=== PATIENT | male | born 1965 | race African-American/Black ===

== ENCOUNTER 2016-11-28 09:46 | Inpatient (IN) | payer OTHER ==
[2016-11-28 10:59] VITALS: BMI 25.8
--- NOTE | 2016-11-28 11:34 | HP ---
COWS - Scale Resting Pulse: 0= [place] 80 or Below Sweatin=Flushed/Facial Moisture Restless Observation: 1= Difficult to Sit Still Pupil Size: 0= Normal to Room Light Bone or Joint Aches: 2= Severe Diffuse Aches Runny Nose/ Eye Tearin= Nasal Congestion GI Upset > 30mins: 3= Vomiting/Diarrhea Tremor Observation: 2= Slight Tremor Visible Yawning Observation: 1= 1-2x During Session Anxiety or Irritability: 2=Irritable/Anxious Goose Flesh Skin: 3=Piloerection COWS Score: 17 CIWA Score - CIWA Score Nausea/Vomitin Muscle Tremors: 3 Anxiety: 4-Mod. Anxious/Guarded Agitation: 2 Paroxysmal Sweats: 3 Orientation: 0-Oriented Tacttile Disturbances: 0-None Auditory Disturbances: 2-Mild Harshness/Frighten Visual Disturbances: 2-Mild Sensitivity Headache: 0-None Present CIWA-Ar Total Score: 21 Admission ROS BHS - HPI Chief Complaint: "I need to stop myself from being an addict like I was in the past. I need to get help." Patient is here to Detox from Alcohol, Heroin, and Percocet (Prescription and from street). Allergies/Adverse Reactions: Allergies Allergy/AdvReac Type Severity Reaction Status Date / Time No Known Allergies Allergy Verified 11/28/16 10:50 History of Present Illness: Pt. is a 51 YO male here to Detox from Alcohol, Heroin, and Percocet ( Prescription and from Street). This is pt.'s first Detox Admission at [facility]. Exam Limitations: No Limitations - Ebola screening Have you traveled outside of the country in the last 21 days: No Have you had contact with anyone from an Ebola affected area: No Have you been sick,other than usual withdrawal symptoms: No Do you have a fever: No - Review of Systems Constitutional: Chills, Diaphoresis, Fever, Loss of Appetite, Malaise, Night Sweats, Changes in sleep, Unexplained wgt Loss (Lost approx. 10 lbs. over last 1 year.) EENT: reports: Blurred Vision, Dental Problems (Several missing teeth.) Respiratory: reports: No Symptoms reported Cardiac: reports: No Symptoms Reported GI: reports: Constipated, Nausea, Poor Appetite, Vomiting, Indigestion, Abdominal cramping : reports: No Symptoms Reported Musculoskeletal: reports: Back Pain, Joint Stiffness Integumentary: reports: No Symptoms Reported Neuro: reports: Tremors Endocrine: reports: No Symptoms Reported Hematology: reports: No Symptoms Reported Psychiatric: reports: Judgement Intact, Mood/Affect Appropiate, Orientated x3, Anxious, Depressed Other Systems: Reviewed and Negative Patient History - Patient Medical History Hx Anemia: No Hx Asthma: No Hx Chronic Obstructive Pulmonary Disease (COPD): No Hx Cancer: No Hx Cardiac Disorders: No Hx Congestive Heart Failure: No Hx Hypertension: Yes (Takes Lisinopril.) Hx Hypercholesterolemia: No Hx Pacemaker: No HX Cerebrovascular Accident: No Hx Seizures: No Hx Dementia: No Hx Diabetes: No Hx Gastrointestinal Disorders: No Hx Liver Disease: No Hx Genitourinary Disorders: No Hx Sexually Transmitted Disorders: No Hx Renal Disease (ESRD): No Hx Thyroid Disease: No Hx Human Immunodeficiency Virus (HIV): No (Last Tested: 1-2 years ago: NEGATIVE. ) Hx Hepatitis C: No (Last Tested Many Years Ago.) Hx Depression: Yes (Takes med.) Hx Suicide Attempt: No (Walked in front of car (stopped) many years ago. PT. DENIES CURRENT SI/HI.) Hx Bipolar Disorder: Yes (Takes med.) Hx Schizophrenia: No - Patient Surgical History Past Surgical History: No Hx Neurologic Surgery: No Hx Cataract Extraction: No Hx Cardiac Surgery: No Hx Lung Surgery: No Hx Breast Surgery: No Hx Breast Biopsy: No Hx Abdominal Surgery: No Hx Appendectomy: No Hx Cholecystectomy: No Hx Genitourinary Surgery: No Hx Section: No Hx Orthopedic Surgery: No Anesthesia Reaction: No - PPD History Previous Implant?: No Documented Results: Negative w/o proof Implanted On Prior [facility] Admission?: No PPD to be Administered?: Yes - Reproductive History Patient is a Female of Child Bearing Age (11 -55 yrs old): No (PATIENT IS MALE.) - Smoking Cessation Smoking history: Current every day smoker Have you smoked in the past 12 months: Yes Aproximately how many cigarettes per day: 20 Cigars Per Day: 0 Hx Chewing Tobacco Use: No Initiated information on smoking cessation: Yes 'Breaking Loose' booklet given: 11/28/16 (GIVEN ON UNIT.) - Substance & Tx. History Hx Alcohol Use: Yes Hx Substance Use: Yes Substance Use Type: Alcohol, Cocaine, Heroin, Marijuana, Opiates, Prescribed Hx Substance Use Treatment: Yes (1 Detox admission many years ago ([place]).) - Substances Abused Alcohol Route: Oral Frequency: Daily Amount used: 1 Pint Liquor, 2 Beers. Age of first use: 15 Date of Last Use: 11/27/16 Heroin Route: Inhalation Frequency: 3-6 times per week Amount used: 2-3 Bags. Age of first use: 50 Date of Last Use: 11/27/16 Percocet Route: Oral Frequency: Daily Amount used: 2-3 X 10-325 mg tablets. Age of first use: 50 Date of Last Use: 11/26/16 Cocaine Route: Inhalation Frequency: 1-3 times last 30 days Amount used: $ 200 Age of first use: 16 Date of Last Use: 11/27/16 Marijuana/Hashish Route: Smoking Frequency: 1-3 times last 30 days Amount used: 1 Gram Age of first use: 15 Date of Last Use: 11/26/16 Oxycontin Route: Oral Frequency: Daily Amount used: 3 X 10 mg tablets. Age of first use: 50 Date of Last Use: 11/26/16 Family Disease History - Family Disease History Family History: Denies Admission Physical Exam S - Vital Signs Vital Signs: Vital Signs - 24 hr 11/28/16 10:54 Temperature 97.3 F L Pulse Rate 60 Respiratory 20 Rate Blood Pressure 135/70 - Physical General Appearance: Yes: Nourished, Appropriately Dressed, Mild Distress, Sweating, Anxious HEENTM: Yes: Hearing grossly Normal, Normocephalic, Normal Voice, COMFORT, Pharynx Normal Respiratory: Yes: Chest Non-Tender, Lungs Clear, No Respiratory Distress Neck: Yes: No masses,lesions,Nodules, Supple, Trachea in good position Breast: Yes: Breast Exam Deferred Cardiology: Yes: Regular Rhythm, Regular Rate, S1, S2 Abdominal: Yes: Normal Bowel Sounds, Non Tender, Flat, Soft Genitourinary: Yes: Within Normal Limits Back: Yes: Decreased Range of Motion, Vertebral Tenderness Musculoskeletal: Yes: Gait Steady, Back pain, Muscle Pain Extremities: Yes: Tremors Neurological: Yes: Fully Oriented, Alert, Normal Mood/Affect, Normal Response Integumentary: Yes: Normal Color, Warm Lymphatic: Yes: Within Normal Limits - Diagnostic (1) Alcohol dependence with uncomplicated withdrawal Current Visit: Yes Status: Acute (2) Opioid dependence with withdrawal Current Visit: Yes Status: Acute (3) Cocaine dependence, uncomplicated Current Visit: Yes Status: Acute (4) Cannabis dependence, uncomplicated Current Visit: Yes Status: Acute (5) Hypertension Current Visit: Yes Status: Chronic Qualifiers: Hypertension type: essential hypertension Qualified Code(s): I10 - Essential (primary) hypertension (6) Nicotine dependence Current Visit: Yes Status: Chronic Qualifiers: Nicotine product type: cigarettes Substance use status: uncomplicated Qualified Code(s): F17.210 - Nicotine dependence, cigarettes, uncomplicated (7) History of depression Current Visit: Yes Status: Chronic (8) History of bipolar disorder Current Visit: Yes Status: Chronic Cleared for Admission S - Detox or Rehab [facility] Level of Care: Medically Managed Detox Regimen/Protocol: Methadone/Librium S Breath Alcohol Content Breath Alcohol Content: 0 Urine Drug Screen - Results Drug Screen Negative: No Urine Drug Screen Results: THC-Marijuana, MAURA-Cocaine, OPI-Opiates
[2016-11-28] MEDS ORDERED: MAGNESIUM CITRATE 300 ML BOTTLE PO PRN (12:13)
[2016-11-28] MEDS ORDERED: chlordiazePOXIDE HCL 25 MG CAPSULE PO PRN (12:13)
[2016-11-28] MEDS ORDERED: IBUPROFEN 400 MG TABLET (FP) PO PRN (12:13)
[2016-11-28] MEDS ORDERED: MAGNESIUM HYDROX 2400MG/30ML ORAL SUSPENSION 30 ML CUP PO PRN (12:13)
[2016-11-28] MEDS ORDERED: MAG HYDROX/AL HYDROX/SIMETH 30 ML UNIT-DOSE CUP PO PRN (12:13)
[2016-11-28] MEDS ORDERED: guaiFENesin/D-METHORPHAN HB 10 ML UNIT-DOSE CUPS PO PRN (12:13)
[2016-11-28] MEDS ORDERED: LOPERAMIDE HCL 2 MG CAPSULE PO PRN (12:13)
[2016-11-28] MEDS ORDERED: diphenhydrAMINE HCL 50 MG CAPSULE PO PRN (12:13)
[2016-11-28] MEDS ORDERED: chlordiazePOXIDE HCL 25 MG CAPSULE PO ONE (12:13)
[2016-11-28] MEDS ORDERED: P-EPHED 60MG/TRIPROLIDI 2.5MG TABLET PO PRN (12:13)
[2016-11-28] MEDS ORDERED: hydrOXYzine PAMOATE 50 MG CAPSULE (FP) PO PRN (12:13)
[2016-11-28] MEDS ORDERED: MENTHOL/PHENOL 1 EACH UD MM PRN (12:13)
[2016-11-28] MEDS ORDERED: METHADONE HCL 10 MG TABLET (FOR DETOX USE ONLY) PO ONE ×2 (13:30→23:00)
[2016-11-28] MEDS: LISINOPRIL 10 MG TABLET (FP) PO SCH (13:33)
[2016-11-28] MEDS: NICOTINE 21 MG/24 HOURS TOPICAL PATCH TD SCH (13:33)
[2016-11-28] MEDS: chlordiazePOXIDE HCL 25 MG CAPSULE PO SCH ×2 (17:34→22:33)
[2016-11-28 18:09] LABS: URINE APPEARANCE CLEAR; URINE BILIRUBIN NEGATIVE (NEGATIVE); URINE BLOOD NEGATIVE (NEGATIVE); URINE COLOR YELLOW; URINE GLUCOSE (UA) NEGATIVE (NEGATIVE); URINE KETONE TRACE (NEGATIVE); URINE LEUK ESTERASE NEGATIVE (NEGATIVE); URINE NITRITE NEGATIVE (NEGATIVE); URINE PROTEIN NEGATIVE (NEGATIVE); URINE UROBILINOGEN NEGATIVE E.U./dl (0.2-1.0)
[2016-11-28] MEDS: NICOTINE POLACRILEX 2 MG GUM BC PRN (20:28)
[2016-11-28] MEDS: THIAMINE HCL 100 MG TABLET (FP) PO SCH (22:33)
[2016-11-29] MEDS: chlordiazePOXIDE HCL 25 MG CAPSULE PO SCH ×4 (05:48→22:13)
[2016-11-29] MEDS: NICOTINE POLACRILEX 2 MG GUM BC PRN (06:40)
[2016-11-29] MEDS ORDERED: METHADONE HCL 10 MG TABLET (FOR DETOX USE ONLY) PO SCH (10:00)
[2016-11-29 10:04] LABS: MCH 32.1 pg (25.7-33.7); MCHC 33.9 g/dl (32.0-35.9); MEAN CELL VOLUME 94.6 fl (80-96); MEAN PLT VOLUME 9.2 fl (7.5-11.1); PLATELET COUNT 166 K/MM3 (134-434); RDW 12.5 % (11.9-15.9); WHITE BLOOD COUNT 7.2 K/mm3 (4.0-10.0)
[2016-11-29] MEDS ORDERED: ONDANSETRON *ODT* 4 MG TABLET SL PRN (10:07)
[2016-11-29 10:09] LABS: ALBUMIN 3.7 g/dl (3.4-5.0); ALK PHOS 77 U/L (45-117); ANION GAP 7 (8-16); BILIRUBIN,TOTAL 0.2 mg/dL (0.2-1.0); CALCIUM 8.9 mg/dL (8.5-10.1); CO2 31 mmol/L (21-32); COCKROFT - GAULT 99.79; GLUCOSE,RANDOM 77 mg/dL (74-106); SGOT/AST 17 U/L (15-37); SGPT/ALT 20 U/L (12-78); TOT PROT 6.8 g/dl (6.4-8.2)
[2016-11-29] MEDS: LISINOPRIL 10 MG TABLET (FP) PO SCH (10:26)
[2016-11-29] MEDS: PRENATAL VITAMINS W/ FOLIC ACID TABLET (FP) PO SCH (10:26)
[2016-11-29] MEDS: NICOTINE 21 MG/24 HOURS TOPICAL PATCH TD SCH (10:27)
[2016-11-29] MEDS ORDERED: ONDANSETRON *ODT* 4 MG TABLET SL ONE (10:30)
--- NOTE | 2016-11-29 10:30 | EKG ---
Test Reason : Blood Pressure : / mmHG Vent. Rate : 058 BPM Atrial Rate : 058 BPM P-R Int : 144 ms QRS Dur : 088 ms QT Int : 412 ms P-R-T Axes : 071 061 043 degrees QTc Int : 404 ms SINUS BRADYCARDIA OTHERWISE NORMAL ECG NO PREVIOUS ECGS AVAILABLE Confirmed by MD TAMMIE, RANDOLPH ([id number]) on 11/29/2016 10:29:42 AM Referred By: Confirmed By:RANDOLPH CHO MD
--- NOTE | 2016-11-29 10:56 | CONSULT ---
[facility] Psychiatric Consult - Data Date of interview: 11/29/16 Admission source: [facility] Identifying data: Mr Lomeli is a 51 years old single Black male, unemployed, domiciled living with girlfriend Substance Abuse History: - Smoking Cessation. Smoking history: Current every day smoker. Have you smoked in the past 12 months: Yes. Aproximately how many cigarettes per day: 20. Cigars Per Day: 0. Hx Chewing Tobacco Use: No. Initiated information on smoking cessation: Yes. 'Breaking Loose' booklet given : 11/28/16 (GIVEN ON UNIT.). - Substance & Tx. History. Hx Alcohol Use: Yes. Hx Substance Use: Yes. Substance Use Type: Alcohol, Cocaine, Heroin, Marijuana , Opiates, Prescribed. Hx Substance Use Treatment: Yes (1 Detox admission many years ago ([place]).). - Substances Abused. Alcohol. Route: Oral. Frequency: Daily. Amount used: 1 Pint Liquor, 2 Beers. Age of first use: 15. Date of Last Use: 11/27/16. Heroin. Route: Inhalation. Frequency: 3-6 times per week. Amount used: 2-3 Bags. Age of first use: 50. Date of Last Use : 11/27/16. Percocet. Route: Oral. Frequency: Daily. Amount used: 2-3 X 10-325 mg tablets. Age of first use: 50. Date of Last Use: 11/26/16. Cocaine. Route: Inhalation. Frequency: 1-3 times last 30 days. Amount used: $ 200. Age of first use: 16. Date of Last Use: 11/27/16. Marijuana/ Hashish. Route: Smoking. Frequency: 1-3 times last 30 days. Amount used: 1 Gram. Age of first use: 15. Date of Last Use: 11/26/16. Oxycontin. Route : Oral. Frequency: Daily. Amount used: 3 X 10 mg tablets. Age of first use: 50. Date of Last Use: 11/26/16 Medical History: Significant for HtN, GERD, LBP Psychiatric History: Reports being diagnosed with Bipolar Disorder in 1992 and has had several psychiatric admisiions to [facility]/[place] [id number], [facility] and most recently at [facility] 4 months ago. He was discharged on Effexor 25 mg po daily, Seroquel 400 mg po HS. Reports that [facility] up to 6-7 months ago.Reports history of suicidal attempt by crossing in front of cars. At present, reports feeling depressed and sleeping poorly Physical/Sexual Abuse/Trauma History: Denies Mental Status Exam - Mental Status Exam Alert and Oriented to: Time, Place, Person Cognitive Function: Fair Patient Appearance: Well Groomed Mood: Depressed Affect: Appropriate Patient Behavior: Cooperative Speech Pattern: Clear Voice Loudness: Normal Thought Process: Intact Thought Disorder: Not Present Hallucinations: Denies Suicidal Ideation: Denies, Past, Plan Homicidal Ideation: Denies Insight/Judgement: Poor Sleep: Poorly Appetite: Fair Muscle strength/Tone: Normal Gait/Station: Normal Psychiatric Findings - Problem List ([place] 1, 2,3) (1) Bipolar disorder Current Visit: Yes Status: Acute (2) Alcohol dependence with uncomplicated withdrawal Current Visit: Yes Status: Acute (3) History of bipolar disorder Current Visit: Yes Status: Chronic (4) Cocaine dependence, uncomplicated Current Visit: Yes Status: Acute (5) Cannabis dependence, uncomplicated Current Visit: Yes Status: Acute (6) Nicotine dependence Current Visit: Yes Status: Chronic Qualifiers: Nicotine product type: cigarettes Substance use status: uncomplicated Qualified Code(s): F17.210 - Nicotine dependence, cigarettes, uncomplicated (7) Hypertension Current Visit: Yes Status: Chronic Qualifiers: Hypertension type: essential hypertension Qualified Code(s): I10 - Essential (primary) hypertension - Initial Treatment Plan Initial Treatment Plan: Start Seroquel 100 mg po HS and Effexor 25 mg po daily
[2016-11-29 11:09] LABS: HIV 1 & 2 AB NEGATIVE; HIV 1 AGp24 NEGATIVE
[2016-11-29 11:41] LABS: SICKLE CELL SCREEN NEGATIVE (NEGATIVE)
[2016-11-29] MEDS: VENLAFAXINE HCL 25 MG TABLET PO SCH (12:09)
--- NOTE | 2016-11-29 12:19 | PN ---
S CIWA - CIWA Score Nausea/Vomitin Muscle Tremors: 4-Moderate,w/Arms Extend Anxiety: 4-Mod. Anxious/Guarded Agitation: 4-Moderately Restless Paroxysmal Sweats: 3 Orientation: 0-Oriented Tacttile Disturbances: 0-None Auditory Disturbances: 0-None Visual Disturbances: 0-None Headache: 0-None Present CIWA-Ar Total Score: 20 BHS COWS - Scale Resting Pulse: 0= [place] 80 or Below Sweatin=Flushed/Facial Moisture Restless Observation: 3= Extraneous Movement Pupil Size: 0= Normal to Room Light Bone or Joint Aches: 1= Mild Discomfort Runny Nose/ Eye Tearin= Runny Nose/Eyes GI Upset > 30mins: 3= Vomiting/Diarrhea Tremor Observation of Outstretched Hands: 2= Slight Tremor Visible Yawning Observation: 1= 1-2x During Session Anxiety or Irritability: 2=Irritable/Anxious Goose Flesh Skin: 0=Smooth Skin COWS Score: 16 S Progress Note (SOAP) Subjective: Anxiety,tremors,sweating,interrupted sleep,restless Objective: 11/29/16 12:18 Vital Signs - 8 hr 11/29/16 11/29/16 06:16 09:47 Temperature 96.4 F L 96.7 F L Pulse Rate 52 L 51 L Respiratory 16 18 Rate Blood Pressure 107/61 127/71 Laboratory Tests 11/28/16 11/29/16 11/29/16 17:00 07:15 07:15 WBC 7.2 RBC 4.33 Hgb 13.9 Hct 40.9 MCV 94.6 MCHC 33.9 RDW 12.5 Plt Count 166 MPV 9.2 Sickle Cell Screen Negative Sodium 140 Potassium 4.1 Chloride 102 Carbon Dioxide 31 Anion Gap 7 L BUN 20 H Creatinine 1.0 Creat Clearance w eGFR > 60 Random Glucose 77 Calcium 8.9 Total Bilirubin 0.2 AST 17 ALT 20 Alkaline Phosphatase 77 Total Protein 6.8 Albumin 3.7 Urine Color Yellow Urine Appearance Clear Urine pH 5.0 Ur Specific [place] 1.025 Urine Protein Negative Urine Glucose (UA) Negative Urine Ketones Trace H Urine Blood Negative Urine Nitrite Negative Urine Bilirubin Negative Urine Urobilinogen Negative Ur Leukocyte Esterase Negative RPR Titer HIV 1&2 Antibody Screen HIV P24 Antigen 11/29/16 11/29/16 07:15 07:30 WBC RBC Hgb Hct MCV MCHC RDW Plt Count MPV Sickle Cell Screen Sodium Potassium Chloride Carbon Dioxide Anion Gap BUN Creatinine Creat Clearance w eGFR Random Glucose Calcium Total Bilirubin AST ALT Alkaline Phosphatase Total Protein Albumin Urine Color Urine Appearance Urine pH Ur Specific [place] Urine Protein Urine Glucose (UA) Urine Ketones Urine Blood Urine Nitrite Urine Bilirubin Urine Urobilinogen Ur Leukocyte Esterase RPR Titer Nonreactive HIV 1&2 Antibody Screen Negative HIV P24 Antigen Negative labs noted Assessment: 11/29/16 12:19 Withdrawal sx. Plan: Continue detox
[2016-11-29] MEDS: PANTOPRAZOLE 40 MG TABLET (FP) PO SCH (13:31)
[2016-11-29] MEDS: THIAMINE HCL 100 MG TABLET (FP) PO SCH (22:13)
[2016-11-29] MEDS: QUEtiapine FUMARATE 100 MG TABLET (FP) PO SCH (22:13)
[2016-11-29] MEDS: TRIMETHOBENZAMIDE HCL 200MG/2ML INJ IM PRN (22:39)
[2016-11-30] MEDS: chlordiazePOXIDE HCL 25 MG CAPSULE PO SCH ×2 (05:49→10:36)
[2016-11-30] MEDS: TRIMETHOBENZAMIDE HCL 200MG/2ML INJ IM PRN (09:34)
[2016-11-30] MEDS: PRENATAL VITAMINS W/ FOLIC ACID TABLET (FP) PO SCH (10:36)
[2016-11-30] MEDS: METHADONE HCL 5 MG TABLET (FOR DETOX USE ONLY) PO SCH (10:36)
[2016-11-30] MEDS: LISINOPRIL 10 MG TABLET (FP) PO SCH (10:36)
[2016-11-30] MEDS: PANTOPRAZOLE 40 MG TABLET (FP) PO SCH (10:36)
[2016-11-30] MEDS: VENLAFAXINE HCL 25 MG TABLET PO SCH (10:37)
[2016-11-30] MEDS: NICOTINE 21 MG/24 HOURS TOPICAL PATCH TD SCH (10:37)
--- NOTE | 2016-11-30 10:52 | PN ---
[facility] CIWA - CIWA Score Nausea/Vomitin Muscle Tremors: 4-Moderate,w/Arms Extend Anxiety: 4-Mod. Anxious/Guarded Agitation: 4-Moderately Restless Paroxysmal Sweats: 1-Minimal Palms Moist Orientation: 0-Oriented Tacttile Disturbances: 3-Moderate Itch/Numb/Burn Auditory Disturbances: 0-None Visual Disturbances: 0-None Headache: 0-None Present CIWA-Ar Total Score: 21 S COWS - Scale Resting Pulse: 0= [place] 80 or Below Sweatin= Chills/Flushing Restless Observation: 3= Extraneous Movement Pupil Size: 2= Moderately Dilated Bone or Joint Aches: 4=Acute Joint/Muscle Pain Runny Nose/ Eye Tearin= Nasal Congestion GI Upset > 30mins: 1= Stomach Cramp Tremor Observation of Outstretched Hands: 1= Tremor [place], Not Seen Yawning Observation: 2= >3x During Session Anxiety or Irritability: 2=Irritable/Anxious Goose Flesh Skin: 0=Smooth Skin COWS Score: 17 [facility] Progress Note (SOAP) Subjective: ANXIETY,SWEATS,NAUSEA,VOMITING,INTERMITTENT SLEEP. Objective: 11/30/16 10:52 Vital Signs Temperature 97.3 F L 11/30/16 09:46 Pulse Rate 58 L 11/30/16 09:46 Respiratory Rate 18 11/30/16 09:46 Blood Pressure 132/82 11/30/16 09:46 O2 Sat by Pulse Oximetry (%) Laboratory Last Values WBC 7.2 K/mm3 (4.0-10.0) 11/29/16 07:15 RBC 4.33 M/mm3 (4.00-5.60) 11/29/16 07:15 Hgb 13.9 GM/dL (11.7-16.9) 11/29/16 07:15 Hct 40.9 % (35.4-49) 11/29/16 07:15 MCV 94.6 fl (80-96) 11/29/16 07:15 MCHC 33.9 g/dl (32.0-35.9) 11/29/16 07:15 RDW 12.5 % (11.9-15.9) 11/29/16 07:15 Plt Count 166 K/MM3 (134-434) 11/29/16 07:15 MPV 9.2 fl (7.5-11.1) 11/29/16 07:15 Sickle Cell Screen Negative (NEGATIVE) 11/29/16 07:15 Sodium 140 mmol/L (136-145) 11/29/16 07:15 Potassium 4.1 mmol/L (3.5-5.1) 11/29/16 07:15 Chloride 102 mmol/L (98-107) 11/29/16 07:15 Carbon Dioxide 31 mmol/L (21-32) 11/29/16 07:15 Anion Gap 7 (8-16) L 11/29/16 07:15 BUN 20 mg/dL (7-18) H 11/29/16 07:15 Creatinine 1.0 mg/dL (0.7-1.3) 11/29/16 07:15 Creat Clearance w eGFR > 60 (>60) 11/29/16 07:15 Random Glucose 77 mg/dL (74-106) 11/29/16 07:15 Calcium 8.9 mg/dL (8.5-10.1) 11/29/16 07:15 Total Bilirubin 0.2 mg/dL (0.2-1.0) 11/29/16 07:15 AST 17 U/L (15-37) 11/29/16 07:15 ALT 20 U/L (12-78) 11/29/16 07:15 Alkaline Phosphatase 77 U/L (45-117) 11/29/16 07:15 Total Protein 6.8 g/dl (6.4-8.2) 11/29/16 07:15 Albumin 3.7 g/dl (3.4-5.0) 11/29/16 07:15 Urine Color Yellow 11/28/16 17:00 Urine Appearance Clear 11/28/16 17:00 Urine pH 5.0 (5.0-8.0) 11/28/16 17:00 Ur Specific [place] 1.025 (1.005-1.025) 11/28/16 17:00 Urine Protein Negative (NEGATIVE) 11/28/16 17:00 Urine Glucose (UA) Negative (NEGATIVE) 11/28/16 17:00 Urine Ketones Trace (NEGATIVE) H 11/28/16 17:00 Urine Blood Negative (NEGATIVE) 11/28/16 17:00 Urine Nitrite Negative (NEGATIVE) 11/28/16 17:00 Urine Bilirubin Negative (NEGATIVE) 11/28/16 17:00 Urine Urobilinogen Negative E.U./dl (0.2-1.0) 11/28/16 17:00 Ur Leukocyte Esterase Negative (NEGATIVE) 11/28/16 17:00 RPR Titer Nonreactive (NONREACTIVE) 11/29/16 07:15 Hepatitis C Antibody 0.1 s/co ratio (0.0-0.9) 11/29/16 07:20 HIV 1&2 Antibody Screen Negative 11/29/16 07:30 HIV P24 Antigen Negative 11/29/16 07:30 Assessment: 11/30/16 10:52 WITHDRAWAL SX Plan: CONTINUE DETOX
[2016-11-30] MEDS: NICOTINE POLACRILEX 2 MG GUM BC PRN (14:39)
[2016-11-30] MEDS: chlordiazePOXIDE 5 MG CAPSULE PO SCH ×2 (17:26→22:59)
[2016-11-30] MEDS: THIAMINE HCL 100 MG TABLET (FP) PO SCH (21:44)
[2016-11-30] MEDS: QUEtiapine FUMARATE 100 MG TABLET (FP) PO SCH (21:45)
[2016-12-01] MEDS: chlordiazePOXIDE 5 MG CAPSULE PO SCH ×2 (06:04→10:38)
[2016-12-01] MEDS: METHADONE HCL 5 MG TABLET (FOR DETOX USE ONLY) PO SCH (10:38)
[2016-12-01] MEDS: PRENATAL VITAMINS W/ FOLIC ACID TABLET (FP) PO SCH (10:38)
[2016-12-01] MEDS: VENLAFAXINE HCL 25 MG TABLET PO SCH (10:38)
[2016-12-01] MEDS: LISINOPRIL 10 MG TABLET (FP) PO SCH (10:38)
[2016-12-01] MEDS: PANTOPRAZOLE 40 MG TABLET (FP) PO SCH (10:38)
[2016-12-01] MEDS: NICOTINE 21 MG/24 HOURS TOPICAL PATCH TD SCH (10:39)
--- NOTE | 2016-12-01 11:12 | PN ---
S Progress Note (SOAP) Subjective: ALERT,IRRITABLE,ANXIOUS,INTERRUPTED SLEEP Objective: 12/01/16 11:11 Vital Signs Temperature 97.1 F L 12/01/16 09:28 Pulse Rate 60 12/01/16 09:28 Respiratory Rate 18 12/01/16 09:28 Blood Pressure 139/79 12/01/16 09:28 O2 Sat by Pulse Oximetry (%) Assessment: 12/01/16 11:11 WITHDRAWAL SYMPTOM Plan: CONTINUE DETOX
[2016-12-01] MEDS: NICOTINE POLACRILEX 2 MG GUM BC PRN (15:05)
[2016-12-01] MEDS: chlordiazePOXIDE HCL 10 MG CAPSULE PO SCH ×2 (17:04→22:31)
[2016-12-01] MEDS: ACETAMINOPHEN 325 MG TABLET (FP) PO PRN (20:25)
[2016-12-01] MEDS: THIAMINE HCL 100 MG TABLET (FP) PO SCH (22:19)
[2016-12-01] MEDS: QUEtiapine FUMARATE 100 MG TABLET (FP) PO SCH (22:19)
[2016-12-02] MEDS: ACETAMINOPHEN 325 MG TABLET (FP) PO PRN ×2 (05:52→19:33)
[2016-12-02] MEDS: chlordiazePOXIDE HCL 10 MG CAPSULE PO SCH ×2 (05:52→10:45)
[2016-12-02] MEDS: NICOTINE POLACRILEX 2 MG GUM BC PRN ×3 (08:47→22:46)
[2016-12-02] MEDS ORDERED: METHADONE HCL 10 MG TABLET (FOR DETOX USE ONLY) PO SCH (10:00)
[2016-12-02] MEDS: PRENATAL VITAMINS W/ FOLIC ACID TABLET (FP) PO SCH (10:45)
[2016-12-02] MEDS: VENLAFAXINE HCL 25 MG TABLET PO SCH (10:45)
[2016-12-02] MEDS: LISINOPRIL 10 MG TABLET (FP) PO SCH (10:45)
[2016-12-02] MEDS: NICOTINE 21 MG/24 HOURS TOPICAL PATCH TD SCH (10:45)
[2016-12-02] MEDS: PANTOPRAZOLE 40 MG TABLET (FP) PO SCH (10:45)
--- NOTE | 2016-12-02 12:15 | PN ---
BHS Progress Note (SOAP) Subjective: Anxious, Interrupted Sleep, Body Aches, H/A, Sweating. Objective: PT. A & O X 3, OBSERVED AMBULATING ON UNIT. 12/02/16 12:13 Vital Signs Temperature 97.4 F L 12/02/16 09:14 Pulse Rate 61 12/02/16 09:14 Respiratory Rate 18 12/02/16 09:14 Blood Pressure 127/77 12/02/16 09:14 O2 Sat by Pulse Oximetry (%) Laboratory Tests 11/28/16 11/29/16 11/29/16 17:00 07:15 07:15 WBC 7.2 RBC 4.33 Hgb 13.9 Hct 40.9 MCV 94.6 MCHC 33.9 RDW 12.5 Plt Count 166 MPV 9.2 Sickle Cell Screen Negative Sodium 140 Potassium 4.1 Chloride 102 Carbon Dioxide 31 Anion Gap 7 L BUN 20 H Creatinine 1.0 Creat Clearance w eGFR > 60 Random Glucose 77 Calcium 8.9 Total Bilirubin 0.2 AST 17 ALT 20 Alkaline Phosphatase 77 Total Protein 6.8 Albumin 3.7 Urine Color Yellow Urine Appearance Clear Urine pH 5.0 Ur Specific [place] 1.025 Urine Protein Negative Urine Glucose (UA) Negative Urine Ketones Trace H Urine Blood Negative Urine Nitrite Negative Urine Bilirubin Negative Urine Urobilinogen Negative Ur Leukocyte Esterase Negative RPR Titer Hepatitis C Antibody HIV 1&2 Antibody Screen HIV P24 Antigen 11/29/16 11/29/16 11/29/16 07:15 07:20 07:30 WBC RBC Hgb Hct MCV MCHC RDW Plt Count MPV Sickle Cell Screen Sodium Potassium Chloride Carbon Dioxide Anion Gap BUN Creatinine Creat Clearance w eGFR Random Glucose Calcium Total Bilirubin AST ALT Alkaline Phosphatase Total Protein Albumin Urine Color Urine Appearance Urine pH Ur Specific [place] Urine Protein Urine Glucose (UA) Urine Ketones Urine Blood Urine Nitrite Urine Bilirubin Urine Urobilinogen Ur Leukocyte Esterase RPR Titer Nonreactive Hepatitis C Antibody 0.1 HIV 1&2 Antibody Screen Negative HIV P24 Antigen Negative LABS NOTED. Assessment: 12/02/16 12:13 WITHDRAWAL SYMPTOMS. Plan: CONTINUE DETOX.
[2016-12-02] MEDS: THIAMINE HCL 100 MG TABLET (FP) PO SCH (22:45)
[2016-12-02] MEDS: QUEtiapine FUMARATE 100 MG TABLET (FP) PO SCH (22:46)
[2016-12-03] MEDS: NICOTINE POLACRILEX 2 MG GUM BC PRN (05:40)
[2016-12-03] MEDS ORDERED: METHADONE HCL 5 MG TABLET (FOR DETOX USE ONLY) PO SCH (06:00)
[2016-12-03] MEDS: PRENATAL VITAMINS W/ FOLIC ACID TABLET (FP) PO SCH (10:48)
[2016-12-03] MEDS: LISINOPRIL 10 MG TABLET (FP) PO SCH (10:48)
[2016-12-03] MEDS: PANTOPRAZOLE 40 MG TABLET (FP) PO SCH (10:48)
[2016-12-03] MEDS: NICOTINE 21 MG/24 HOURS TOPICAL PATCH TD SCH (10:49)
[2016-12-03] MEDS: VENLAFAXINE HCL 25 MG TABLET PO SCH (10:50)
--- NOTE | 2016-12-03 10:53 | DS ---
[facility] Detox Discharge Summary Admission Date: 11/28/16 Discharge Date: 12/03/16 - History Present History: Alcohol Dependence, Cannabis Dependence, Cocaine Dependence, Opioid Dependence Pertinent Past History: HTN Bipolar disorder - Physical Exam Results Vital Signs: Vital Signs Temperature 98.1 F 12/03/16 09:25 Pulse Rate 64 12/03/16 09:25 Respiratory Rate 18 12/03/16 09:25 Blood Pressure 128/72 12/03/16 09:25 O2 Sat by Pulse Oximetry (%) Pertinent Admission Physical Exam Findings: Withdrawal sx. Laboratory Last Values WBC 7.2 K/mm3 (4.0-10.0) 11/29/16 07:15 RBC 4.33 M/mm3 (4.00-5.60) 11/29/16 07:15 Hgb 13.9 GM/dL (11.7-16.9) 11/29/16 07:15 Hct 40.9 % (35.4-49) 11/29/16 07:15 MCV 94.6 fl (80-96) 11/29/16 07:15 MCHC 33.9 g/dl (32.0-35.9) 11/29/16 07:15 RDW 12.5 % (11.9-15.9) 11/29/16 07:15 Plt Count 166 K/MM3 (134-434) 11/29/16 07:15 MPV 9.2 fl (7.5-11.1) 11/29/16 07:15 Sickle Cell Screen Negative (NEGATIVE) 11/29/16 07:15 Sodium 140 mmol/L (136-145) 11/29/16 07:15 Potassium 4.1 mmol/L (3.5-5.1) 11/29/16 07:15 Chloride 102 mmol/L (98-107) 11/29/16 07:15 Carbon Dioxide 31 mmol/L (21-32) 11/29/16 07:15 Anion Gap 7 (8-16) L 11/29/16 07:15 BUN 20 mg/dL (7-18) H 11/29/16 07:15 Creatinine 1.0 mg/dL (0.7-1.3) 11/29/16 07:15 Creat Clearance w eGFR > 60 (>60) 11/29/16 07:15 Random Glucose 77 mg/dL (74-106) 11/29/16 07:15 Calcium 8.9 mg/dL (8.5-10.1) 11/29/16 07:15 Total Bilirubin 0.2 mg/dL (0.2-1.0) 11/29/16 07:15 AST 17 U/L (15-37) 11/29/16 07:15 ALT 20 U/L (12-78) 11/29/16 07:15 Alkaline Phosphatase 77 U/L (45-117) 11/29/16 07:15 Total Protein 6.8 g/dl (6.4-8.2) 11/29/16 07:15 Albumin 3.7 g/dl (3.4-5.0) 11/29/16 07:15 Urine Color Yellow 11/28/16 17:00 Urine Appearance Clear 11/28/16 17:00 Urine pH 5.0 (5.0-8.0) 11/28/16 17:00 Ur Specific [place] 1.025 (1.005-1.025) 11/28/16 17:00 Urine Protein Negative (NEGATIVE) 11/28/16 17:00 Urine Glucose (UA) Negative (NEGATIVE) 11/28/16 17:00 Urine Ketones Trace (NEGATIVE) H 11/28/16 17:00 Urine Blood Negative (NEGATIVE) 11/28/16 17:00 Urine Nitrite Negative (NEGATIVE) 11/28/16 17:00 Urine Bilirubin Negative (NEGATIVE) 11/28/16 17:00 Urine Urobilinogen Negative E.U./dl (0.2-1.0) 11/28/16 17:00 Ur Leukocyte Esterase Negative (NEGATIVE) 11/28/16 17:00 RPR Titer Nonreactive (NONREACTIVE) 11/29/16 07:15 Hepatitis C Antibody 0.1 s/co ratio (0.0-0.9) 11/29/16 07:20 HIV 1&2 Antibody Screen Negative 11/29/16 07:30 HIV P24 Antigen Negative 11/29/16 07:30 labs noted - Treatment Patient has Accepted a Rehab Referral to: [facility] - Medication Discharge Medications: Ambulatory Orders Lisinopril [Prinivil] 10 mg PO DAILY 11/28/16 Naproxen [Naprosyn -] 250 mg PO BID 11/28/16 Quetiapine Fumarate [Seroquel -] 400 mg PO HS 11/28/16 Zolpidem Tartrate [Ambien] 10 mg PO HS 11/28/16 Quetiapine Fumarate [Seroquel] 100 mg PO HS #30 tablet 11/29/16 Venlafaxine HCl [Effexor -] 25 mg PO DAILY #30 tab 11/29/16 - Diagnosis (1) Alcohol dependence with uncomplicated withdrawal Current Visit: Yes Status: Acute (2) Bipolar disorder Current Visit: Yes Status: Acute (3) Cannabis dependence, uncomplicated Current Visit: Yes Status: Acute (4) Cocaine dependence, uncomplicated Current Visit: Yes Status: Acute (5) Opioid dependence with withdrawal Current Visit: Yes Status: Acute (6) Hypertension Current Visit: Yes Status: Chronic Qualifiers: Hypertension type: essential hypertension Qualified Code(s): I10 - Essential (primary) hypertension (7) Nicotine dependence Current Visit: Yes Status: Chronic Qualifiers: Nicotine product type: cigarettes Substance use status: uncomplicated Qualified Code(s): F17.210 - Nicotine dependence, cigarettes, uncomplicated - AMA Did Patient Leave Against Medical Advice: No
[2016-12-03 13:14] VITALS: BP 121/76; PULSE 59; TEMP 97.3
== END 2016-12-03 12:25 | disposition other institution (70) | DRG 773 ==
LOC: YASAS 09:46 → Y3N 12:11
PROVIDERS: ADMIT Internal Medicine; ATTEND Internal Medicine
PROC: HZ2ZZZZ Detoxification Services for Substance Abuse Treatment (ICD-10-PCS; principal; 2016-12-03)
DX: F11.23 Opioid dependence with withdrawal (principal); F10.230 Alcohol dependence with withdrawal, uncomplicated; F14.20 Cocaine dependence, uncomplicated; F12.20 Cannabis dependence, uncomplicated; F17.210 Nicotine dependence, cigarettes, uncomplicated; F31.9 Bipolar disorder, unspecified; I10 Essential (primary) hypertension
CPT/HCPCS: 36415; 80053; 81003; 85027; 85660; 86593; 86803; 87389; 93005; 93010

== ENCOUNTER 2016-12-03 12:35 | Inpatient (IN) | payer OTHER ==
[2016-12-03] MEDS ORDERED: MAGNESIUM HYDROX 2400MG/30ML ORAL SUSPENSION 30 ML CUP PO PRN (13:07)
[2016-12-03] MEDS ORDERED: P-EPHED 60MG/TRIPROLIDI 2.5MG TABLET PO PRN (13:07)
[2016-12-03] MEDS ORDERED: MAG HYDROX/AL HYDROX/SIMETH 30 ML UNIT-DOSE CUP PO PRN (13:07)
[2016-12-03] MEDS ORDERED: IBUPROFEN 600 MG TABLET (FP) PO PRN (13:07)
[2016-12-03] MEDS ORDERED: LOPERAMIDE HCL 2 MG CAPSULE PO PRN (13:07)
[2016-12-03] MEDS ORDERED: guaiFENesin/D-METHORPHAN HB 10 ML UNIT-DOSE CUPS PO PRN (13:07)
[2016-12-03] MEDS ORDERED: ACETAMINOPHEN 325 MG TABLET (FP) PO PRN (13:07)
[2016-12-03] MEDS ORDERED: MENTHOL/PHENOL 1 EACH UD MM PRN (13:07)
[2016-12-03] MEDS ORDERED: MAGNESIUM CITRATE 300 ML BOTTLE PO PRN (13:07)
[2016-12-03] MEDS ORDERED: diphenhydrAMINE HCL 50 MG CAPSULE PO PRN (13:07)
--- NOTE | 2016-12-03 13:11 | HP ---
[facility] Rehab Assess/Revision - Admission History Admitted to Rehab from: [facility] [place] - Vital signs Vital Signs: Vital Signs Period Temp Pulse Resp BP Sys/Montoya Pulse Ox Last 24 Hr 98.5 F 59 18 136/71 - Findings Detox History & Physical reviewed: Yes Concur with findings: Yes
--- NOTE | 2016-12-03 15:38 | HP ---
Psychiatrist Admission - Data Date of interview: 12/03/16 Admission source: [address] [place] [address] Identifying data: This is the first admission to [address] [place] [address] [facility] 51 years [facility] AA male single,unemployed,domiciled,residing with girlfriend. Medical History: Significant for HTN,GERD,LBP. Psychiatric History: Patient [place] with [place] disorder in 1992 [place]He started on Li,Seroquel,Haldol.Patient reports 3-4 psychiatric hospitalizations.Most recent was 2 months ago - ER visit due anxiety,depression, drug use.Patient used to see a psychiatrist at [facility] [place]He stopped attending clinic about 1 yo.Restarted sychotropic medications while in detox: Seroquel 100 mg po hs and Effexor 25 mg po daily. Physical/Sexual Abuse/Trauma History: denies Vital Signs: Vital Signs - 24 hr 12/03/16 12:46 Temperature 98.5 F Pulse Rate 59 L Respiratory 18 Rate Blood Pressure 136/71 Allergies/Adverse Reactions: Allergies Allergy/AdvReac Type Severity Reaction Status Date / Time No Known Allergies Allergy Verified 12/03/16 12:48 Date of last physical exam: 12/04/15 Concur with the findings of this exam: Yes - Substance Abuse/Tx History Hx Alcohol Use: Yes (reports drinking since 15 yo) Hx Substance Use: Yes (cocaine since 16 yo,heroin since 50 yo,pain killers since 50 yo) Substance Use Type: Alcohol, Cocaine, Heroin Hx Substance Use Treatment: Yes (completed jail 10 years ago) - Admission Criteria Previous failed treatment: Yes Poor recovery environment: Yes Comorbidities: Yes Lacks judgement: Yes Mental Status Exam - Mental Status Exam Alert and Oriented to: Time, Place, Person Cognitive Function: Grossly Intact Patient Appearance: Well Groomed Mood: Sad Affect: Mood Congruent Patient Behavior: Cooperative Speech Pattern: Clear Voice Loudness: Normal Thought Process: Goal Oriented Thought Disorder: Not Present Hallucinations: Denies Suicidal Ideation: Denies Homicidal Ideation: Denies Insight/Judgement: Fair Sleep: Difficulty falling asleep Appetite: Good Muscle strength/Tone: Normal Gait/Station: Normal Psychiatric Findings - Problem List ([place] 1, 2,3) (1) Alcohol dependence with uncomplicated withdrawal Status: Chronic (2) Bipolar disorder Status: Chronic (3) Cannabis dependence, uncomplicated Status: Chronic (4) Cocaine dependence, uncomplicated Status: Acute (5) Opioid dependence with withdrawal Status: Chronic (6) Hypertension Status: Chronic Qualifiers: - Initial Treatment Plan Initial Treatment Plan: Continue current medications as per plan.
[2016-12-03] MEDS: NICOTINE POLACRILEX 2 MG GUM BUC PRN ×2 (15:52→21:44)
[2016-12-03] MEDS: THIAMINE HCL 100 MG TABLET (FP) PO SCH (21:42)
[2016-12-03] MEDS: QUEtiapine FUMARATE 100 MG TABLET (FP) PO SCH (21:42)
[2016-12-04] MEDS: NICOTINE POLACRILEX 2 MG GUM BUC PRN ×4 (06:48→19:58)
[2016-12-04] MEDS: LISINOPRIL 10 MG TABLET (FP) PO SCH (10:06)
[2016-12-04] MEDS: VENLAFAXINE HCL 25 MG TABLET PO SCH (10:06)
[2016-12-04] MEDS: PANTOPRAZOLE 40 MG TABLET (FP) PO SCH (10:06)
[2016-12-04] MEDS: PRENATAL VITAMINS W/ FOLIC ACID TABLET (FP) PO SCH (10:06)
[2016-12-04] MEDS: NICOTINE 21 MG/24 HOURS TOPICAL PATCH TD SCH (10:09)
[2016-12-04] MEDS: THIAMINE HCL 100 MG TABLET (FP) PO SCH (21:18)
[2016-12-04] MEDS: QUEtiapine FUMARATE 100 MG TABLET (FP) PO SCH (21:18)
[2016-12-05] MEDS: LISINOPRIL 10 MG TABLET (FP) PO SCH (10:17)
[2016-12-05] MEDS: PRENATAL VITAMINS W/ FOLIC ACID TABLET (FP) PO SCH (10:17)
[2016-12-05] MEDS: PANTOPRAZOLE 40 MG TABLET (FP) PO SCH (10:17)
[2016-12-05] MEDS: VENLAFAXINE HCL 25 MG TABLET PO SCH (10:17)
[2016-12-05] MEDS: NICOTINE 21 MG/24 HOURS TOPICAL PATCH TD SCH (10:18)
[2016-12-05] MEDS: NICOTINE POLACRILEX 2 MG GUM BUC PRN ×2 (10:20→21:44)
[2016-12-05] MEDS: QUEtiapine FUMARATE 100 MG TABLET (FP) PO SCH (21:42)
[2016-12-05] MEDS: THIAMINE HCL 100 MG TABLET (FP) PO SCH (21:42)
[2016-12-06] MEDS: NICOTINE POLACRILEX 2 MG GUM BUC PRN ×3 (06:58→21:57)
[2016-12-06] MEDS: PRENATAL VITAMINS W/ FOLIC ACID TABLET (FP) PO SCH (10:08)
[2016-12-06] MEDS: LISINOPRIL 10 MG TABLET (FP) PO SCH (10:08)
[2016-12-06] MEDS: VENLAFAXINE HCL 25 MG TABLET PO SCH (10:08)
[2016-12-06] MEDS: PANTOPRAZOLE 40 MG TABLET (FP) PO SCH (10:08)
[2016-12-06] MEDS: NICOTINE 21 MG/24 HOURS TOPICAL PATCH TD SCH (10:08)
[2016-12-06] MEDS: THIAMINE HCL 100 MG TABLET (FP) PO SCH (21:57)
[2016-12-06] MEDS: QUEtiapine FUMARATE 100 MG TABLET (FP) PO SCH (21:57)
[2016-12-07 07:15] VITALS: TEMP 97.6
[2016-12-07] MEDS: PANTOPRAZOLE 40 MG TABLET (FP) PO SCH (10:30)
[2016-12-07] MEDS: VENLAFAXINE HCL 25 MG TABLET PO SCH (10:30)
[2016-12-07] MEDS: PRENATAL VITAMINS W/ FOLIC ACID TABLET (FP) PO SCH (10:30)
[2016-12-07] MEDS: LISINOPRIL 10 MG TABLET (FP) PO SCH (10:30)
[2016-12-07] MEDS: NICOTINE 21 MG/24 HOURS TOPICAL PATCH TD SCH (10:31)
[2016-12-07] MEDS: NICOTINE POLACRILEX 2 MG GUM BUC PRN ×2 (10:32→21:43)
[2016-12-07] MEDS: QUEtiapine FUMARATE 100 MG TABLET (FP) PO SCH (21:40)
[2016-12-07] MEDS: THIAMINE HCL 100 MG TABLET (FP) PO SCH (21:40)
[2016-12-08 06:52] VITALS: BP 113/58; PULSE 62
[2016-12-08] MEDS: VENLAFAXINE HCL 25 MG TABLET PO SCH (09:05)
[2016-12-08] MEDS: LISINOPRIL 10 MG TABLET (FP) PO SCH (09:05)
[2016-12-08] MEDS: PANTOPRAZOLE 40 MG TABLET (FP) PO SCH (09:05)
[2016-12-08] MEDS: PRENATAL VITAMINS W/ FOLIC ACID TABLET (FP) PO SCH (09:05)
[2016-12-08] MEDS: NICOTINE 21 MG/24 HOURS TOPICAL PATCH TD SCH (09:06)
--- NOTE | 2016-12-08 11:01 | PN ---
BHS Progress Note Note: patient signed out AMA this am, refused to see a psychiatrist, please see medical staff notes
== END 2016-12-08 09:25 | disposition left against medical advice (07) | DRG 770 ==
LOC: YASAS 12:35 → Y5N 12:38
PROVIDERS: ADMIT Psychiatry & Neurology Psychiatry; ATTEND Psychiatry & Neurology Psychiatry
PROC: HZ42ZZZ Group Counseling for Substance Abuse Treatment, Cognitive-Behavioral (ICD-10-PCS; principal; 2016-12-03)
DX: F11.20 Opioid dependence, uncomplicated (principal); F10.20 Alcohol dependence, uncomplicated; F14.20 Cocaine dependence, uncomplicated; F12.20 Cannabis dependence, uncomplicated; F31.9 Bipolar disorder, unspecified; I10 Essential (primary) hypertension

== ENCOUNTER 2017-02-28 12:29 | Inpatient (IN) | payer OTHER ==
[2017-02-28 13:22] VITALS: BMI 25.8
--- NOTE | 2017-02-28 15:09 | HP ---
COWS - Scale Resting Pulse: 0= [place] 80 or Below Sweatin= Chills/Flushing Restless Observation: 0= Sits Still Pupil Size: 2= Moderately Dilated Bone or Joint Aches: 4=Acute Joint/Muscle Pain Runny Nose/ Eye Tearin= Nasal Congestion GI Upset > 30mins: 1= Stomach Cramp (NO BM X 4 DAYS) Tremor Observation: 1= Tremor [place], Not Seen Yawning Observation: 1= 1-2x During Session Anxiety or Irritability: 2=Irritable/Anxious Goose Flesh Skin: 0=Smooth Skin COWS Score: 13 CIWA Score - CIWA Score Nausea/Vomitin-No Nausea/No Vomiting Muscle Tremors: 3 Anxiety: 4-Mod. Anxious/Guarded Agitation: 3 Paroxysmal Sweats: 1-Minimal Palms Moist Orientation: 0-Oriented Tacttile Disturbances: 3-Moderate Itch/Numb/Burn Auditory Disturbances: 0-None Visual Disturbances: 0-None Headache: 1-Very Mild CIWA-Ar Total Score: 15 Admission [facility] - HPI Chief Complaint: DETOX TX FOR HEROIN, ALCOHOL, AND DEPENDENCE. Allergies/Adverse Reactions: Allergies Allergy/AdvReac Type Severity Reaction Status Date / Time No Known Allergies Allergy Verified 02/28/17 13:42 History of Present Illness: 51 Y/O AA/MALE WITH A HX OF ALCOHOL,HEROIN,COCAINE,MARIJUANA,AND PCP DEPENDENCE SEEKING DETOX TX. 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 REPORTS WAS GIVEN SOME IV FLUIDS. Exam Limitations: No Limitations - Ebola screening Have you traveled outside of the country in the last 21 days: No Have you had contact with anyone from an Ebola affected area: No Have you been sick,other than usual withdrawal symptoms: No Do you have a fever: No - Review of Systems Constitutional: Chills, Loss of Appetite, Night Sweats, Changes in sleep ("I HAVE'NT SLEPT IN 4 DAYS"), Unintentional Wgt. Loss EENT: reports: Blurred Vision, Dental Problems (TOOTH ACHES/MISSING TEETH) Respiratory: reports: No Symptoms reported Cardiac: reports: Chest Pain (SOMETIMES), Lightheadedness GI: reports: Blood Streaked Bowels, Constipated, Diarrhea, Nausea, Poor Fluid Intake, Vomiting, Indigestion (PRILOSEC IN THE PAST), Abdominal cramping : reports: No Symptoms Reported Musculoskeletal: reports: Back Pain Integumentary: reports: No Symptoms Reported Neuro: reports: Headache, Numbness, Tingling, Tremors, Unsteady Gait (FELL DOWN WHILE HIGH/INTOXICATED ON 02/27/17. WENT TO [facility].), Dizziness Endocrine: reports: No Symptoms Reported Hematology: reports: No Symptoms Reported Psychiatric: reports: Orientated x3, Anxious, Depressed (HX BIPOLAR DISORDER-- ON MED) Other Systems: Reviewed and Negative Patient History - Patient Medical History Hx Anemia: No Hx Asthma: No Hx Chronic Obstructive Pulmonary Disease (COPD): No Hx Cancer: No Hx Cardiac Disorders: No Hx Congestive Heart Failure: No Hx Hypertension: Yes (Takes Lisinopril.) Hx Hypercholesterolemia: No Hx Pacemaker: No HX Cerebrovascular Accident: No Hx Seizures: No Hx Dementia: No Hx Diabetes: No Hx Gastrointestinal Disorders: No Hx Liver Disease: No Hx Genitourinary Disorders: No Hx Sexually Transmitted Disorders: No Hx Renal Disease (ESRD): No Hx Thyroid Disease: No Hx Human Immunodeficiency Virus (HIV): No (Last Tested: 1-2 years ago: NEGATIVE. ) Hx Hepatitis C: No (Last Tested Many Years Ago.) Hx Depression: Yes (ON MED) Hx Suicide Attempt: Yes (2013) Hx Bipolar Disorder: Yes (Takes med.) Hx Schizophrenia: No - Patient Surgical History Past Surgical History: No Hx Neurologic Surgery: No Hx Cataract Extraction: No Hx Cardiac Surgery: No Hx Lung Surgery: No Hx Breast Surgery: No Hx Breast Biopsy: No Hx Abdominal Surgery: No Hx Appendectomy: No Hx Cholecystectomy: No Hx Genitourinary Surgery: No Hx Orthopedic Surgery: No Anesthesia Reaction: No - PPD History Previous Implant?: Yes Documented Results: Negative w/o proof Implanted On Prior R Admission?: Yes Date: 11/30/16 Results: 0 mm. PPD to be Administered?: No - Reproductive History Patient is a Female of Child Bearing Age (11 -55 yrs old): No (MALE) Patient : (N/A) - Smoking Cessation Smoking history: Current every day smoker Have you smoked in the past 12 months: Yes Aproximately how many cigarettes per day: 12 Cigars Per Day: 0 Hx Chewing Tobacco Use: No Initiated information on smoking cessation: Yes 'Breaking Loose' booklet given: 02/28/17 - Substance & Tx. History Hx Alcohol Use: Yes (VODKA/BEER/RUM) Hx Substance Use: Yes (COCAINE/HEROIN/PCP) Substance Use Type: Alcohol, Cocaine, Heroin, Marijuana Hx Substance Use Treatment: Yes (LAST TX AT [facility] DETOX) - Substances Abused Heroin Route: Inhalation Frequency: 3-6 times per week Amount used: 5 bags Age of first use: 14 Date of Last Use: 02/27/17 PCP Route: Smoking Frequency: 3-6 times per week Amount used: 1 gram Age of first use: 18 Date of Last Use: 02/26/17 Alcohol Route: Oral Frequency: 3-6 times per week Amount used: 1 pint Age of first use: 14 Date of Last Use: 02/26/17 Cocaine Route: Smoking Frequency: 3-6 times per week Amount used: 5 bags Age of first use: 19 Date of Last Use: 02/27/17 Family Disease History - Family Disease History Family History: Denies Admission Physical Exam [facility] - Vital Signs Vital Signs: Vital Signs - 24 hr 02/28/17 13:20 Temperature 97.1 F L Pulse Rate 70 Respiratory 18 Rate Blood Pressure 140/80 - Physical General Appearance: Yes: Moderate Distress, Irritable, Anxious HEENTM: Yes: EOMI, Normocephalic, COMFORT, Pharynx Normal Respiratory: Yes: Chest Non-Tender, Lungs Clear, Normal Breath Sounds, No Respiratory Distress Neck: Yes: No masses,lesions,Nodules, Supple, Trachea in good position Breast: Yes: Breast Exam Deferred Cardiology: Yes: Regular Rhythm, Regular Rate, S1, S2 Abdominal: Yes: Normal Bowel Sounds, Non Tender, Soft Genitourinary: Yes: Other (N/C) Back: Yes: Within Normal Limits Musculoskeletal: Yes: full range of Motion, Gait Steady 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, Fully Oriented, Alert Integumentary: Yes: Dry, Warm Lymphatic: Yes: Within Normal Limits - Diagnostic (1) Cocaine dependence, uncomplicated Current Visit: Yes Status: Acute (2) Alcohol dependence with uncomplicated withdrawal Current Visit: Yes Status: Acute (3) Cannabis dependence, uncomplicated Current Visit: Yes Status: Acute (4) Hypertension Current Visit: Yes Status: Chronic Qualifiers: Hypertension type: essential hypertension (5) Nicotine dependence Current Visit: Yes Status: Acute Qualifiers: Nicotine product type: cigarettes Substance use status: in withdrawal Qualified Code(s): F17.213 - Nicotine dependence, cigarettes, with withdrawal (6) PCP dependence Current Visit: Yes Status: Acute Cleared for Admission [facility] - Detox or Rehab [facility] Level of Care: Medically Managed Detox Regimen/Protocol: Librium S Breath Alcohol Content Breath Alcohol Content: 0 Urine Drug Screen - Results Drug Screen Negative: No Urine Drug Screen Results: THC-Marijuana, MAURA-Cocaine, PCP-Phencyclidine
[2017-02-28] MEDS ORDERED: MENTHOL/PHENOL 1 EACH UD MM PRN (15:27)
[2017-02-28] MEDS ORDERED: chlordiazePOXIDE HCL 25 MG CAPSULE PO ONE (15:27)
[2017-02-28] MEDS ORDERED: P-EPHED 60MG/TRIPROLIDI 2.5MG TABLET PO PRN (15:27)
[2017-02-28] MEDS ORDERED: LOPERAMIDE HCL 2 MG CAPSULE PO PRN (15:27)
[2017-02-28] MEDS ORDERED: MAGNESIUM CITRATE 300 ML BOTTLE PO PRN (15:27)
[2017-02-28] MEDS ORDERED: chlordiazePOXIDE HCL 25 MG CAPSULE PO PRN (15:27)
[2017-02-28] MEDS ORDERED: diphenhydrAMINE HCL 50 MG CAPSULE PO PRN (15:27)
[2017-02-28] MEDS ORDERED: MAGNESIUM HYDROX 2400MG/30ML ORAL SUSPENSION 30 ML CUP PO PRN (15:27)
[2017-02-28] MEDS ORDERED: IBUPROFEN 400 MG TABLET (FP) PO PRN (15:27)
[2017-02-28] MEDS ORDERED: ACETAMINOPHEN 325 MG TABLET (FP) PO PRN (15:27)
[2017-02-28] MEDS ORDERED: guaiFENesin/D-METHORPHAN HB 10 ML UNIT-DOSE CUPS PO PRN (15:27)
[2017-02-28] MEDS ORDERED: MAG HYDROX/AL HYDROX/SIMETH 30 ML UNIT-DOSE CUP PO PRN (15:27)
[2017-02-28] MEDS ORDERED: hydrOXYzine PAMOATE 50 MG CAPSULE (FP) PO PRN (15:27)
[2017-02-28] MEDS: LISINOPRIL 10 MG TABLET (FP) PO SCH (16:50)
[2017-02-28] MEDS: NICOTINE 14 MG/24 HOURS TOPICAL PATCH TD SCH (16:50)
[2017-02-28] MEDS: chlordiazePOXIDE HCL 25 MG CAPSULE PO SCH ×2 (16:50→22:23)
[2017-02-28 21:09] LABS: URINE APPEARANCE CLEAR; URINE BILIRUBIN NEGATIVE (NEGATIVE); URINE BLOOD NEGATIVE (NEGATIVE); URINE COLOR YELLOW; URINE GLUCOSE (UA) NEGATIVE (NEGATIVE); URINE KETONE TRACE (NEGATIVE); URINE LEUK ESTERASE NEGATIVE (NEGATIVE); URINE NITRITE NEGATIVE (NEGATIVE); URINE PROTEIN NEGATIVE (NEGATIVE); URINE UROBILINOGEN NEGATIVE mg/dL (0.2-1.0)
[2017-02-28] MEDS: THIAMINE HCL 100 MG TABLET (FP) PO SCH (22:23)
[2017-02-28] MEDS: NAPROXEN 250 MG TABLET (FP) PO SCH (22:23)
[2017-03-01] MEDS: chlordiazePOXIDE HCL 25 MG CAPSULE PO SCH ×2 (05:55→10:22)
[2017-03-01] MEDS: NAPROXEN 250 MG TABLET (FP) PO SCH ×2 (09:25→22:25)
[2017-03-01 10:02] LABS: MCH 31.6 pg (25.7-33.7); MCHC 33.3 g/dl (32.0-35.9); MEAN CELL VOLUME 95.1 fl (80-96); MEAN PLT VOLUME 9.5 fl (7.5-11.1); PLATELET COUNT 174 K/MM3 (134-434); RDW 13.5 % (11.9-15.9)
[2017-03-01] MEDS: NICOTINE 14 MG/24 HOURS TOPICAL PATCH TD SCH (10:21)
[2017-03-01] MEDS: PRENATAL VITAMINS W/ FOLIC ACID TABLET (FP) PO SCH (10:22)
[2017-03-01] MEDS: NICOTINE POLACRILEX 2 MG GUM BC PRN (10:25)
[2017-03-01] MEDS: LISINOPRIL 10 MG TABLET (FP) PO SCH (10:25)
[2017-03-01 10:39] LABS: ALBUMIN 3.7 g/dl (3.4-5.0)
[2017-03-01 10:44] LABS: ALK PHOS 72 U/L (45-117); ANION GAP 6 (8-16); BILIRUBIN,TOTAL 0.6 mg/dL (0.2-1.0); CALCIUM 9.3 mg/dL (8.5-10.1); CO2 32 mmol/L (21-32); CREATININE 1.2 mg/dL (0.7-1.3); GLUCOSE,RANDOM 111 mg/dL (74-106); SGOT/AST 18 U/L (15-37); SGPT/ALT 24 U/L (12-78); TOT PROT 6.7 g/dl (6.4-8.2)
--- NOTE | 2017-03-01 10:44 | CONSULT ---
[facility] Psychiatric Consult - Data Date of interview: 03/01/17 Admission source: [facility] Identifying data: Readmission to [facility] for this 51 y/o AA male seeking detox treatment on 3 for heroin,cocaine,alcohol,phencyclidine and marihuana dependence.Patient is single without children,domiciled (lives with fiancee),unemployed and supported by relatives. Substance Abuse History: Discussed with patient in this session.Mr Lomeli confirms this report. Smoking Cessation. Smoking history: Current every day smoker. Have you smoked in the past 12 months: Yes. Aproximately how many cigarettes per day: 12. Cigars Per Day: 0. Hx Chewing Tobacco Use: No. Initiated information on smoking cessation: Yes. 'Breaking Loose' booklet given : 02/28/17. - Substance & Tx. History. Hx Alcohol Use: Yes (VODKA/BEER/RUM). Hx Substance Use: Yes (COCAINE/HEROIN/PCP). Substance Use Type: Alcohol, Cocaine, Heroin, Marijuana. Hx Substance Use Treatment: Yes (LAST TX AT [facility] DETOX). - Substances Abused. Heroin. Route: Inhalation. Frequency: 3-6 times per week. Amount used: 5 bags. Age of first use: 14. Date of Last Use: 02/27/17. PCP. Route: Smoking. Frequency: 3-6 times per week. Amount used : 1 gram. Age of first use: 18. Date of Last Use: 02/26/17. Alcohol. Route: Oral. Frequency: 3-6 times per week. Amount used: 1 pint. Age of first use: 14. Date of Last Use: 02/26/17. Cocaine. Route: Smoking. Frequency: 3-6 times per week. Amount used: 5 bags. Age of first use: 19. Date of Last Use: 02/27/17 Medical History: Consistent with GERD,lower back pain and hypertension. Psychiatric History: Diagnosed with Bipolar Disorder (1992).Patient admits to a history of multiple psychiatric hospitalizations.Known to [facility] and [facility].Maintenance medications : seroquel 400 mg/ hs + effexor (dose not recalled).Mr Lomeli endorses chronic non-adherence to OPD care.Has not seen his psychiatrist ([facility]) for more than a year according to self-report.Off psychotropic medications for over 6-7 months.Noted history of suicide attempt by deliberate self exposure to oncoming traffic ( seven years ago). Physical/Sexual Abuse/Trauma History: Patient denies. Additional Comment: Urine Drug Screen Results: THC-Marijuana, MAURA-Cocaine, PCP- Phencyclidine.Noted. Mental Status Exam - Mental Status Exam Alert and Oriented to: Time, Place, Person Cognitive Function: Good Patient Appearance: Well Groomed Mood: Hopeful, Euthymic Affect: Appropriate, Normal Range Patient Behavior: Fatigued, Appropriate, Cooperative Speech Pattern: Clear Voice Loudness: Normal Thought Process: Goal Oriented Thought Disorder: Not Present Hallucinations: Denies Suicidal Ideation: Denies Homicidal Ideation: Denies Insight/Judgement: Poor Sleep: Poorly, Difficulty falling asleep Appetite: Good Muscle strength/Tone: Normal Gait/Station: Normal Psychiatric Findings - Problem List ([place] 1, 2,3) (1) Alcohol dependence with uncomplicated withdrawal Current Visit: Yes Status: Acute (2) Cannabis dependence, uncomplicated Current Visit: Yes Status: Acute (3) Opioid dependence with withdrawal Current Visit: Yes Status: Acute (4) Cocaine dependence, uncomplicated Current Visit: Yes Status: Acute (5) PCP dependence Current Visit: Yes Status: Acute (6) Nicotine dependence Current Visit: Yes Status: Acute Qualifiers: Nicotine product type: cigarettes Substance use status: in withdrawal Qualified Code(s): F17.213 - Nicotine dependence, cigarettes, with withdrawal (7) Substance induced mood disorder Current Visit: Yes Status: Acute (8) Bipolar disorder Current Visit: Yes Status: Chronic Comment: History.Non compliant with medications. (9) Hypertension Current Visit: Yes Status: Chronic Qualifiers: Hypertension type: essential hypertension Qualified Code(s): I10 - Essential (primary) hypertension (10) Insomnia Current Visit: Yes Status: Acute - Initial Treatment Plan Initial Treatment Plan: Psychoeducation.Previous records reviewed.Detoxification is under way.Medications : seroquel 100 mg po hs + effexor 37.5 mg po daily.Side effects/benefits of each drug are discussed with the patient.Mr Lomeli agrees with this careplan.Observation.
[2017-03-01] MEDS ORDERED: PNEUMOCOCCAL 23 VACCINE 0.5 ML VIAL IM ONE (12:00)
[2017-03-01] MEDS ORDERED: PNEUMOC 13-VAL CONJ-DIP CRM/PF 0.5 ML DISP.SYRIN IM ONE (12:00)
--- NOTE | 2017-03-01 12:03 | PN ---
[facility] CIWA - CIWA Score Nausea/Vomitin-Mild Nausea/No Vomiting Muscle Tremors: 2 Anxiety: 4-Mod. Anxious/Guarded Agitation: 3 Paroxysmal Sweats: 3 Orientation: 0-Oriented Tacttile Disturbances: 2-Mild Itch/Numbness/Burn Auditory Disturbances: 0-None Visual Disturbances: 3-Moderate Sensitivity Headache: 0-None Present CIWA-Ar Total Score: 18 BHS Progress Note (SOAP) Subjective: Sweating, Fatigue, Body Aches, Anxious, Constipation. Objective: PT. A & O X 3, OBSERVED AMBULATING ON UNIT. NO ACUTE DISTRESS. PT. DENIES CHEST PAIN. 03/01/17 12:00 Vital Signs Temperature 96.7 F L 03/01/17 09:28 Pulse Rate 77 03/01/17 09:28 Respiratory Rate 18 03/01/17 09:28 Blood Pressure 113/74 03/01/17 09:28 O2 Sat by Pulse Oximetry (%) Laboratory Tests 02/28/17 03/01/17 03/01/17 20:00 06:00 06:00 WBC 6.0 RBC 4.50 Hgb 14.2 Hct 42.8 MCV 95.1 MCH 31.6 MCHC 33.3 RDW 13.5 Plt Count 174 MPV 9.5 Sodium 140 Potassium 4.1 Chloride 102 Carbon Dioxide 32 Anion Gap 6 L BUN 13 D Creatinine 1.2 Creat Clearance w eGFR > 60 Random Glucose 111 H D Calcium 9.3 Total Bilirubin 0.6 D AST 18 ALT 24 Alkaline Phosphatase 72 Total Protein 6.7 Albumin 3.7 Urine Color Yellow Urine Appearance Clear Urine pH 5.0 Ur Specific [place] >= 1.030 H Urine Protein Negative Urine Glucose (UA) Negative Urine Ketones Trace H Urine Blood Negative Urine Nitrite Negative Urine Bilirubin Negative Urine Urobilinogen Negative Ur Leukocyte Esterase Negative LABS NOTED. RPR, HIV ANTIBODY RESULTS PENDING. 03/01/17 12:02 Assessment: 03/01/17 12:01 WITHDRAWAL SYMPTOMS. Plan: CONTINUE DETOX.
[2017-03-01 12:39] LABS: HIV 1 & 2 AB NEGATIVE; HIV 1 AGp24 NEGATIVE
[2017-03-01] MEDS: VENLAFAXINE HCL 25 MG TABLET PO SCH (15:32)
[2017-03-01] MEDS: PANTOPRAZOLE 40 MG TABLET (FP) PO SCH (15:32)
[2017-03-01] MEDS ORDERED: chlordiazePOXIDE HCL 25 MG CAPSULE PO SCH (17:00)
[2017-03-01] MEDS: diazePAM 5 MG TABLET PO PRN (17:53)
[2017-03-01] MEDS: THIAMINE HCL 100 MG TABLET (FP) PO SCH (22:24)
[2017-03-01] MEDS: QUEtiapine FUMARATE 100 MG TABLET (FP) PO SCH (22:24)
[2017-03-01] MEDS: diazePAM 5 MG TABLET PO SCH (22:24)
[2017-03-02] MEDS: diazePAM 5 MG TABLET PO SCH ×3 (07:47→21:52)
[2017-03-02] MEDS: NAPROXEN 250 MG TABLET (FP) PO SCH ×2 (09:40→21:53)
[2017-03-02] MEDS ORDERED: ONDANSETRON *ODT* 4 MG TABLET SL PRN (10:29)
[2017-03-02] MEDS: PRENATAL VITAMINS W/ FOLIC ACID TABLET (FP) PO SCH (10:38)
[2017-03-02] MEDS: PANTOPRAZOLE 40 MG TABLET (FP) PO SCH (10:39)
[2017-03-02] MEDS: LISINOPRIL 10 MG TABLET (FP) PO SCH (10:39)
[2017-03-02] MEDS: NICOTINE 14 MG/24 HOURS TOPICAL PATCH TD SCH (10:41)
[2017-03-02] MEDS: VENLAFAXINE HCL 25 MG TABLET PO SCH (10:41)
[2017-03-02] MEDS: diazePAM 5 MG TABLET PO PRN (10:44)
--- NOTE | 2017-03-02 13:12 | PN ---
S CIWA - CIWA Score Nausea/Vomitin Muscle Tremors: 4-Moderate,w/Arms Extend Anxiety: 3 Agitation: 2 Paroxysmal Sweats: 3 Orientation: 0-Oriented Tacttile Disturbances: 0-None Auditory Disturbances: 3-Moderate Harsh/Frighten Visual Disturbances: 1-Very Mild Sensitivity Headache: 0-None Present CIWA-Ar Total Score: 19 BHS COWS - Scale Resting Pulse: 0= [place] 80 or Below Sweatin= Chills/Flushing Restless Observation: 1= Difficult to Sit Still Pupil Size: 0= Normal to Room Light Bone or Joint Aches: 2= Severe Diffuse Aches Runny Nose/ Eye Tearin= Nasal Congestion GI Upset > 30mins: 2= Nausea/Diarrhea Tremor Observation of Outstretched Hands: 2= Slight Tremor Visible Yawning Observation: 1= 1-2x During Session Anxiety or Irritability: 2=Irritable/Anxious Goose Flesh Skin: 3=Pil[place] COWS Score: 15 S Progress Note (SOAP) Subjective: Interrupted sleep, Diarrhea, Stomach Cramping, Nausea, Body Aches, Sweating, Tremors. Objective: PT. A & O X 3, OBSERVED AMBULATING ON UNIT. NO ACUTE DISTRESS. PT. DENIES CHEST PAIN. 03/02/17 13:10 Vital Signs Temperature 97.2 F L 03/02/17 09:30 Pulse Rate 61 03/02/17 09:30 Respiratory Rate 18 03/02/17 09:30 Blood Pressure 137/85 03/02/17 09:30 O2 Sat by Pulse Oximetry (%) Laboratory Tests 02/28/17 02/28/17 03/01/17 13:00 20:00 06:00 WBC 6.0 RBC 4.50 Hgb 14.2 Hct 42.8 MCV 95.1 MCH 31.6 MCHC 33.3 RDW 13.5 Plt Count 174 MPV 9.5 Sodium Potassium Chloride Carbon Dioxide Anion Gap BUN Creatinine Creat Clearance w eGFR Random Glucose Calcium Total Bilirubin AST ALT Alkaline Phosphatase Total Protein Albumin Urine Color Yellow Urine Appearance Clear Urine pH 5.0 Ur Specific [place] >= 1.030 H Urine Protein Negative Urine Glucose (UA) Negative Urine Ketones Trace H Urine Blood Negative Urine Nitrite Negative Urine Bilirubin Negative Urine Urobilinogen Negative Ur Leukocyte Esterase Negative RPR Titer HIV 1&2 Antibody Screen Negative HIV P24 Antigen Negative 03/01/17 03/01/17 06:00 06:00 WBC RBC Hgb Hct MCV MCH MCHC RDW Plt Count MPV Sodium 140 Potassium 4.1 Chloride 102 Carbon Dioxide 32 Anion Gap 6 L BUN 13 D Creatinine 1.2 Creat Clearance w eGFR > 60 Random Glucose 111 H D Calcium 9.3 Total Bilirubin 0.6 D AST 18 ALT 24 Alkaline Phosphatase 72 Total Protein 6.7 Albumin 3.7 Urine Color Urine Appearance Urine pH Ur Specific [place] Urine Protein Urine Glucose (UA) Urine Ketones Urine Blood Urine Nitrite Urine Bilirubin Urine Urobilinogen Ur Leukocyte Esterase RPR Titer Nonreactive HIV 1&2 Antibody Screen HIV P24 Antigen LABS NOTED. Assessment: 03/02/17 13:11 WITHDRAWAL SYMPTOMS. Plan: CONTINUE DETOX.
[2017-03-02] MEDS: RANITIDINE HCL 150 MG TABLET (FP) PO SCH ×2 (14:15→21:52)
[2017-03-02] MEDS ORDERED: chlordiazePOXIDE 5 MG CAPSULE PO SCH (17:00)
[2017-03-02] MEDS: NICOTINE POLACRILEX 2 MG GUM BC PRN (17:46)
--- NOTE | 2017-03-02 19:18 | EKG ---
Test Reason : Blood Pressure : / mmHG Vent. Rate : 062 BPM Atrial Rate : 062 BPM P-R Int : 130 ms QRS Dur : 082 ms QT Int : 394 ms P-R-T Axes : 074 072 055 degrees QTc Int : 399 ms NORMAL SINUS RHYTHM NORMAL ECG WHEN COMPARED WITH ECG OF 28-NOV-2016 11:49, NO SIGNIFICANT CHANGE WAS FOUND REPEAT EKG IF CLINICALLY INDICATED Confirmed by SEYMOUR MASTERSON MD ([id number]) on 03/02/2017 7:18:09 PM Referred By: Confirmed By:SEYMOUR MASTERSON MD
[2017-03-02] MEDS: QUEtiapine FUMARATE 100 MG TABLET (FP) PO SCH (21:52)
[2017-03-02] MEDS: THIAMINE HCL 100 MG TABLET (FP) PO SCH (21:52)
[2017-03-03] MEDS ORDERED: ARTIFICIAL TEARS (POLYVINYL ALCOHOL 1.4%) OPTH DROPS OU PRN (10:35)
[2017-03-03] MEDS: NAPROXEN 250 MG TABLET (FP) PO SCH ×2 (10:40→22:35)
[2017-03-03] MEDS: PRENATAL VITAMINS W/ FOLIC ACID TABLET (FP) PO SCH (10:40)
[2017-03-03] MEDS: PANTOPRAZOLE 40 MG TABLET (FP) PO SCH (10:40)
[2017-03-03] MEDS: diazePAM 5 MG TABLET PO SCH ×2 (10:41→22:35)
[2017-03-03] MEDS: NICOTINE 14 MG/24 HOURS TOPICAL PATCH TD SCH (10:41)
[2017-03-03] MEDS: VENLAFAXINE HCL 25 MG TABLET PO SCH (10:41)
[2017-03-03] MEDS: RANITIDINE HCL 150 MG TABLET (FP) PO SCH ×2 (10:42→22:35)
[2017-03-03] MEDS: LISINOPRIL 10 MG TABLET (FP) PO SCH ×2 (10:42→22:38)
[2017-03-03] MEDS: NICOTINE POLACRILEX 2 MG GUM BC PRN (10:44)
--- NOTE | 2017-03-03 13:27 | PN ---
[facility] Progress Note (SOAP) Subjective: Interrupted sleep, Stomach Cramping, Body Aches, Sweating. Objective: PT. A & O X 2 (DISORIENTED ABOUT DAY / DATE). PT. OBSERVED AMBULATING ON UNIT. NO ACUTE DISTRESS. PT. DENIES CHEST PAIN. 03/03/17 13:22 Vital Signs Temperature 97.0 F L 03/03/17 09:51 Pulse Rate 64 03/03/17 09:51 Respiratory Rate 18 03/03/17 09:51 Blood Pressure 145/92 03/03/17 09:51 O2 Sat by Pulse Oximetry (%) Laboratory Tests 02/28/17 02/28/17 03/01/17 13:00 20:00 06:00 WBC 6.0 RBC 4.50 Hgb 14.2 Hct 42.8 MCV 95.1 MCH 31.6 MCHC 33.3 RDW 13.5 Plt Count 174 MPV 9.5 Sodium Potassium Chloride Carbon Dioxide Anion Gap BUN Creatinine Creat Clearance w eGFR Random Glucose Calcium Total Bilirubin AST ALT Alkaline Phosphatase Total Protein Albumin Urine Color Yellow Urine Appearance Clear Urine pH 5.0 Ur Specific [place] >= 1.030 H Urine Protein Negative Urine Glucose (UA) Negative Urine Ketones Trace H Urine Blood Negative Urine Nitrite Negative Urine Bilirubin Negative Urine Urobilinogen Negative Ur Leukocyte Esterase Negative RPR Titer HIV 1&2 Antibody Screen Negative HIV P24 Antigen Negative 03/01/17 03/01/17 06:00 06:00 WBC RBC Hgb Hct MCV MCH MCHC RDW Plt Count MPV Sodium 140 Potassium 4.1 Chloride 102 Carbon Dioxide 32 Anion Gap 6 L BUN 13 D Creatinine 1.2 Creat Clearance w eGFR > 60 Random Glucose 111 H D Calcium 9.3 Total Bilirubin 0.6 D AST 18 ALT 24 Alkaline Phosphatase 72 Total Protein 6.7 Albumin 3.7 Urine Color Urine Appearance Urine pH Ur Specific [place] Urine Protein Urine Glucose (UA) Urine Ketones Urine Blood Urine Nitrite Urine Bilirubin Urine Urobilinogen Ur Leukocyte Esterase RPR Titer Nonreactive HIV 1&2 Antibody Screen HIV P24 Antigen LABS NOTED. Assessment: 03/03/17 13:23 WITHDRAWAL SYMPTOMS. Plan: CONTINUE DETOX. CHANGE LISINOPRIL TO 10 MG PO BID.
[2017-03-03] MEDS ORDERED: chlordiazePOXIDE HCL 10 MG CAPSULE PO SCH (17:00)
[2017-03-03] MEDS: THIAMINE HCL 100 MG TABLET (FP) PO SCH (22:33)
[2017-03-03] MEDS: QUEtiapine FUMARATE 100 MG TABLET (FP) PO SCH (22:33)
--- NOTE | 2017-03-04 09:15 | DS ---
[facility] Detox Discharge Summary Admission Date: 02/28/17 Discharge Date: 03/04/17 - History Present History: Alcohol Dependence, Cannabis Dependence, Cocaine Dependence - Physical Exam Results Vital Signs: Vital Signs Temperature 99.1 F 03/03/17 22:15 Pulse Rate 82 03/03/17 22:15 Respiratory Rate 18 03/03/17 22:15 Blood Pressure 124/68 03/03/17 22:15 O2 Sat by Pulse Oximetry (%) - Treatment Hospital Course: Detox Protocol Followed, Detoxed Safely, Responded well, Discharged Condition Good Patient has Accepted a Rehab Referral to: [facility] - Medication Discharge Medications: Ambulatory Orders Lisinopril [Prinivil] 10 mg PO DAILY 11/28/16 Naproxen [Naprosyn -] 250 mg PO BID 11/28/16 Quetiapine Fumarate [Seroquel -] 400 mg PO HS 11/28/16 Zolpidem Tartrate [Ambien] 10 mg PO HS 11/28/16 Quetiapine Fumarate [Seroquel] 100 mg PO HS #30 tablet 11/29/16 Venlafaxine HCl [Effexor -] 25 mg PO DAILY #30 tab 11/29/16 Quetiapine Fumarate [Seroquel] 100 mg PO HS #30 tablet 03/01/17 Venlafaxine HCl [Effexor -] 25 mg PO DAILY #30 tablet 03/01/17 - Diagnosis (1) Alcohol dependence with uncomplicated withdrawal Current Visit: Yes Status: Chronic (2) Cannabis dependence, uncomplicated Current Visit: Yes Status: Chronic (3) Cocaine dependence, uncomplicated Current Visit: Yes Status: Chronic (4) Nicotine dependence Current Visit: Yes Status: Chronic Qualifiers: Nicotine product type: cigarettes Substance use status: in withdrawal Qualified Code(s): F17.213 - Nicotine dependence, cigarettes, with withdrawal (5) Bipolar disorder Current Visit: Yes Status: Chronic Qualifiers: Current episode severity: unspecified (6) Hypertension Current Visit: Yes Status: Chronic Qualifiers: Hypertension type: essential hypertension Qualified Code(s): I10 - Essential (primary) hypertension - AMA Did Patient Leave Against Medical Advice: No (pt improved doing better wants to go to rehab.)
[2017-03-04 10:28] VITALS: BP 142/83; PULSE 65; TEMP 96.5
[2017-03-04] MEDS: NAPROXEN 250 MG TABLET (FP) PO SCH (10:49)
[2017-03-04] MEDS: VENLAFAXINE HCL 25 MG TABLET PO SCH (10:49)
[2017-03-04] MEDS: PANTOPRAZOLE 40 MG TABLET (FP) PO SCH (10:49)
[2017-03-04] MEDS: LISINOPRIL 10 MG TABLET (FP) PO SCH (10:49)
[2017-03-04] MEDS: diazePAM 5 MG TABLET PO SCH (10:50)
[2017-03-04] MEDS: NICOTINE 14 MG/24 HOURS TOPICAL PATCH TD SCH (10:50)
[2017-03-04] MEDS: PRENATAL VITAMINS W/ FOLIC ACID TABLET (FP) PO SCH (10:50)
[2017-03-04] MEDS: RANITIDINE HCL 150 MG TABLET (FP) PO SCH (10:50)
[2017-03-05] MEDS ORDERED: diazePAM 5 MG TABLET PO SCH (10:00)
== END 2017-03-04 12:44 | disposition other institution (70) | DRG 773 ==
LOC: YASAS 12:29 → Y3N 15:54
PROVIDERS: ADMIT Internal Medicine; ATTEND Internal Medicine
PROC: HZ2ZZZZ Detoxification Services for Substance Abuse Treatment (ICD-10-PCS; principal; 2017-03-04)
DX: F11.23 Opioid dependence with withdrawal (principal); F10.230 Alcohol dependence with withdrawal, uncomplicated; F14.20 Cocaine dependence, uncomplicated; F12.20 Cannabis dependence, uncomplicated; F16.20 Hallucinogen dependence, uncomplicated; F17.210 Nicotine dependence, cigarettes, uncomplicated; F31.9 Bipolar disorder, unspecified; F19.24 Other psychoactive substance dependence with psychoactive substance-induced mood disorder; G47.00 Insomnia, unspecified; I10 Essential (primary) hypertension
CPT/HCPCS: 36415; 80053; 81003; 85027; 86593; 87389; 90732; 93005; 93010; G0009

== ENCOUNTER 2017-03-04 13:12 | Inpatient (IN) | payer OTHER ==
[2017-03-04] MEDS ORDERED: ACETAMINOPHEN 325 MG TABLET (FP) PO PRN (14:45)
[2017-03-04] MEDS ORDERED: MAGNESIUM CITRATE 300 ML BOTTLE PO PRN (14:45)
[2017-03-04] MEDS ORDERED: LOPERAMIDE HCL 2 MG CAPSULE PO PRN (14:45)
[2017-03-04] MEDS ORDERED: diphenhydrAMINE HCL 50 MG CAPSULE PO PRN (14:45)
[2017-03-04] MEDS ORDERED: MAGNESIUM HYDROX 2400MG/30ML ORAL SUSPENSION 30 ML CUP PO PRN (14:45)
[2017-03-04] MEDS ORDERED: MENTHOL/PHENOL 1 EACH UD MM PRN (14:45)
[2017-03-04] MEDS ORDERED: IBUPROFEN 400 MG TABLET (FP) PO PRN (14:45)
[2017-03-04] MEDS ORDERED: hydrOXYzine PAMOATE 50 MG CAPSULE (FP) PO PRN (14:45)
[2017-03-04] MEDS ORDERED: P-EPHED 60MG/TRIPROLIDI 2.5MG TABLET PO PRN (14:45)
[2017-03-04] MEDS ORDERED: MAG HYDROX/AL HYDROX/SIMETH 30 ML UNIT-DOSE CUP PO PRN (14:45)
[2017-03-04] MEDS ORDERED: guaiFENesin/D-METHORPHAN HB 10 ML UNIT-DOSE CUPS PO PRN (14:45)
--- NOTE | 2017-03-04 14:45 | HP ---
[facility] Rehab Assess/Revision - Admission History Admitted to Rehab from: [facility] Date of Admission to Rehab: 03/04/17 - Findings Detox History & Physical reviewed: Yes Concur with findings: Yes Comments/Additional Findings: for rehab as protocol
--- NOTE | 2017-03-04 15:43 | HP ---
Psychiatrist Admission - Data Date of interview: 03/04/17 Admission source: 3n [facility]ifying [facility]: [facility] i51 year old AA male who is single without children,domiciled (lives with fiance),unemployed and supported by relatives. Medical History: GERD, HTN and lower back pain. Smokes cigarettes 12 a day. Psychiatric History: Patient reports was diagnosed with Bipolar disorder while was in [facility], , reports was on Birdseye(but does not want med), Seroquel and Effexor. Reports 3 or 4 psychaitric ho, , most recen visit to [facility] in . Non-compliant with aftercare and medications, states his PCP from [facility] gives him scripts. Seen by while at 3 N and was prescirbed Seroquel 100 mg po hs and Physical/Sexual Abuse/Trauma History: Denies Allergies/Adverse Reactions: Allergies Allergy/AdvReac Type Severity Reaction Status Date / Time No Known Allergies Allergy Verified 03/04/17 13:21 Date of last physical exam: 02/28/17 Concur with the findings of this exam: Yes - Substance Abuse/Tx History Hx Alcohol Use: Yes (1 pint of vodka 3-6 x week) Hx Substance Use: Yes (PCP 3-6 times a week) Substance Use Type: Cocaine (5 bags, 3-6 times a week), Heroin (3-6 x week) Hx Substance Use Treatment: Yes - Admission Criteria Previous failed treatment: Yes Poor recovery environment: Yes Comorbidities: Yes Lacks judgement: Yes Mental Status Exam - Mental Status Exam Alert and Oriented to: Time, Place, Person Cognitive Function: Good Patient Appearance: Well Groomed Mood: Hopeful Affect: Appropriate, Mood Congruent, Normal Range Patient Behavior: Appropriate, Cooperative Speech Pattern: Clear, Appropriate Voice Loudness: Normal Thought Process: Intact, Goal Oriented Thought Disorder: Not Present Hallucinations: Denies Suicidal Ideation: Denies Homicidal Ideation: Denies Insight/Judgement: Fair Sleep: Fair Appetite: Fair Muscle strength/Tone: Normal Gait/Station: Normal Psychiatric Findings - Problem List ([place] 1, 2,3) (1) PCP dependence Current Visit: No Status: Acute (2) Bipolar disorder Current Visit: No Status: Chronic Qualifiers: Current episode severity: unspecified Comment: History.Non compliant with medications. (3) Cocaine dependence Current Visit: Yes Status: Acute (4) Opioid dependence Current Visit: Yes Status: Acute - Initial Treatment Plan Initial Treatment Plan: Will continue Seroquel 100 mg po hs and Effxor 75 mg po daily, moonitor rpogress as needed.
[2017-03-04] MEDS ORDERED: QUEtiapine FUMARATE 100 MG TABLET (FP) PO SCH (22:00)
[2017-03-04] MEDS ORDERED: THIAMINE HCL 100 MG TABLET (FP) PO SCH (22:00)
[2017-03-04] MEDS ORDERED: LISINOPRIL 10 MG TABLET (FP) PO SCH (22:00)
[2017-03-05] MEDS ORDERED: PRENATAL VITAMINS W/ FOLIC ACID TABLET (FP) PO SCH (10:00)
[2017-03-05] MEDS ORDERED: PANTOPRAZOLE 40 MG TABLET (FP) PO SCH (10:00)
[2017-03-05] MEDS ORDERED: VENLAFAXINE HCL 75 MG TABLET PO SCH (10:00)
== END 2017-03-04 20:51 | disposition left against medical advice (07) | DRG 770 ==
LOC: YASAS 13:12 → Y5N 13:13
PROVIDERS: ADMIT Psychiatry & Neurology Psychiatry; ATTEND Psychiatry & Neurology Psychiatry
PROC: HZ42ZZZ Group Counseling for Substance Abuse Treatment, Cognitive-Behavioral (ICD-10-PCS; principal; 2017-03-04)
DX: F11.20 Opioid dependence, uncomplicated (principal); F14.10 Cocaine abuse, uncomplicated; F16.20 Hallucinogen dependence, uncomplicated; F31.9 Bipolar disorder, unspecified; Z91.14 Patient's other noncompliance with medication regimen

== ENCOUNTER 2017-05-14 11:26 | Inpatient (IN) | payer OTHER ==
[2017-05-14 12:07] VITALS: BMI 25.0
--- NOTE | 2017-05-14 12:51 | HP ---
COWS - Scale Resting Pulse: 0= [place] 80 or Below Sweatin= Chills/Flushing Restless Observation: 0= Sits Still Pupil Size: 0= Normal to Room Light Bone or Joint Aches: 1= Mild Discomfort Runny Nose/ Eye Tearin= Nasal Congestion GI Upset > 30mins: 1= Stomach Cramp Tremor Observation: 1= Tremor [place], Not Seen Yawning Observation: 1= 1-2x During Session Anxiety or Irritability: 1=Feels Anxious/Irritable Goose Flesh Skin: 0=Smooth Skin COWS Score: 7 CIWA Score - CIWA Score Nausea/Vomitin-Mild Nausea/No Vomiting Muscle Tremors: 4-Moderate,w/Arms Extend Anxiety: 4-Mod. Anxious/Guarded Agitation: 1-Slight > Activity Paroxysmal Sweats: 1-Minimal Palms Moist Orientation: 1-Uncertain about Date Tacttile Disturbances: 0-None Auditory Disturbances: 0-None Visual Disturbances: 1-Very Mild Sensitivity Headache: 1-Very Mild CIWA-Ar Total Score: 14 Admission ROS S - HPI Chief Complaint: i'm starting to hand picker, I need help, I have a family now, my lady is clean and she gave me an ultimatum Allergies/Adverse Reactions: Allergies Allergy/AdvReac Type Severity Reaction Status Date / Time No Known Allergies Allergy Verified 03/04/17 13:21 History of Present Illness: 52 yo woman here for detox from heroin, alcohol and also using cocaine and marijuana. Was here for detox in february 2017 but picked up again a few weeks ago. No seizures, but does have black outs. Exam Limitations: Clinical Condition - Ebola screening Have you traveled outside of the country in the last 21 days: No Have you had contact with anyone from an Ebola affected area: No Have you been sick,other than usual withdrawal symptoms: No Do you have a fever: No Patient History - Patient Medical History Hx Anemia: No Hx Asthma: No Hx Chronic Obstructive Pulmonary Disease (COPD): No Hx Cancer: No Hx Cardiac Disorders: Yes ('heart murmur') Hx Congestive Heart Failure: No Hx Hypertension: Yes Hx Hypercholesterolemia: No Hx Pacemaker: No HX Cerebrovascular Accident: No Hx Seizures: No Hx Dementia: No Hx Diabetes: No Hx Gastrointestinal Disorders: No Hx Liver Disease: No Hx Genitourinary Disorders: No Hx Sexually Transmitted Disorders: No Hx Renal Disease (ESRD): No Hx Thyroid Disease: No Hx Human Immunodeficiency Virus (HIV): No Hx Hepatitis C: No Hx Depression: Yes Hx Suicide Attempt: Yes (years ago - walk in front of car ) Hx Bipolar Disorder: Yes (Takes med.) Hx Schizophrenia: No Other Medical History: back pain - degenerative disc disease - Patient Surgical History Past Surgical History: No Hx Neurologic Surgery: No Hx Cataract Extraction: No Hx Cardiac Surgery: No Hx Lung Surgery: No Hx Breast Surgery: No Hx Breast Biopsy: No Hx Abdominal Surgery: No Hx Appendectomy: No Hx Cholecystectomy: No Hx Genitourinary Surgery: No Hx Section: No Hx Orthopedic Surgery: No Anesthesia Reaction: No - PPD History Previous Implant?: Yes Documented Results: Negative w/proof Date: 11/30/16 Results: 0mm PPD to be Administered?: No - Reproductive History Patient is a Female of Child Bearing Age (11 -55 yrs old): No (male) - Smoking Cessation Smoking history: Current every day smoker Have you smoked in the past 12 months: Yes Aproximately how many cigarettes per day: 20 Cigars Per Day: 0 Hx Chewing Tobacco Use: No Initiated information on smoking cessation: Yes 'Breaking Loose' booklet given: 05/14/17 (give on floor) - Substance & Tx. History Hx Alcohol Use: Yes Hx Substance Use: Yes Substance Use Type: Alcohol, Cocaine, Heroin Hx Substance Use Treatment: Yes (detox, rehab) - Substances Abused Alcohol Route: Oral Frequency: 3-6 times per week Amount used: one sixteen oz beer; 9 'nips' liquor Age of first use: 15 Date of Last Use: 05/13/17 Heroin Route: Inhalation Frequency: 3-6 times per week Amount used: 1/2 bag Age of first use: 23 Date of Last Use: 05/13/17 Cocaine Route: Inhalation Frequency: 3-6 times per week Amount used: 1 gm Age of first use: 15 Date of Last Use: 05/13/17 Marijuana/Hashish Route: Smoking Frequency: Daily Amount used: 1/2 bag Age of first use: 15 Date of Last Use: 05/13/17 Family Disease History - Family Disease History Family Disease History: Diabetes: Father (, hx etoh/drugs), Heart Disease: Mother (living, ), Other: Father, Mother, Brother (six - healthy) Admission Physical Exam BHS - Vital Signs Vital Signs: Vital Signs - 24 hr 05/14/17 11:50 Temperature 96.3 F L Pulse Rate 66 Respiratory 20 Rate Blood Pressure 142/75 - Physical General Appearance: Yes: Nourished, Appropriately Dressed, Mild Distress, Anxious HEENTM: Yes: Hearing grossly Normal, Normocephalic, Normal Voice, Pharynx Normal Respiratory: Yes: Normal Breath Sounds, No Respiratory Distress Neck: Yes: No masses,lesions,Nodules, Supple Breast: Yes: Breast Exam Deferred Cardiology: Yes: Regular Rhythm, Regular Rate Abdominal: Yes: Soft Genitourinary: Yes: Within Normal Limits Back: Yes: Normal Inspection Musculoskeletal: Yes: full range of Motion, Gait Steady, Back pain Extremities: Yes: Normal Inspection, Non-Tender Neurological: Yes: Alert, Normal Mood/Affect, Normal Response Integumentary: Yes: Normal Color, Warm Lymphatic: Yes: Within Normal Limits - Diagnostic (1) Opioid dependence with withdrawal Current Visit: Yes Status: Chronic (2) Alcohol dependence with uncomplicated withdrawal Current Visit: Yes Status: Chronic (3) Cannabis dependence, uncomplicated Current Visit: Yes Status: Chronic (4) Cocaine dependence, uncomplicated Current Visit: Yes Status: Chronic (5) Back pain, chronic Current Visit: Yes Status: Chronic Qualifiers: Back pain location: low back pain Back pain laterality: unspecified Sciatica presence: without sciatica Qualified Code(s): M54.5 - Low back pain; M54.5 - Low back pain; G89.29 - Other chronic pain; G89.29 - Other chronic pain (6) Hypertension Current Visit: Yes Status: Chronic Qualifiers: Hypertension type: essential hypertension Qualified Code(s): I10 - Essential (primary) hypertension; I10 - Essential (primary) hypertension; I10 - Essential (primary) hypertension (7) Nicotine dependence Current Visit: Yes Status: Chronic Qualifiers: Nicotine product type: cigarettes Substance use status: in withdrawal Qualified Code(s): F17.213 - Nicotine dependence, cigarettes, with withdrawal; F17.213 - Nicotine dependence, cigarettes, with withdrawal Cleared for Admission BHS - Detox or Rehab [facility] Level of Care: Medically Managed Detox Regimen/Protocol: Methadone/Librium S Breath Alcohol Content Breath Alcohol Content: 0 Urine Drug Screen - Results Drug Screen Negative: No Urine Drug Screen Results: THC-Marijuana, MAURA-Cocaine, OPI-Opiates
[2017-05-14] MEDS ORDERED: chlordiazePOXIDE HCL 25 MG CAPSULE PO PRN (13:03)
[2017-05-14] MEDS ORDERED: hydrOXYzine PAMOATE 25 MG CAPSULE (FP) PO PRN (13:03)
[2017-05-14] MEDS ORDERED: MAGNESIUM CITRATE 300 ML BOTTLE PO PRN (13:03)
[2017-05-14] MEDS ORDERED: LOPERAMIDE HCL 2 MG CAPSULE PO PRN (13:03)
[2017-05-14] MEDS ORDERED: guaiFENesin/D-METHORPHAN HB 10 ML UNIT-DOSE CUPS PO PRN (13:03)
[2017-05-14] MEDS ORDERED: MAGNESIUM HYDROX 2400MG/30ML ORAL SUSPENSION 30 ML CUP PO PRN (13:03)
[2017-05-14] MEDS ORDERED: METHADONE HCL 10 MG TABLET (FOR DETOX USE ONLY) PO ONE ×2 (13:03→23:00)
[2017-05-14] MEDS ORDERED: P-EPHED 60MG/TRIPROLIDI 2.5MG TABLET PO PRN (13:03)
[2017-05-14] MEDS ORDERED: MENTHOL/PHENOL 1 EACH UD MM PRN (13:03)
[2017-05-14] MEDS ORDERED: ACETAMINOPHEN 325 MG TABLET (FP) PO PRN (13:03)
[2017-05-14] MEDS ORDERED: IBUPROFEN 400 MG TABLET (FP) PO PRN (13:03)
[2017-05-14] MEDS ORDERED: chlordiazePOXIDE HCL 25 MG CAPSULE PO ONE (14:15)
[2017-05-14] MEDS ORDERED: METHADONE HCL 10 MG TABLET (FOR DETOX USE ONLY) ONE (18:06)
[2017-05-14] MEDS: NICOTINE 21 MG/24 HOURS TOPICAL PATCH TD SCH (18:22)
[2017-05-14] MEDS: chlordiazePOXIDE HCL 25 MG CAPSULE PO SCH ×2 (18:23→22:12)
[2017-05-14] MEDS: THIAMINE HCL 100 MG TABLET (FP) PO SCH (22:12)
[2017-05-14] MEDS: LISINOPRIL 10 MG TABLET (FP) PO SCH (22:12)
[2017-05-14] MEDS: NICOTINE POLACRILEX 4 MG GUM BUC PRN (22:16)
[2017-05-14] MEDS: MAG HYDROX/AL HYDROX/SIMETH 30 ML UNIT-DOSE CUP PO PRN (22:56)
[2017-05-14 23:07] LABS: URINE APPEARANCE CLEAR; URINE BILIRUBIN NEGATIVE (NEGATIVE); URINE BLOOD NEGATIVE (NEGATIVE); URINE COLOR YELLOW; URINE GLUCOSE (UA) NEGATIVE (NEGATIVE); URINE KETONE TRACE (NEGATIVE); URINE NITRITE NEGATIVE (NEGATIVE); URINE PROTEIN NEGATIVE (NEGATIVE); URINE UROBILINOGEN 4.0 E.U/dl mg/dL (0.2-1.0)
[2017-05-15] MEDS: chlordiazePOXIDE HCL 25 MG CAPSULE PO SCH ×4 (05:07→22:31)
[2017-05-15] MEDS ORDERED: METHADONE HCL 10 MG TABLET (FOR DETOX USE ONLY) PO SCH (10:00)
[2017-05-15] MEDS: LISINOPRIL 10 MG TABLET (FP) PO SCH ×2 (10:18→22:32)
[2017-05-15] MEDS: PRENATAL VITAMINS W/ FOLIC ACID TABLET (FP) PO SCH (10:18)
[2017-05-15] MEDS: NICOTINE 21 MG/24 HOURS TOPICAL PATCH TD SCH (10:19)
[2017-05-15] MEDS: NICOTINE POLACRILEX 4 MG GUM BUC PRN (10:20)
[2017-05-15 10:44] LABS: URINE LEUK ESTERASE Negative (NEGATIVE)
[2017-05-15 11:15] LABS: MCH 31.5 pg (25.7-33.7); MCHC 33.4 g/dl (32.0-35.9); MEAN CELL VOLUME 94.5 fl (80-96); MEAN PLT VOLUME 8.5 fl (7.5-11.1); PLATELET COUNT 180 K/MM3 (134-434); RDW 13.5 % (11.9-15.9)
[2017-05-15 11:31] LABS: ALBUMIN 3.1 g/dl (3.4-5.0); ANION GAP 9 (8-16); CALCIUM 8.1 mg/dL (8.5-10.1); CO2 31 mmol/L (21-32); GLUCOSE,RANDOM 101 mg/dL (74-106); SGOT/AST 15 U/L (15-37); SGPT/ALT 22 U/L (12-78)
[2017-05-15 11:33] LABS: ALK PHOS 62 U/L (45-117); BILIRUBIN,TOTAL 0.3 mg/dL (0.2-1.0); TOT PROT 5.8 g/dl (6.4-8.2)
--- NOTE | 2017-05-15 12:32 | CONSULT ---
[facility] Psychiatric Consult - Data Date of interview: 05/15/17 Admission source: Self-referred Identifying data: Mr Lomeli is a 52 years old Black male in a c/l relationship, unemployed supported by c/l and family, domiciled living with common-law seeking detox treatment for alcohol, heroin, cocaine and marijuana Substance Abuse History: Reports history of alcohol, heroin, cocaine and marijuana use. Refer to addiction counselor's note for further information Medical History: Significant for heart murmur, HTN, degenerative disc disease. Smokes cigarettes 1ppd Psychiatric History: Reports being diagnosed with Bipolar Disorder in 1992. Reports history of multiple previous psychiatric admissions. He is known to [place] and [facility]. Most recent admission was 2 months ago to [facility] for SI. Claims that he was discharged on Seroquel 400 mg po HS, Effexor 75 mg po daily and Ambien 10 mg po HS. Reports non-compliance with [facility] care and medications. Requests to resume medications during this admission. Reports history of one SA by walking in front of traffic years ago. At present, reports feeling depressed and sleeping poorly Physical/Sexual Abuse/Trauma History: Denies history of verbal, physical or sexual abuse as well as DV relationship Additional Comment: Reports history of multiple arrests including 5 felony convictions. No parole/probation at present Mental Status Exam - Mental Status Exam Alert and Oriented to: Time, Place, Person Cognitive Function: Fair Patient Appearance: Well Groomed Mood: Depressed Affect: Appropriate Patient Behavior: Cooperative Speech Pattern: Clear Voice Loudness: Normal Thought Process: Intact, Goal Oriented Thought Disorder: Not Present Hallucinations: Denies Suicidal Ideation: Denies Homicidal Ideation: Denies Insight/Judgement: Poor Sleep: Poorly Appetite: Fair Muscle strength/Tone: Normal Gait/Station: Normal Psychiatric Findings - Problem List ([place] 1, 2,3) (1) Bipolar disorder Current Visit: No Status: Chronic Qualifiers: Current episode severity: unspecified Comment: History.Non compliant with medications. (2) Substance induced mood disorder Current Visit: No Status: Acute (3) Substance-induced sleep disorder Current Visit: Yes Status: Acute (4) Alcohol dependence with uncomplicated withdrawal Current Visit: Yes Status: Chronic (5) Opioid dependence with withdrawal Current Visit: Yes Status: Chronic (6) Cocaine dependence, uncomplicated Current Visit: Yes Status: Chronic (7) Cannabis dependence, uncomplicated Current Visit: Yes Status: Chronic (8) Nicotine dependence Current Visit: Yes Status: Chronic Qualifiers: Nicotine product type: cigarettes Substance use status: in withdrawal Qualified Code(s): F17.213 - Nicotine dependence, cigarettes, with withdrawal; F17.213 - Nicotine dependence, cigarettes, with withdrawal (9) Back pain, chronic Current Visit: Yes Status: Chronic Qualifiers: Back pain location: low back pain Back pain laterality: unspecified Sciatica presence: without sciatica Qualified Code(s): M54.5 - Low back pain; M54.5 - Low back pain; G89.29 - Other chronic pain; G89.29 - Other chronic pain (10) Hypertension Current Visit: Yes Status: Chronic Qualifiers: Hypertension type: essential hypertension Qualified Code(s): I10 - Essential (primary) hypertension; I10 - Essential (primary) hypertension; I10 - Essential (primary) hypertension - Initial Treatment Plan Initial Treatment Plan: 1) Start Seroquel 100 mg po HS, Effexor 75 mg po daily and Ambien 10 mg po HS prn for insomnia. 2) Continue inpatient detoxfication
[2017-05-15] MEDS ORDERED: VENLAFAXINE HCL 75 MG TABLET PO SCH (13:00)
--- NOTE | 2017-05-15 14:38 | PN ---
[facility] CIWA - CIWA Score Nausea/Vomitin-No Nausea/No Vomiting Muscle Tremors: 3 Anxiety: 4-Mod. Anxious/Guarded Agitation: 3 Paroxysmal Sweats: 3 Orientation: 0-Oriented Tacttile Disturbances: 0-None Auditory Disturbances: 0-None Visual Disturbances: 0-None Headache: 0-None Present CIWA-Ar Total Score: 13 BHS COWS - Scale Resting Pulse: 0= [place] 80 or Below Sweatin=Flushed/Facial Moisture Restless Observation: 1= Difficult to Sit Still Pupil Size: 0= Normal to Room Light Bone or Joint Aches: 1= Mild Discomfort Runny Nose/ Eye Tearin= Runny Nose/Eyes GI Upset > 30mins: 2= Nausea/Diarrhea Tremor Observation of Outstretched Hands: 2= Slight Tremor Visible Yawning Observation: 1= 1-2x During Session Anxiety or Irritability: 4=Extreme Anxiety Goose Flesh Skin: 0=Smooth Skin COWS Score: 15 S Progress Note (SOAP) Subjective: Anxiety,tremors,sweating,interrupted sleep,restless. Objective: 05/15/17 14:38 Vital Signs - 8 hr 05/15/17 10:00 Temperature 96.8 F L Pulse Rate 54 L Respiratory 18 Rate Blood Pressure 107/61 Laboratory Tests 05/14/17 05/15/17 05/15/17 21:54 07:20 07:20 WBC 6.0 RBC 3.99 L Hgb 12.6 D Hct 37.7 MCV 94.5 MCH 31.5 MCHC 33.4 RDW 13.5 Plt Count 180 MPV 8.5 D Sodium 145 Potassium 3.7 Chloride 105 Carbon Dioxide 31 Anion Gap 9 BUN 15 Creatinine 1.0 Creat Clearance w eGFR > 60 Random Glucose 101 Calcium 8.1 L Total Bilirubin 0.3 D AST 15 ALT 22 Alkaline Phosphatase 62 Total Protein 5.8 L Albumin 3.1 L Urine Color Yellow Urine Appearance Clear Urine pH 5.0 Ur Specific [place] 1.015 Urine Protein Negative Urine Glucose (UA) Negative Urine Ketones Trace H Urine Blood Negative Urine Nitrite Negative Urine Bilirubin Negative Urine Urobilinogen 4.0 e.u/dl Ur Leukocyte Esterase Negative RPR Titer 05/15/17 07:20 WBC RBC Hgb Hct MCV MCH MCHC RDW Plt Count MPV Sodium Potassium Chloride Carbon Dioxide Anion Gap BUN Creatinine Creat Clearance w eGFR Random Glucose Calcium Total Bilirubin AST ALT Alkaline Phosphatase Total Protein Albumin Urine Color Urine Appearance Urine pH Ur Specific [place] Urine Protein Urine Glucose (UA) Urine Ketones Urine Blood Urine Nitrite Urine Bilirubin Urine Urobilinogen Ur Leukocyte Esterase RPR Titer Nonreactive labs noted Assessment: 05/15/17 14:39 Withdrawal sx. Plan: Continue detox
[2017-05-15] MEDS ORDERED: VENLAFAXINE HCL 37.5 MG TABLET PO SCH (14:58)
[2017-05-15] MEDS: VENLAFAXINE HCL 37.5 MG TABLET PO SCH (15:30)
[2017-05-15] MEDS: QUEtiapine FUMARATE 100 MG TABLET (FP) PO SCH (22:32)
[2017-05-15] MEDS: ZOLPIDEM TARTRATE 10 MG TABLET (PARK CARE ONLY) PO PRN (22:32)
[2017-05-15] MEDS: THIAMINE HCL 100 MG TABLET (FP) PO SCH (22:32)
[2017-05-16] MEDS: chlordiazePOXIDE HCL 25 MG CAPSULE PO SCH ×2 (06:09→11:58)
[2017-05-16] MEDS: METHADONE HCL 5 MG TABLET (FOR DETOX USE ONLY) PO SCH (10:23)
[2017-05-16] MEDS: LISINOPRIL 10 MG TABLET (FP) PO SCH ×2 (10:24→22:38)
[2017-05-16] MEDS: PRENATAL VITAMINS W/ FOLIC ACID TABLET (FP) PO SCH (10:24)
[2017-05-16] MEDS: NICOTINE 21 MG/24 HOURS TOPICAL PATCH TD SCH (10:24)
[2017-05-16] MEDS: VENLAFAXINE HCL 37.5 MG TABLET PO SCH (10:24)
[2017-05-16] MEDS: NICOTINE POLACRILEX 4 MG GUM BUC PRN (10:27)
--- NOTE | 2017-05-16 11:30 | PN ---
[facility] CIWA - CIWA Score Nausea/Vomitin-No Nausea/No Vomiting Muscle Tremors: 4-Moderate,w/Arms Extend Anxiety: 3 Agitation: 3 Paroxysmal Sweats: 2 Orientation: 0-Oriented Tacttile Disturbances: 0-None Auditory Disturbances: 0-None Visual Disturbances: 0-None Headache: 0-None Present CIWA-Ar Total Score: 12 BHS COWS - Scale Resting Pulse: 0= [place] 80 or Below Sweatin=Flushed/Facial Moisture Restless Observation: 1= Difficult to Sit Still Pupil Size: 0= Normal to Room Light Bone or Joint Aches: 1= Mild Discomfort Runny Nose/ Eye Tearin= Runny Nose/Eyes GI Upset > 30mins: 0= None Tremor Observation of Outstretched Hands: 2= Slight Tremor Visible Yawning Observation: 1= 1-2x During Session Anxiety or Irritability: 2=Irritable/Anxious Goose Flesh Skin: 0=Smooth Skin COWS Score: 11 [facility] Progress Note (SOAP) Subjective: irritable agitation anxiety sweats interrupted sleep Objective: 05/16/17 11:29 Vital Signs Temperature 98.1 F 05/16/17 10:33 Pulse Rate 58 L 05/16/17 10:33 Respiratory Rate 18 05/16/17 10:33 Blood Pressure 146/78 05/16/17 10:33 O2 Sat by Pulse Oximetry (%) Laboratory Tests 05/14/17 05/15/17 05/15/17 21:54 07:20 07:20 WBC 6.0 RBC 3.99 L Hgb 12.6 D Hct 37.7 MCV 94.5 MCH 31.5 MCHC 33.4 RDW 13.5 Plt Count 180 MPV 8.5 D Sodium 145 Potassium 3.7 Chloride 105 Carbon Dioxide 31 Anion Gap 9 BUN 15 Creatinine 1.0 Creat Clearance w eGFR > 60 Random Glucose 101 Calcium 8.1 L Total Bilirubin 0.3 D AST 15 ALT 22 Alkaline Phosphatase 62 Total Protein 5.8 L Albumin 3.1 L Urine Color Yellow Urine Appearance Clear Urine pH 5.0 Ur Specific [place] 1.015 Urine Protein Negative Urine Glucose (UA) Negative Urine Ketones Trace H Urine Blood Negative Urine Nitrite Negative Urine Bilirubin Negative Urine Urobilinogen 4.0 e.u/dl Ur Leukocyte Esterase Negative RPR Titer 05/15/17 07:20 WBC RBC Hgb Hct MCV MCH MCHC RDW Plt Count MPV Sodium Potassium Chloride Carbon Dioxide Anion Gap BUN Creatinine Creat Clearance w eGFR Random Glucose Calcium Total Bilirubin AST ALT Alkaline Phosphatase Total Protein Albumin Urine Color Urine Appearance Urine pH Ur Specific [place] Urine Protein Urine Glucose (UA) Urine Ketones Urine Blood Urine Nitrite Urine Bilirubin Urine Urobilinogen Ur Leukocyte Esterase RPR Titer Nonreactive aaox3 ambulating no acute distress Assessment: 05/16/17 11:30 withdrawal sx Plan: continue detox increase fluids
[2017-05-16] MEDS: chlordiazePOXIDE 5 MG CAPSULE PO SCH ×2 (21:42→22:38)
[2017-05-16] MEDS: QUEtiapine FUMARATE 100 MG TABLET (FP) PO SCH (22:38)
[2017-05-16] MEDS: THIAMINE HCL 100 MG TABLET (FP) PO SCH (22:38)
[2017-05-16] MEDS: ZOLPIDEM TARTRATE 10 MG TABLET (PARK CARE ONLY) PO PRN (22:38)
[2017-05-17] MEDS: chlordiazePOXIDE 5 MG CAPSULE PO SCH ×2 (06:37→10:10)
--- NOTE | 2017-05-17 07:44 | EKG ---
Test Reason : Blood Pressure : / mmHG Vent. Rate : 065 BPM Atrial Rate : 065 BPM P-R Int : 136 ms QRS Dur : 088 ms QT Int : 408 ms P-R-T Axes : 075 073 043 degrees QTc Int : 424 ms NORMAL SINUS RHYTHM POSSIBLE LEFT ATRIAL ENLARGEMENT BORDERLINE ECG WHEN COMPARED WITH ECG OF 28-FEB-2017 15:52, NO SIGNIFICANT CHANGE WAS FOUND Confirmed by CHIARA MERCEDES MD ([id number]) on 05/17/2017 7:43:52 AM Referred By: Confirmed By:CHIARA MERCEDES MD
[2017-05-17] MEDS: PRENATAL VITAMINS W/ FOLIC ACID TABLET (FP) PO SCH (10:09)
[2017-05-17] MEDS: NICOTINE 21 MG/24 HOURS TOPICAL PATCH TD SCH (10:10)
[2017-05-17] MEDS: VENLAFAXINE HCL 37.5 MG TABLET PO SCH (10:10)
[2017-05-17] MEDS: METHADONE HCL 5 MG TABLET (FOR DETOX USE ONLY) PO SCH (10:10)
[2017-05-17] MEDS: LISINOPRIL 10 MG TABLET (FP) PO SCH ×2 (10:10→22:17)
[2017-05-17] MEDS: NICOTINE POLACRILEX 4 MG GUM BUC PRN (10:15)
[2017-05-17] MEDS ORDERED: ONDANSETRON *ODT* 4 MG TABLET SL PRN (10:30)
--- NOTE | 2017-05-17 10:32 | PN ---
[facility] Progress Note (SOAP) Subjective: irritable sweats nausea interrupted sleep Objective: 05/17/17 10:31 Vital Signs Temperature 97.9 F 05/17/17 09:23 Pulse Rate 62 05/17/17 09:23 Respiratory Rate 18 05/17/17 09:23 Blood Pressure 129/79 05/17/17 09:23 O2 Sat by Pulse Oximetry (%) aaox3 ambulating no acute distress Assessment: 05/17/17 10:31 withdrawal sx Plan: continue detox increase fluids felicia marshall prn
[2017-05-17] MEDS: MAG HYDROX/AL HYDROX/SIMETH 30 ML UNIT-DOSE CUP PO PRN (16:04)
[2017-05-17] MEDS: chlordiazePOXIDE HCL 10 MG CAPSULE PO SCH ×2 (17:33→22:16)
[2017-05-17] MEDS: ZOLPIDEM TARTRATE 10 MG TABLET (PARK CARE ONLY) PO PRN (22:16)
[2017-05-17] MEDS: THIAMINE HCL 100 MG TABLET (FP) PO SCH (22:16)
[2017-05-17] MEDS: QUEtiapine FUMARATE 100 MG TABLET (FP) PO SCH (22:17)
[2017-05-17] MEDS: RANITIDINE HCL 150 MG TABLET (FP) PO SCH (22:17)
[2017-05-18] MEDS: chlordiazePOXIDE HCL 10 MG CAPSULE PO SCH ×2 (07:43→10:11)
--- NOTE | 2017-05-18 09:17 | PN ---
BHS Progress Note (SOAP) Subjective: feeling better sweats Objective: 05/18/17 09:16 Vital Signs Temperature 98.1 F 05/18/17 07:51 Pulse Rate 58 L 05/18/17 07:51 Respiratory Rate 18 05/18/17 07:51 Blood Pressure 133/77 05/18/17 07:51 O2 Sat by Pulse Oximetry (%) aaox3 ambulating no acute distress Assessment: 05/18/17 09:17 withdrawal sx Plan: continue detox increase fluids d/c in am
[2017-05-18] MEDS ORDERED: METHADONE HCL 10 MG TABLET (FOR DETOX USE ONLY) PO SCH (10:00)
[2017-05-18] MEDS: NICOTINE 21 MG/24 HOURS TOPICAL PATCH TD SCH (10:11)
[2017-05-18] MEDS: PRENATAL VITAMINS W/ FOLIC ACID TABLET (FP) PO SCH (10:11)
[2017-05-18] MEDS: LISINOPRIL 10 MG TABLET (FP) PO SCH ×2 (10:13→22:21)
[2017-05-18] MEDS: RANITIDINE HCL 150 MG TABLET (FP) PO SCH ×2 (10:13→22:21)
[2017-05-18] MEDS: VENLAFAXINE HCL 37.5 MG TABLET PO SCH (10:14)
[2017-05-18] MEDS: ZOLPIDEM TARTRATE 10 MG TABLET (PARK CARE ONLY) PO PRN (22:21)
[2017-05-18] MEDS: THIAMINE HCL 100 MG TABLET (FP) PO SCH (22:21)
[2017-05-18] MEDS: QUEtiapine FUMARATE 100 MG TABLET (FP) PO SCH (22:21)
[2017-05-19] MEDS ORDERED: METHADONE HCL 5 MG TABLET (FOR DETOX USE ONLY) PO SCH (06:00)
--- NOTE | 2017-05-19 08:31 | DS ---
[facility] Detox Discharge Summary Admission Date: 05/14/17 Discharge Date: 05/19/17 - History Present History: Alcohol Dependence, Cannabis Dependence, Cocaine Dependence - Physical Exam Results Vital Signs: Vital Signs Temperature 97.2 F L 05/19/17 06:00 Pulse Rate 58 L 05/19/17 06:00 Respiratory Rate 18 05/19/17 06:00 Blood Pressure 133/63 05/19/17 06:00 O2 Sat by Pulse Oximetry (%) - Treatment Hospital Course: Detox Protocol Followed, Detoxed Safely, Responded well, Discharged Condition Good, Rehab Referral Accepted - Medication Discharge Medications: Ambulatory Orders Quetiapine Fumarate [Seroquel -] 400 mg PO HS 11/28/16 Zolpidem Tartrate [Ambien] 10 mg PO HS 11/28/16 Venlafaxine HCl [Effexor -] 25 mg PO DAILY #30 tab 11/29/16 Lisinopril [Prinivil] 10 mg PO BID #60 tablet 03/04/17 Pantoprazole Sodium [Protonix -] 40 mg PO DAILY #30 mg 03/04/17 Quetiapine Fumarate [Seroquel] 100 mg PO HS #30 tablet 05/15/17 Venlafaxine HCl ER [Effexor Xr -] 75 mg PO DAILY #30 cap.er.24h 05/15/17 - Diagnosis (1) Nicotine dependence Current Visit: Yes Status: Chronic Qualifiers: Nicotine product type: cigarettes Substance use status: uncomplicated Qualified Code(s): F17.210 - Nicotine dependence, cigarettes, uncomplicated (2) Alcohol dependence with uncomplicated withdrawal Current Visit: Yes Status: Chronic (3) Opioid dependence with withdrawal Current Visit: Yes Status: Chronic (4) Cannabis dependence, uncomplicated Current Visit: Yes Status: Chronic (5) Cocaine dependence, uncomplicated Current Visit: Yes Status: Chronic (6) History of depression Current Visit: No Status: Chronic (7) Hypertension Current Visit: Yes Status: Chronic Qualifiers: Hypertension type: essential hypertension Qualified Code(s): I10 - Essential (primary) hypertension (8) History of bipolar disorder Current Visit: No Status: Chronic (9) Bipolar disorder Current Visit: No Status: Chronic Qualifiers: Current episode severity: unspecified (10) Substance induced mood disorder Current Visit: No Status: Acute (11) Insomnia Current Visit: No Status: Acute (12) Back pain, chronic Current Visit: Yes Status: Chronic Qualifiers: Back pain location: low back pain Back pain laterality: unspecified Sciatica presence: without sciatica Qualified Code(s): M54.5 - Low back pain (13) Substance-induced sleep disorder Current Visit: Yes Status: Chronic - AMA Did Patient Leave Against Medical Advice: No
[2017-05-19] MEDS: NICOTINE 21 MG/24 HOURS TOPICAL PATCH TD SCH (09:58)
[2017-05-19] MEDS: PRENATAL VITAMINS W/ FOLIC ACID TABLET (FP) PO SCH (09:58)
[2017-05-19] MEDS: VENLAFAXINE HCL 37.5 MG TABLET PO SCH (09:58)
[2017-05-19] MEDS: LISINOPRIL 10 MG TABLET (FP) PO SCH (09:58)
[2017-05-19] MEDS: RANITIDINE HCL 150 MG TABLET (FP) PO SCH (09:58)
[2017-05-19 10:39] VITALS: BP 139/84; PULSE 69; TEMP 98.1
[2017-05-19] MEDS ORDERED: FLU VACCINE QUAD 60 MCG/0.5 ML (MDV 17-18) IM ONE ×2 (11:00→12:00)
== END 2017-05-19 11:16 | disposition home or self-care (01) | DRG 773 ==
LOC: YASAS 11:26 → Y6N 16:04
PROVIDERS: ADMIT Internal Medicine; ATTEND Internal Medicine
PROC: HZ2ZZZZ Detoxification Services for Substance Abuse Treatment (ICD-10-PCS; principal; 2017-05-14)
DX: F11.20 Opioid dependence, uncomplicated (principal); F10.20 Alcohol dependence, uncomplicated; F14.20 Cocaine dependence, uncomplicated; F12.20 Cannabis dependence, uncomplicated; F17.210 Nicotine dependence, cigarettes, uncomplicated; F31.9 Bipolar disorder, unspecified; F19.24 Other psychoactive substance dependence with psychoactive substance-induced mood disorder; F19.282 Other psychoactive substance dependence with psychoactive substance-induced sleep disorder; F32.9 Major depressive disorder, single episode, unspecified; R01.1 Cardiac murmur, unspecified; I10 Essential (primary) hypertension; G47.00 Insomnia, unspecified; M54.5 Low back pain; G89.29 Other chronic pain; Z91.5 Personal history of self-harm
CPT/HCPCS: 36415; 80053; 81003; 85027; 86593; 90688; 93005; 93010; G0008

== ENCOUNTER 2017-07-01 14:54 | Inpatient (IN) | payer OTHER ==
[2017-07-01 16:53] VITALS: BMI 24.3
--- NOTE | 2017-07-01 18:45 | HP ---
COWS - Scale Resting Pulse: 0= IN 80 or Below Sweatin= Chills/Flushing Restless Observation: 1= Difficult to Sit Still Pupil Size: 1= Pupils >than Normal Bone or Joint Aches: 2= Severe Diffuse Aches Runny Nose/ Eye Tearin= Runny Nose/Eyes GI Upset > 30mins: 1= Stomach Cramp Tremor Observation: 1= Tremor Flomot, Not Seen Yawning Observation: 1= 1-2x During Session Anxiety or Irritability: 1=Feels Anxious/Irritable Goose Flesh Skin: 3=Piloerection COWS Score: 14 CIWA Score - CIWA Score Nausea/Vomitin-Mild Nausea/No Vomiting Muscle Tremors: 2 Anxiety: 2 Agitation: 2 Paroxysmal Sweats: 2 Orientation: 1-Uncertain about Date Tacttile Disturbances: 2-Mild Itch/Numbness/Burn Auditory Disturbances: 1-Very Mild Visual Disturbances: 1-Very Mild Sensitivity Headache: 1-Very Mild CIWA-Ar Total Score: 15 Admission ROS S - HPI Chief Complaint: WITHDRAWAL SYMPTOMS Allergies/Adverse Reactions: Allergies Allergy/AdvReac Type Severity Reaction Status Date / Time No Known Allergies Allergy Verified 07/01/17 17:42 History of Present Illness: 52 Y.O. MAN WITH AN EXTENSIVE HISTORY OF OPIATES, COCAINE AND ALCOHOL DEPENDENCE IS HERE SEEKING DETOX. SINCE NOV, 2016 HE HAS HAD MULTIPLE ADMISSIONS HERE. HE REPORTS HAVING A 16 YEAR HISTORY OF BEING CLEAN AND SOBER BUT REPORTS RELAPSING 1 YEAR AGO. - Ebola screening Have you traveled outside of the country in the last 21 days: No (N) Have you had contact with anyone from an Ebola affected area: No Have you been sick,other than usual withdrawal symptoms: No Do you have a fever: No - Review of Systems Constitutional: Chills, Loss of Appetite, Changes in sleep, Unintentional Wgt. Loss EENT: reports: Tearing, Nose Congestion Respiratory: reports: Cough, Shortness of Breath Cardiac: reports: No Symptoms Reported GI: reports: Poor Appetite : reports: No Symptoms Reported Musculoskeletal: reports: Back Pain, Joint Pain Integumentary: reports: No Symptoms Reported Neuro: reports: Headache Endocrine: reports: No Symptoms Reported Hematology: reports: No Symptoms Reported Psychiatric: reports: Judgement Intact, Mood/Affect Appropiate, Orientated x3, other (BIPOLAR) Other Systems: Reviewed and Negative Patient History - Patient Medical History Hx Anemia: No Hx Asthma: No Hx Chronic Obstructive Pulmonary Disease (COPD): No Hx Cancer: No Hx Cardiac Disorders: No Hx Congestive Heart Failure: No Hx Hypertension: Yes Hx Hypercholesterolemia: No Hx Pacemaker: No HX Cerebrovascular Accident: No Hx Seizures: No Hx Dementia: No Hx Diabetes: No Hx Gastrointestinal Disorders: Yes (acid reflux) Hx Liver Disease: No Hx Genitourinary Disorders: No Hx Sexually Transmitted Disorders: No Hx Renal Disease (ESRD): No Hx Thyroid Disease: No Hx Human Immunodeficiency Virus (HIV): No Hx Hepatitis C: No Hx Depression: Yes Hx Suicide Attempt: No Hx Bipolar Disorder: Yes (Takes med.) Hx Schizophrenia: No - Patient Surgical History Past Surgical History: No Hx Neurologic Surgery: No Hx Cataract Extraction: No Hx Cardiac Surgery: No Hx Lung Surgery: No Hx Breast Surgery: No Hx Breast Biopsy: No Hx Abdominal Surgery: No Hx Appendectomy: No Hx Cholecystectomy: No Hx Genitourinary Surgery: No Hx Section: No Hx Orthopedic Surgery: No Anesthesia Reaction: No - PPD History Previous Implant?: Yes Documented Results: Negative w/proof Implanted On Prior R Admission?: Yes Date: 11/30/16 Results: 0 mm PPD to be Administered?: No - Reproductive History Patient is a Female of Child Bearing Age (11 -55 yrs old): No - Smoking Cessation Smoking history: Current every day smoker Have you smoked in the past 12 months: Yes Aproximately how many cigarettes per day: 20 Cigars Per Day: 0 Hx Chewing Tobacco Use: No Initiated information on smoking cessation: Yes 'Breaking Loose' booklet given: 07/01/17 - Substance & Tx. History Hx Alcohol Use: Yes Hx Substance Use: Yes Substance Use Type: Alcohol, Cocaine, Heroin Hx Substance Use Treatment: Yes (DETOX: 05/2017) - Substances Abused Heroin Route: Inhalation Frequency: Daily Amount used: 2-3 bags Age of first use: 40 Date of Last Use: 07/01/17 Cocaine Route: Inhalation Frequency: 3-6 times per week Amount used: $100 Age of first use: 14 Date of Last Use: 07/01/17 Alcohol-beer/rum/vodla Route: Oral Frequency: 3-6 times per week Amount used: 1-6 pk./2-3 pts. Age of first use: 18 Date of Last Use: 07/01/17 Percocet Route: Oral Frequency: 3-6 times per week Amount used: 4 tabs. (10-325 mg.) Age of first use: 49 Date of Last Use: 06/27/17 Family Disease History - Family Disease History Family Disease History: Diabetes: Father (, hx etoh/drugs), Heart Disease: Mother (living, ), Other: Father, Mother, Brother (six - healthy) Admission Physical Exam [facility] - Vital Signs Vital Signs: Vital Signs - 24 hr 07/01/17 16:47 Temperature 97.1 F L Pulse Rate 78 Respiratory 18 Rate Blood Pressure 140/70 - Physical General Appearance: Yes: Disheveled, Irritable, Sweating, Anxious HEENTM: Yes: Hearing grossly Normal, Normal ENT Inspection, Normocephalic, Normal Voice Respiratory: Yes: Chest Non-Tender, Lungs Clear, Normal Breath Sounds, No Respiratory Distress, No Accessory Muscle Use Neck: Yes: No masses,lesions,Nodules Breast: Yes: Breast Exam Deferred Cardiology: Yes: Regular Rhythm, Regular Rate Abdominal: Yes: Normal Bowel Sounds, Non Tender Genitourinary: Yes: Other (NO COMPLAINTS REPORTED) Back: Yes: Normal Inspection Musculoskeletal: Yes: full range of Motion, Gait Steady Extremities: Yes: Within Normal Limits, Normal Capillary Refill, Normal Inspection Neurological: Yes: Alert, Normal Mood/Affect, Normal Response Integumentary: Yes: Normal Color, Dry, Warm Lymphatic: Yes: Within Normal Limits - Diagnostic (1) Opioid dependence with withdrawal Current Visit: Yes Status: Chronic (2) Alcohol dependence with uncomplicated withdrawal Current Visit: Yes Status: Chronic (3) Cocaine dependence, uncomplicated Current Visit: Yes Status: Chronic (4) Hypertension Current Visit: Yes Status: Chronic Qualifiers: Hypertension type: essential hypertension Qualified Code(s): I10 - Essential (primary) hypertension (5) Nicotine dependence Current Visit: Yes Status: Chronic Qualifiers: Nicotine product type: cigarettes Substance use status: uncomplicated Qualified Code(s): F17.210 - Nicotine dependence, cigarettes, uncomplicated Cleared for Admission S - Detox or Rehab [facility] Level of Care: Medically Managed Detox Regimen/Protocol: Methadone/Librium S Breath Alcohol Content Breath Alcohol Content: 0 Urine Drug Screen - Results Drug Screen Negative: No Urine Drug Screen Results: MAURA-Cocaine, OPI-Opiates
[2017-07-01] MEDS ORDERED: MAGNESIUM CITRATE 300 ML BOTTLE PO PRN (19:00)
[2017-07-01] MEDS ORDERED: chlordiazePOXIDE HCL 25 MG CAPSULE PO PRN (19:00)
[2017-07-01] MEDS ORDERED: LOPERAMIDE HCL 2 MG CAPSULE PO PRN (19:00)
[2017-07-01] MEDS ORDERED: chlordiazePOXIDE HCL 25 MG CAPSULE PO ONE (19:00)
[2017-07-01] MEDS ORDERED: IBUPROFEN 400 MG TABLET (FP) PO PRN (19:00)
[2017-07-01] MEDS ORDERED: METHADONE HCL 10 MG TABLET (FOR DETOX USE ONLY) PO ONE ×2 (19:00→23:00)
[2017-07-01] MEDS ORDERED: MAGNESIUM HYDROX 2400MG/30ML ORAL SUSPENSION 30 ML CUP PO PRN (19:00)
[2017-07-01] MEDS ORDERED: hydrOXYzine PAMOATE 50 MG CAPSULE (FP) PO PRN (19:00)
[2017-07-01] MEDS ORDERED: guaiFENesin/D-METHORPHAN HB 10 ML UNIT-DOSE CUPS PO PRN (19:00)
[2017-07-01] MEDS ORDERED: ACETAMINOPHEN 325 MG TABLET (FP) PO PRN (19:00)
[2017-07-01] MEDS ORDERED: P-EPHED 60MG/TRIPROLIDI 2.5MG TABLET PO PRN (19:00)
[2017-07-01] MEDS ORDERED: MENTHOL/PHENOL 1 EACH UD MM PRN (19:00)
[2017-07-01] MEDS ORDERED: diphenhydrAMINE HCL 25 MG CAPSULE (FP) PO PRN (19:01)
[2017-07-01] MEDS: THIAMINE HCL 100 MG TABLET (FP) PO SCH (22:18)
[2017-07-01] MEDS: chlordiazePOXIDE HCL 25 MG CAPSULE PO SCH (22:19)
[2017-07-01] MEDS: NICOTINE POLACRILEX 2 MG GUM BC PRN (23:37)
[2017-07-02 02:33] LABS: URINE APPEARANCE CLEAR; URINE BILIRUBIN NEGATIVE (NEGATIVE); URINE BLOOD NEGATIVE (NEGATIVE); URINE COLOR YELLOW; URINE GLUCOSE (UA) NEGATIVE (NEGATIVE); URINE KETONE TRACE (NEGATIVE); URINE LEUK ESTERASE NEGATIVE (NEGATIVE); URINE NITRITE NEGATIVE (NEGATIVE); URINE PROTEIN NEGATIVE (NEGATIVE)
[2017-07-02] MEDS: chlordiazePOXIDE HCL 25 MG CAPSULE PO SCH ×5 (05:43→22:09)
[2017-07-02] MEDS ORDERED: METHADONE HCL 10 MG TABLET (FOR DETOX USE ONLY) PO SCH (10:00)
[2017-07-02 10:19] LABS: MCH 31.5 pg (25.7-33.7); MCHC 32.8 g/dl (32.0-35.9); MEAN CELL VOLUME 95.9 fl (80-96); PLATELET COUNT 196 K/MM3 (134-434); RDW 13.4 % (11.9-15.9)
--- NOTE | 2017-07-02 10:24 | CONSULT ---
[facility] Psychiatric Consult - Data Date of interview: 07/02/17 Admission source: [facility] Identifying data: This is one of multiple admissions to [facility] for this 52 y/ o AA male seeking detox treatment on for heroin,cocaine and alcohol dependence.Patient is single without children,domiciled (lives with common-law ),unemployed and supported by friends/relatives. Substance Abuse History: Discussed in this session.Patient confirms active use of alcohol,cocaine and opiates as detailed in current [facility] report.Details as follows : Smoking history: Current every day smoker. Have you smoked in the past 12 months: Yes. Aproximately how many cigarettes per day: 20. Cigars Per Day: 0. Hx Chewing Tobacco Use: No. Initiated information on smoking cessation : Yes. 'Breaking Loose' booklet given: 07/01/17. - Substance & Tx. History. Hx Alcohol Use: Yes. Hx Substance Use: Yes. Substance Use Type: Alcohol, Cocaine, Heroin. Hx Substance Use Treatment: Yes (DETOX: 05/2017). - Substances Abused. Heroin. Route: Inhalation. Frequency: Daily. Amount used: 2-3 bags. Age of first use: 40. Date of Last Use: 07/01/17. Cocaine. Route: Inhalation. Frequency: 3-6 times per week. Amount used: $ 100. Age of first use: 14. Date of Last Use: 07/01/17. Alcohol-beer/rum/ vodla. Route: Oral. Frequency: 3-6 times per week. Amount used: 1-6 pk./2-3 pts. Age of first use: 18. Date of Last Use: 07/01/17. Percocet. Route: Oral. Frequency: 3-6 times per week. Amount used: 4 tabs. (10-325 mg.). Age of first use: 49. Date of Last Use: 06/27/17 Medical History: GERD,lower back pain and hypertension. Psychiatric History: Diagnosed with Bipolar Disorder (1992).Patient admits to a history of multiple psychiatric hospitalizations ([facility] and [facility]).Mr Lomeli reports that he has been prescribed seroquel 400 mg/hs + effexor (dose not recalled) but he has not seen his psychiatrist ([facility]) for several months.No recall of date of last medication intake." It has been a while ",according to the patient.Confirmed history of suicide attempt by jumping onto the path of oncoming traffic (years ago). Physical/Sexual Abuse/Trauma History: Patient denies. Additional Comment: Urine Drug Screen Results: MAURA-Cocaine, OPI-Opiates.Noted. Mental Status Exam - Mental Status Exam Alert and Oriented to: Time, Place, Person Cognitive Function: Good Patient Appearance: Unkempt, Disheveled Mood: Nervous, Anxious Affect: Mood Congruent, Constricted Patient Behavior: Fatigued, Cooperative Speech Pattern: Clear, Appropriate Voice Loudness: Normal Thought Process: Goal Oriented Thought Disorder: Not Present Hallucinations: Denies Suicidal Ideation: Denies Homicidal Ideation: Denies Insight/Judgement: Poor Sleep: Poorly, Difficulty falling asleep Appetite: Good Muscle strength/Tone: Normal Gait/Station: Normal Psychiatric Findings - Problem List ([place] 1, 2,3) (1) Alcohol dependence with uncomplicated withdrawal Current Visit: Yes Status: Acute (2) Cocaine dependence, uncomplicated Current Visit: Yes Status: Acute (3) Opioid dependence with withdrawal Current Visit: Yes Status: Acute (4) Nicotine dependence Current Visit: Yes Status: Acute Qualifiers: Nicotine product type: cigarettes Substance use status: uncomplicated Qualified Code(s): F17.210 - Nicotine dependence, cigarettes, uncomplicated (5) Substance induced mood disorder Current Visit: Yes Status: Acute (6) History of bipolar disorder Current Visit: Yes Status: Acute Comment: Self-report.Total non-adherence to medications and OPD care.Patient has been lost to follow up for months. (7) Insomnia Current Visit: Yes Status: Acute - Initial Treatment Plan Initial Treatment Plan: Previous records are reviewed (noted recent admission to [facility] - 05/15/17 to 05/19/17 ; patient did not follow with aftercare recommendations).Psychoeducation.Sleep hygiene.Detoxification.Patient agrees to resume ONLY seroquel but " at a low dose " to address insomnia (fearful of oversedation).Seroquel 100 mg po hs.Side effects/benefits are discussed with the patient.Mr Lomeli expresses his agreement with this careplan.Observation.
[2017-07-02] MEDS: PRENATAL VITAMINS W/ FOLIC ACID TABLET (FP) PO SCH (10:31)
[2017-07-02] MEDS: LISINOPRIL 10 MG TABLET (FP) PO SCH (10:31)
[2017-07-02] MEDS: PANTOPRAZOLE 40 MG TABLET (FP) PO SCH (10:31)
[2017-07-02] MEDS: NICOTINE POLACRILEX 2 MG GUM BC PRN ×3 (10:31→15:05)
[2017-07-02] MEDS: NICOTINE 21 MG/24 HOURS TOPICAL PATCH TD SCH (10:31)
[2017-07-02 10:43] LABS: ALBUMIN 3.5 g/dl (3.4-5.0); ANION GAP 6 (8-16); CALCIUM 8.5 mg/dL (8.5-10.1); CO2 30 mmol/L (21-32); GLUCOSE,RANDOM 100 mg/dL (74-106); SGOT/AST 17 U/L (15-37); SGPT/ALT 28 U/L (12-78)
[2017-07-02 10:44] LABS: ALK PHOS 91 U/L (45-117); BILIRUBIN,TOTAL 0.6 mg/dL (0.2-1.0); TOT PROT 6.5 g/dl (6.4-8.2)
[2017-07-02 12:09] LABS: HIV 1 & 2 AB NEGATIVE; HIV 1 AGp24 NEGATIVE
[2017-07-02 12:11] LABS: URINE LEUK ESTERASE Negative (NEGATIVE)
[2017-07-02] MEDS: ONDANSETRON *ODT* 4 MG TABLET SL PRN (15:06)
[2017-07-02] MEDS: MAG HYDROX/AL HYDROX/SIMETH 30 ML UNIT-DOSE CUP PO PRN (15:42)
--- NOTE | 2017-07-02 16:24 | PN ---
[facility] CIWA - CIWA Score Nausea/Vomitin Muscle Tremors: 4-Moderate,w/Arms Extend Anxiety: 2 Agitation: 2 Paroxysmal Sweats: 3 Orientation: 0-Oriented Tacttile Disturbances: 2-Mild Itch/Numbness/Burn Auditory Disturbances: 0-None Visual Disturbances: 2-Mild Sensitivity Headache: 0-None Present CIWA-Ar Total Score: 18 S COWS - Scale Resting Pulse: 0= [place] 80 or Below Sweatin= Chills/Flushing Restless Observation: 1= Difficult to Sit Still Pupil Size: 0= Normal to Room Light Bone or Joint Aches: 2= Severe Diffuse Aches Runny Nose/ Eye Tearin= None GI Upset > 30mins: 1= Stomach Cramp Tremor Observation of Outstretched Hands: 2= Slight Tremor Visible Yawning Observation: 2= >3x During Session Anxiety or Irritability: 2=Irritable/Anxious Goose Flesh Skin: 3=Piloerection COWS Score: 14 [facility] Progress Note (SOAP) Subjective: Tremors, Sweating, Body Aches, Nausea, Diarrhea, Stomach Cramping. Objective: PT. A & O X 3, OBSERVED AMBULATING ON UNIT. NO ACUTE DISTRESS. 07/02/17 16:22 Vital Signs Temperature 96.1 F L 07/02/17 06:00 Pulse Rate 71 07/02/17 06:00 Respiratory Rate 18 07/02/17 06:00 Blood Pressure 113/61 07/02/17 06:00 O2 Sat by Pulse Oximetry (%) Laboratory Tests 07/01/17 07/02/17 07/02/17 20:35 06:00 07:50 WBC 8.0 D RBC 4.25 Hgb 13.4 Hct 40.7 MCV 95.9 MCH 31.5 MCHC 32.8 RDW 13.4 Plt Count 196 MPV 9.0 Sodium Potassium Chloride Carbon Dioxide Anion Gap BUN Creatinine Creat Clearance w eGFR Random Glucose Calcium Total Bilirubin AST ALT Alkaline Phosphatase Total Protein Albumin Urine Color Yellow Urine Appearance Clear Urine pH 5.0 Ur Specific [place] 1.016 Urine Protein Negative Urine Glucose (UA) Negative Urine Ketones Trace H Urine Blood Negative Urine Nitrite Negative Urine Bilirubin Negative Urine Urobilinogen 2.0 Ur Leukocyte Esterase Negative RPR Titer HIV 1&2 Antibody Screen Negative HIV P24 Antigen Negative 07/02/17 07/02/17 07:50 07:50 WBC RBC Hgb Hct MCV MCH MCHC RDW Plt Count MPV Sodium 138 Potassium 4.3 Chloride 102 Carbon Dioxide 30 Anion Gap 6 L BUN 16 Creatinine 1.0 Creat Clearance w eGFR > 60 Random Glucose 100 Calcium 8.5 Total Bilirubin 0.6 D AST 17 ALT 28 D Alkaline Phosphatase 91 D Total Protein 6.5 Albumin 3.5 Urine Color Urine Appearance Urine pH Ur Specific [place] Urine Protein Urine Glucose (UA) Urine Ketones Urine Blood Urine Nitrite Urine Bilirubin Urine Urobilinogen Ur Leukocyte Esterase RPR Titer Nonreactive HIV 1&2 Antibody Screen HIV P24 Antigen LABS NOTED. Assessment: 07/02/17 16:22 WITHDRAWAL SYMPTOMS. Plan: CONTINUE DETOX. PRN ZOFRAN SL FOR NAUSEA. PRN IMMODIUM FOR DIARRHEA. INCREASE DAILY PO FLUID INTAKE.
[2017-07-02] MEDS: THIAMINE HCL 100 MG TABLET (FP) PO SCH (22:09)
[2017-07-02] MEDS: QUEtiapine FUMARATE 100 MG TABLET (FP) PO SCH (22:09)
[2017-07-03] MEDS: chlordiazePOXIDE HCL 25 MG CAPSULE PO SCH ×3 (06:00→16:58)
[2017-07-03] MEDS: PRENATAL VITAMINS W/ FOLIC ACID TABLET (FP) PO SCH (10:25)
[2017-07-03] MEDS: LISINOPRIL 10 MG TABLET (FP) PO SCH (10:25)
[2017-07-03] MEDS: PANTOPRAZOLE 40 MG TABLET (FP) PO SCH (10:25)
[2017-07-03] MEDS: METHADONE HCL 5 MG TABLET (FOR DETOX USE ONLY) PO SCH (10:26)
[2017-07-03] MEDS: NICOTINE 21 MG/24 HOURS TOPICAL PATCH TD SCH (10:40)
[2017-07-03] MEDS: NICOTINE POLACRILEX 2 MG GUM BC PRN (13:39)
--- NOTE | 2017-07-03 15:16 | PN ---
[facility] CIWA - CIWA Score Nausea/Vomitin-Mild Nausea/No Vomiting Muscle Tremors: 3 Anxiety: 4-Mod. Anxious/Guarded Agitation: 4-Moderately Restless Paroxysmal Sweats: 3 Orientation: 0-Oriented Tacttile Disturbances: 0-None Auditory Disturbances: 0-None Visual Disturbances: 0-None Headache: 0-None Present CIWA-Ar Total Score: 15 S COWS - Scale Resting Pulse: 0= [place] 80 or Below Sweatin= Chills/Flushing Restless Observation: 3= Extraneous Movement Pupil Size: 0= Normal to Room Light Bone or Joint Aches: 2= Severe Diffuse Aches Runny Nose/ Eye Tearin= Runny Nose/Eyes GI Upset > 30mins: 2= Nausea/Diarrhea Tremor Observation of Outstretched Hands: 2= Slight Tremor Visible Yawning Observation: 0= None Anxiety or Irritability: 2=Irritable/Anxious Goose Flesh Skin: 0=Smooth Skin COWS Score: 14 S Progress Note (SOAP) Subjective: Sweating, nausea, anxious, interrupted sleep Objective: 07/03/17 15:16 Last Vital Signs Temp Pulse Resp BP Pulse Ox 96.1 F L 73 18 109/71 07/03/17 14:26 07/03/17 14:26 07/03/17 14:26 07/03/17 14:26 Laboratory Tests 07/01/17 07/02/17 07/02/17 20:35 06:00 07:50 WBC 8.0 D RBC 4.25 Hgb 13.4 Hct 40.7 MCV 95.9 MCH 31.5 MCHC 32.8 RDW 13.4 Plt Count 196 MPV 9.0 Sodium Potassium Chloride Carbon Dioxide Anion Gap BUN Creatinine Creat Clearance w eGFR Random Glucose Calcium Total Bilirubin AST ALT Alkaline Phosphatase Total Protein Albumin Urine Color Yellow Urine Appearance Clear Urine pH 5.0 Ur Specific [place] 1.016 Urine Protein Negative Urine Glucose (UA) Negative Urine Ketones Trace H Urine Blood Negative Urine Nitrite Negative Urine Bilirubin Negative Urine Urobilinogen 2.0 Ur Leukocyte Esterase Negative RPR Titer HIV 1&2 Antibody Screen Negative HIV P24 Antigen Negative 07/02/17 07/02/17 07:50 07:50 WBC RBC Hgb Hct MCV MCH MCHC RDW Plt Count MPV Sodium 138 Potassium 4.3 Chloride 102 Carbon Dioxide 30 Anion Gap 6 L BUN 16 Creatinine 1.0 Creat Clearance w eGFR > 60 Random Glucose 100 Calcium 8.5 Total Bilirubin 0.6 D AST 17 ALT 28 D Alkaline Phosphatase 91 D Total Protein 6.5 Albumin 3.5 Urine Color Urine Appearance Urine pH Ur Specific [place] Urine Protein Urine Glucose (UA) Urine Ketones Urine Blood Urine Nitrite Urine Bilirubin Urine Urobilinogen Ur Leukocyte Esterase RPR Titer Nonreactive HIV 1&2 Antibody Screen HIV P24 Antigen Labs noted Assessment: 07/03/17 15:16 Withdrawal symptoms Plan: Continue detox
--- NOTE | 2017-07-03 17:15 | EKG ---
Test Reason : Blood Pressure : / mmHG Vent. Rate : 080 BPM Atrial Rate : 080 BPM P-R Int : 130 ms QRS Dur : 084 ms QT Int : 374 ms P-R-T Axes : 070 069 037 degrees QTc Int : 431 ms NORMAL SINUS RHYTHM NORMAL ECG WHEN COMPARED WITH ECG OF 14-MAY-2017 16:47, NO SIGNIFICANT CHANGE WAS FOUND Confirmed by MACIE PARIS MD ([id number]) on 07/03/2017 5:15:07 PM Referred By: Confirmed By:MACIE PARIS MD
[2017-07-03] MEDS: THIAMINE HCL 100 MG TABLET (FP) PO SCH (22:12)
[2017-07-03] MEDS: chlordiazePOXIDE 5 MG CAPSULE PO SCH (22:12)
[2017-07-03] MEDS: QUEtiapine FUMARATE 100 MG TABLET (FP) PO SCH (22:12)
[2017-07-04] MEDS: chlordiazePOXIDE 5 MG CAPSULE PO SCH ×3 (06:02→18:02)
[2017-07-04] MEDS: PANTOPRAZOLE 40 MG TABLET (FP) PO SCH (10:00)
[2017-07-04] MEDS: METHADONE HCL 5 MG TABLET (FOR DETOX USE ONLY) PO SCH (10:00)
[2017-07-04] MEDS: PRENATAL VITAMINS W/ FOLIC ACID TABLET (FP) PO SCH (10:00)
[2017-07-04] MEDS: LISINOPRIL 10 MG TABLET (FP) PO SCH (10:00)
[2017-07-04] MEDS: NICOTINE 21 MG/24 HOURS TOPICAL PATCH TD SCH (10:01)
--- NOTE | 2017-07-04 16:06 | PN ---
[facility] Progress Note (SOAP) Subjective: Poor appetite, vomit x once this morning, interrupted sleep, sweating Objective: 07/04/17 16:05 Last Vital Signs Temp Pulse Resp BP Pulse Ox 98.4 F 62 18 148/88 07/04/17 09:20 07/04/17 09:20 07/04/17 09:20 07/04/17 09:20 Laboratory Tests 07/01/17 07/02/17 07/02/17 20:35 06:00 07:50 WBC 8.0 D RBC 4.25 Hgb 13.4 Hct 40.7 MCV 95.9 MCH 31.5 MCHC 32.8 RDW 13.4 Plt Count 196 MPV 9.0 Sodium Potassium Chloride Carbon Dioxide Anion Gap BUN Creatinine Creat Clearance w eGFR Random Glucose Calcium Total Bilirubin AST ALT Alkaline Phosphatase Total Protein Albumin Urine Color Yellow Urine Appearance Clear Urine pH 5.0 Ur Specific [place] 1.016 Urine Protein Negative Urine Glucose (UA) Negative Urine Ketones Trace H Urine Blood Negative Urine Nitrite Negative Urine Bilirubin Negative Urine Urobilinogen 2.0 Ur Leukocyte Esterase Negative RPR Titer HIV 1&2 Antibody Screen Negative HIV P24 Antigen Negative 07/02/17 07/02/17 07:50 07:50 WBC RBC Hgb Hct MCV MCH MCHC RDW Plt Count MPV Sodium 138 Potassium 4.3 Chloride 102 Carbon Dioxide 30 Anion Gap 6 L BUN 16 Creatinine 1.0 Creat Clearance w eGFR > 60 Random Glucose 100 Calcium 8.5 Total Bilirubin 0.6 D AST 17 ALT 28 D Alkaline Phosphatase 91 D Total Protein 6.5 Albumin 3.5 Urine Color Urine Appearance Urine pH Ur Specific [place] Urine Protein Urine Glucose (UA) Urine Ketones Urine Blood Urine Nitrite Urine Bilirubin Urine Urobilinogen Ur Leukocyte Esterase RPR Titer Nonreactive HIV 1&2 Antibody Screen HIV P24 Antigen Labs noted Assessment: 07/04/17 16:05 Withdrawal symptoms Plan: Continue detox Encouraged to drink lots of water for hydration
[2017-07-04] MEDS: ONDANSETRON *ODT* 4 MG TABLET SL PRN (18:04)
[2017-07-04] MEDS: NICOTINE POLACRILEX 2 MG GUM BC PRN (18:14)
[2017-07-04] MEDS: THIAMINE HCL 100 MG TABLET (FP) PO SCH (22:09)
[2017-07-04] MEDS: QUEtiapine FUMARATE 100 MG TABLET (FP) PO SCH (22:09)
[2017-07-04] MEDS: chlordiazePOXIDE HCL 10 MG CAPSULE PO SCH (22:09)
[2017-07-04] MEDS: MAG HYDROX/AL HYDROX/SIMETH 30 ML UNIT-DOSE CUP PO PRN (22:45)
[2017-07-05] MEDS: chlordiazePOXIDE HCL 10 MG CAPSULE PO SCH ×3 (05:37→17:18)
[2017-07-05] MEDS ORDERED: METHADONE HCL 10 MG TABLET (FOR DETOX USE ONLY) PO SCH (10:00)
[2017-07-05] MEDS: PANTOPRAZOLE 40 MG TABLET (FP) PO SCH (10:01)
[2017-07-05] MEDS: NICOTINE 21 MG/24 HOURS TOPICAL PATCH TD SCH (10:01)
[2017-07-05] MEDS: PRENATAL VITAMINS W/ FOLIC ACID TABLET (FP) PO SCH (10:01)
[2017-07-05] MEDS: LISINOPRIL 10 MG TABLET (FP) PO SCH (10:01)
[2017-07-05] MEDS: MAG HYDROX/AL HYDROX/SIMETH 30 ML UNIT-DOSE CUP PO PRN (10:29)
--- NOTE | 2017-07-05 11:39 | PN ---
[facility] Progress Note (SOAP) Subjective: Tremors, Constipation, Body Aches, Nausea, Sweating. Objective: PT. A & O X 3, OBSERVED AMBULATING ON UNIT. NO ACUTE DISTRESS. 07/05/17 11:37 Vital Signs Temperature 97.9 F 07/05/17 09:11 Pulse Rate 64 07/05/17 09:11 Respiratory Rate 18 07/05/17 09:11 Blood Pressure 128/75 07/05/17 09:11 O2 Sat by Pulse Oximetry (%) Laboratory Tests 07/01/17 07/02/17 07/02/17 20:35 06:00 07:50 WBC 8.0 D RBC 4.25 Hgb 13.4 Hct 40.7 MCV 95.9 MCH 31.5 MCHC 32.8 RDW 13.4 Plt Count 196 MPV 9.0 Sodium Potassium Chloride Carbon Dioxide Anion Gap BUN Creatinine Creat Clearance w eGFR Random Glucose Calcium Total Bilirubin AST ALT Alkaline Phosphatase Total Protein Albumin Urine Color Yellow Urine Appearance Clear Urine pH 5.0 Ur Specific [place] 1.016 Urine Protein Negative Urine Glucose (UA) Negative Urine Ketones Trace H Urine Blood Negative Urine Nitrite Negative Urine Bilirubin Negative Urine Urobilinogen 2.0 Ur Leukocyte Esterase Negative RPR Titer HIV 1&2 Antibody Screen Negative HIV P24 Antigen Negative 07/02/17 07/02/17 07:50 07:50 WBC RBC Hgb Hct MCV MCH MCHC RDW Plt Count MPV Sodium 138 Potassium 4.3 Chloride 102 Carbon Dioxide 30 Anion Gap 6 L BUN 16 Creatinine 1.0 Creat Clearance w eGFR > 60 Random Glucose 100 Calcium 8.5 Total Bilirubin 0.6 D AST 17 ALT 28 D Alkaline Phosphatase 91 D Total Protein 6.5 Albumin 3.5 Urine Color Urine Appearance Urine pH Ur Specific [place] Urine Protein Urine Glucose (UA) Urine Ketones Urine Blood Urine Nitrite Urine Bilirubin Urine Urobilinogen Ur Leukocyte Esterase RPR Titer Nonreactive HIV 1&2 Antibody Screen HIV P24 Antigen LABS NOTED. Assessment: 07/05/17 11:38 WITHDRAWAL SYMPTOMS. Plan: CONTINUE DETOX.
[2017-07-05] MEDS: DOCUSATE SODIUM 100 MG CAPSULE (FP) PO SCH ×2 (13:29→22:07)
[2017-07-05] MEDS: NICOTINE POLACRILEX 2 MG GUM BC PRN ×2 (13:33→22:08)
[2017-07-05] MEDS ORDERED: BENZOCAINE 28 GM HEMORRHOIDAL OINTMENT PR ONE (19:35)
[2017-07-05] MEDS: QUEtiapine FUMARATE 100 MG TABLET (FP) PO SCH (22:07)
[2017-07-05] MEDS: THIAMINE HCL 100 MG TABLET (FP) PO SCH (22:07)
[2017-07-06] MEDS ORDERED: METHADONE HCL 5 MG TABLET (FOR DETOX USE ONLY) PO SCH (06:00)
[2017-07-06 09:21] VITALS: BP 147/91; PULSE 73; TEMP 97
[2017-07-06] MEDS: DOCUSATE SODIUM 100 MG CAPSULE (FP) PO SCH (10:35)
[2017-07-06] MEDS: LISINOPRIL 10 MG TABLET (FP) PO SCH (10:35)
[2017-07-06] MEDS: PRENATAL VITAMINS W/ FOLIC ACID TABLET (FP) PO SCH (10:35)
[2017-07-06] MEDS: NICOTINE 21 MG/24 HOURS TOPICAL PATCH TD SCH (10:35)
[2017-07-06] MEDS: PANTOPRAZOLE 40 MG TABLET (FP) PO SCH (10:35)
--- NOTE | 2017-07-06 11:44 | DS ---
[facility] Detox Discharge Summary Admission Date: 07/01/17 Discharge Date: 07/06/17 - History Present History: Alcohol Dependence, Cocaine Dependence, Opioid Dependence Additional Comments: PATIENT GOING TO [facility] ([facility]) FOR AFTERCARE. PATIENT WAS DISCHARGED FROM DETOX UNIT IN STABLE MEDICAL CONDITION. Pertinent Past History: HTN, Bipolar Disorder, GERD, Depression, Nicotine Dependence. - Physical Exam Results Vital Signs: Vital Signs Temperature 97.0 F L 07/06/17 09:21 Pulse Rate 73 07/06/17 09:21 Respiratory Rate 20 07/06/17 09:21 Blood Pressure 147/91 07/06/17 09:21 O2 Sat by Pulse Oximetry (%) Pertinent Admission Physical Exam Findings: WITHDRAWAL SYMPTOMS. Laboratory Tests 07/01/17 07/02/17 07/02/17 20:35 06:00 07:50 WBC 8.0 D RBC 4.25 Hgb 13.4 Hct 40.7 MCV 95.9 MCH 31.5 MCHC 32.8 RDW 13.4 Plt Count 196 MPV 9.0 Sodium Potassium Chloride Carbon Dioxide Anion Gap BUN Creatinine Creat Clearance w eGFR Random Glucose Calcium Total Bilirubin AST ALT Alkaline Phosphatase Total Protein Albumin Urine Color Yellow Urine Appearance Clear Urine pH 5.0 Ur Specific [place] 1.016 Urine Protein Negative Urine Glucose (UA) Negative Urine Ketones Trace H Urine Blood Negative Urine Nitrite Negative Urine Bilirubin Negative Urine Urobilinogen 2.0 Ur Leukocyte Esterase Negative RPR Titer HIV 1&2 Antibody Screen Negative HIV P24 Antigen Negative 07/02/17 07/02/17 07:50 07:50 WBC RBC Hgb Hct MCV MCH MCHC RDW Plt Count MPV Sodium 138 Potassium 4.3 Chloride 102 Carbon Dioxide 30 Anion Gap 6 L BUN 16 Creatinine 1.0 Creat Clearance w eGFR > 60 Random Glucose 100 Calcium 8.5 Total Bilirubin 0.6 D AST 17 ALT 28 D Alkaline Phosphatase 91 D Total Protein 6.5 Albumin 3.5 Urine Color Urine Appearance Urine pH Ur Specific [place] Urine Protein Urine Glucose (UA) Urine Ketones Urine Blood Urine Nitrite Urine Bilirubin Urine Urobilinogen Ur Leukocyte Esterase RPR Titer Nonreactive HIV 1&2 Antibody Screen HIV P24 Antigen LABS NOTED. - Treatment Hospital Course: Detox Protocol Followed, Detoxed Safely, Responded well, Discharged Condition Good, Rehab Referral Accepted Patient has Accepted a Rehab Referral to: [facility] ([facility] - Medication Discharge Medications: Ambulatory Orders Quetiapine Fumarate [Seroquel -] 400 mg PO HS 11/28/16 Pantoprazole Sodium [Protonix -] 40 mg PO DAILY #30 mg 03/04/17 Venlafaxine HCl ER [Effexor Xr -] 75 mg PO DAILY #30 cap.er.24h 05/15/17 Lisinopril [Prinivil] 10 mg PO DAILY 07/01/17 Quetiapine Fumarate [Seroquel] 100 mg PO HS #30 tablet 07/02/17 - Diagnosis (1) Alcohol dependence with uncomplicated withdrawal Current Visit: Yes Status: Acute (2) Cocaine dependence, uncomplicated Current Visit: Yes Status: Chronic (3) Nicotine dependence Current Visit: Yes Status: Chronic Qualifiers: Nicotine product type: cigarettes Substance use status: uncomplicated Qualified Code(s): F17.210 - Nicotine dependence, cigarettes, uncomplicated (4) Opioid dependence with withdrawal Current Visit: Yes Status: Acute (5) GERD (gastroesophageal reflux disease) Current Visit: Yes Status: Chronic Qualifiers: Esophagitis presence: esophagitis presence not specified Qualified Code(s) : K21.9 - Gastro-esophageal reflux disease without esophagitis (6) Hypertension Current Visit: Yes Status: Chronic Qualifiers: Hypertension type: essential hypertension Qualified Code(s): I10 - Essential (primary) hypertension (7) History of bipolar disorder Current Visit: Yes Status: Acute (8) Insomnia Current Visit: Yes Status: Acute Qualifiers: Insomnia type: unspecified Qualified Code(s): G47.00 - Insomnia, unspecified (9) Substance induced mood disorder Current Visit: Yes Status: Acute - AMA Did Patient Leave Against Medical Advice: No
== END 2017-07-06 13:00 | disposition other institution (70) | DRG 773 ==
LOC: YASAS 14:54 → Y3N 18:11
PROVIDERS: ADMIT Internal Medicine; ATTEND Internal Medicine
PROC: HZ2ZZZZ Detoxification Services for Substance Abuse Treatment (ICD-10-PCS; principal; 2017-07-01)
DX: F11.23 Opioid dependence with withdrawal (principal); F10.230 Alcohol dependence with withdrawal, uncomplicated; F14.20 Cocaine dependence, uncomplicated; F17.210 Nicotine dependence, cigarettes, uncomplicated; F31.9 Bipolar disorder, unspecified; F19.24 Other psychoactive substance dependence with psychoactive substance-induced mood disorder; I10 Essential (primary) hypertension; K21.9 Gastro-esophageal reflux disease without esophagitis; G47.00 Insomnia, unspecified
CPT/HCPCS: 36415; 80053; 81003; 85027; 86593; 87389; 93005; 93010

== ENCOUNTER 2017-07-06 13:46 | Inpatient (IN) | payer OTHER ==
[2017-07-06] MEDS ORDERED: P-EPHED 60MG/TRIPROLIDI 2.5MG TABLET PO PRN (15:35)
[2017-07-06] MEDS ORDERED: MENTHOL/PHENOL 1 EACH UD MM PRN (15:35)
[2017-07-06] MEDS ORDERED: IBUPROFEN 400 MG TABLET (FP) PO PRN (15:35)
[2017-07-06] MEDS ORDERED: guaiFENesin/D-METHORPHAN HB 10 ML UNIT-DOSE CUPS PO PRN (15:35)
[2017-07-06] MEDS ORDERED: MAG HYDROX/AL HYDROX/SIMETH 30 ML UNIT-DOSE CUP PO PRN (15:35)
[2017-07-06] MEDS ORDERED: MAGNESIUM HYDROX 2400MG/30ML ORAL SUSPENSION 30 ML CUP PO PRN (15:35)
[2017-07-06] MEDS ORDERED: MAGNESIUM CITRATE 300 ML BOTTLE PO PRN (15:35)
[2017-07-06] MEDS ORDERED: LOPERAMIDE HCL 2 MG CAPSULE PO PRN (15:35)
--- NOTE | 2017-07-06 16:40 | HP ---
[facility] Rehab Assess/Revision - Admission History Admitted to Rehab from: [facility] Date of Admission to Rehab: 07/06/17 - Findings Detox History & Physical reviewed: Yes Concur with findings: Yes Comments/Additional Findings: transferred from detox to rehab admission as per protocol Inpatient Rehab Admission - Initial Determination Are CD services needed?: Yes Free of communicable disease: Yes Not in need of hospitalization: Yes - Rehab Admission Criteria Previous failed treatment: Yes Poor recovery environment: Yes Comorbidities: Yes Lacks judgement: No Patient is meeting Inpatient Rehab admission criteria:: Yes
[2017-07-06] MEDS: VENLAFAXINE HCL 75 MG E.R. CAPSULES (FP) PO SCH (18:26)
[2017-07-06] MEDS: RANITIDINE HCL 150 MG TABLET (FP) PO SCH (21:19)
[2017-07-06] MEDS: THIAMINE HCL 100 MG TABLET (FP) PO SCH (21:19)
[2017-07-06] MEDS ORDERED: BENZOCAINE 28 GM HEMORRHOIDAL OINTMENT PR ONE (22:00)
[2017-07-06] MEDS ORDERED: QUEtiapine FUMARATE 50 MG TABLET PO SCH (22:00)
[2017-07-07] MEDS ORDERED: HYDROCORTISONE 2.5% TOPICAL CREAM 30 GM TUBE PR ONE (08:51)
[2017-07-07] MEDS: NICOTINE 14 MG/24 HOURS TOPICAL PATCH TD SCH (10:35)
[2017-07-07] MEDS: VENLAFAXINE HCL 75 MG E.R. CAPSULES (FP) PO SCH (10:35)
[2017-07-07] MEDS: LISINOPRIL 10 MG TABLET (FP) PO SCH (10:36)
[2017-07-07] MEDS: PRENATAL VITAMINS W/ FOLIC ACID TABLET (FP) PO SCH (10:36)
[2017-07-07] MEDS: RANITIDINE HCL 150 MG TABLET (FP) PO SCH ×2 (10:37→21:23)
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
[2017-07-07] MEDS: THIAMINE HCL 100 MG TABLET (FP) PO SCH (21:23)
[2017-07-07] MEDS: QUEtiapine FUMARATE 100 MG TABLET (FP) PO SCH (21:23)
[2017-07-07] MEDS: NICOTINE POLACRILEX 2 MG GUM BUC PRN (21:26)
[2017-07-08] MEDS: PRENATAL VITAMINS W/ FOLIC ACID TABLET (FP) PO SCH (09:52)
[2017-07-08] MEDS: NICOTINE 14 MG/24 HOURS TOPICAL PATCH TD SCH (09:52)
[2017-07-08] MEDS: VENLAFAXINE HCL 75 MG E.R. CAPSULES (FP) PO SCH (09:52)
[2017-07-08] MEDS: RANITIDINE HCL 150 MG TABLET (FP) PO SCH ×2 (09:52→21:19)
[2017-07-08] MEDS: LISINOPRIL 10 MG TABLET (FP) PO SCH (09:53)
[2017-07-08] MEDS ORDERED: COLLOIDAL OATMEAL 1 BAR EACH TP PRN (14:32)
[2017-07-08] MEDS: QUEtiapine FUMARATE 100 MG TABLET (FP) PO SCH (21:19)
[2017-07-08] MEDS: THIAMINE HCL 100 MG TABLET (FP) PO SCH (21:19)
[2017-07-08] MEDS: NICOTINE POLACRILEX 2 MG GUM BUC PRN (21:20)
[2017-07-09] MEDS: LISINOPRIL 10 MG TABLET (FP) PO SCH (09:47)
[2017-07-09] MEDS: NICOTINE 14 MG/24 HOURS TOPICAL PATCH TD SCH (09:48)
[2017-07-09] MEDS: PRENATAL VITAMINS W/ FOLIC ACID TABLET (FP) PO SCH (09:48)
[2017-07-09] MEDS: VENLAFAXINE HCL 75 MG E.R. CAPSULES (FP) PO SCH (09:48)
[2017-07-09] MEDS: RANITIDINE HCL 150 MG TABLET (FP) PO SCH ×2 (09:48→21:18)
[2017-07-09] MEDS: NICOTINE POLACRILEX 2 MG GUM BUC PRN ×3 (09:49→21:18)
[2017-07-09] MEDS: THIAMINE HCL 100 MG TABLET (FP) PO SCH (21:17)
[2017-07-09] MEDS: QUEtiapine FUMARATE 100 MG TABLET (FP) PO SCH (21:18)
[2017-07-10] MEDS: PRENATAL VITAMINS W/ FOLIC ACID TABLET (FP) PO SCH (09:33)
[2017-07-10] MEDS: RANITIDINE HCL 150 MG TABLET (FP) PO SCH ×2 (09:34→21:20)
[2017-07-10] MEDS: NICOTINE 14 MG/24 HOURS TOPICAL PATCH TD SCH (09:34)
[2017-07-10] MEDS: LISINOPRIL 10 MG TABLET (FP) PO SCH (09:34)
[2017-07-10] MEDS: VENLAFAXINE HCL 75 MG E.R. CAPSULES (FP) PO SCH (09:34)
[2017-07-10] MEDS: QUEtiapine FUMARATE 100 MG TABLET (FP) PO SCH (21:20)
[2017-07-10] MEDS: THIAMINE HCL 100 MG TABLET (FP) PO SCH (21:20)
[2017-07-11] MEDS: NICOTINE 14 MG/24 HOURS TOPICAL PATCH TD SCH (09:36)
[2017-07-11] MEDS: PRENATAL VITAMINS W/ FOLIC ACID TABLET (FP) PO SCH (09:37)
[2017-07-11] MEDS: VENLAFAXINE HCL 75 MG E.R. CAPSULES (FP) PO SCH (09:37)
[2017-07-11] MEDS: LISINOPRIL 10 MG TABLET (FP) PO SCH (09:37)
[2017-07-11] MEDS: RANITIDINE HCL 150 MG TABLET (FP) PO SCH ×2 (09:37→21:19)
[2017-07-11] MEDS: THIAMINE HCL 100 MG TABLET (FP) PO SCH (21:19)
[2017-07-11] MEDS: QUEtiapine FUMARATE 100 MG TABLET (FP) PO SCH (21:19)
[2017-07-12] MEDS: RANITIDINE HCL 150 MG TABLET (FP) PO SCH ×2 (09:58→21:38)
[2017-07-12] MEDS: LISINOPRIL 10 MG TABLET (FP) PO SCH (09:58)
[2017-07-12] MEDS: VENLAFAXINE HCL 75 MG E.R. CAPSULES (FP) PO SCH (09:58)
[2017-07-12] MEDS: PRENATAL VITAMINS W/ FOLIC ACID TABLET (FP) PO SCH (09:58)
[2017-07-12] MEDS: NICOTINE 14 MG/24 HOURS TOPICAL PATCH TD SCH (09:58)
[2017-07-12] MEDS: NICOTINE POLACRILEX 2 MG GUM BUC PRN (10:00)
--- NOTE | 2017-07-12 14:30 | PN ---
Psychiatric Progress Note Vital Signs: Vital Signs Period Temp Pulse Resp BP Sys/Montoya Pulse Ox Last 24 Hr 97.5 F 57-62 18-20 129-133/75-86 Date of Session: 07/12/17 Chief Complaint:: progress update. HPI: patient is addressing alcohol, opioid, cocaine , nicotine dependence comorbid bipolar I disorder, most recent episode depressed. ROS: HTN, GERD, lower back pain medically managed. Current Medications: Active Medications Generic Name Dose Route Start Last Admin Trade Name Freq PRN Reason Stop Dose Admin Acetaminophen 650 mg 07/06/17 15:35 Tylenol - PO Q4H PRN FEVER OR PAIN Al Hydroxide/Mg Hydroxide 30 ml 07/06/17 15:35 Mylanta Oral Suspension - PO Q6H PRN DYSPEPSIA Colloidal Oatmeal 1 applic 07/08/17 14:32 Aveeno Soap - TP DAILY PRN HYGEINE Eucalyptus/Menthol/Phenol/Sorbitol 1 each 07/06/17 15:35 Cepastat Lozenge - MM Q4H PRN SORE THROAT Guaifenesin 10 ml 07/06/17 15:35 Robitussin Dm - PO Q6H PRN COUGH Ibuprofen 400 mg 07/06/17 15:35 Motrin - PO Q6H PRN PAIN Lisinopril 10 mg 07/07/17 10:00 07/12/17 09:58 Prinivil PO 10 mg DAILY LETICIA Administration Loperamide HCl 4 mg 07/06/17 15:35 Imodium - PO Q6H PRN DIARRHEA Magnesium Citrate 300 ml 07/06/17 15:35 Citroma - PO Q48H PRN CONSTIPATION Magnesium Hydroxide 30 ml 07/06/17 15:35 Milk Of Magnesia - PO DAILY PRN CONSTIPATION Nicotine 14 mg 07/07/17 10:00 07/12/17 09:58 Nicoderm Patch - TD 14 mg DAILY LETICIA Administration Nicotine Polacrilex 2 mg 07/07/17 08:50 07/12/17 10:00 Nicorette Gum - BUC 2 mg Q2H PRN Administration NICOTINE REPLACEMENT RX Multivit/Folic Acid/Iron 1 tab 07/07/17 10:00 07/12/17 09:58 Vitamins ([facility]) - PO 1 tab DAILY LETICIA Administration Pseudoephedrine/Triprolidine 1 combo 12/27/17 15:35 Actifed - PO TID PRN NASAL CONGESTION Quetiapine Fumarate 150 mg 07/12/17 14:23 Seroquel - PO HS LETICIA Ranitidine HCl 150 mg 07/06/17 22:00 07/12/17 09:58 Zantac - PO 150 mg BID LETICIA Administration Thiamine HCl 100 mg 07/06/17 22:00 07/11/17 21:19 Vitamin B1 - PO 100 mg HS LETICIA Administration Venlafaxine HCl 75 mg 07/06/17 18:15 07/12/17 09:58 Effexor Xr - PO 75 mg DAILY LETICIA Administration Current Side Effect: No Lab tests ordered: No Lab tests reviewed: Yes Provider note:: Patient generally adjusted well to the unit well, he c/o interrupted sleep , having racing thoughts at nights which keep him up, reviewed medications with the patient will increase seroquel 150 mg po hs, continue to monitor progress. Total face to face time:: 15 Mental Status Exam - Mental Status Exam Alert and Oriented to: Time, Place, Person Cognitive Function: Good Patient Appearance: Well Groomed Mood: Sad Affect: Appropriate, Mood Congruent, Normal Range Patient Behavior: Appropriate, Cooperative Speech Pattern: Clear, Appropriate Voice Loudness: Normal Thought Process: Goal Oriented Thought Disorder: Not Present Hallucinations: Denies Suicidal Ideation: Denies Homicidal Ideation: Denies Insight/Judgement: Fair Sleep: Poorly, Difficulty falling asleep Appetite: Fair Muscle strength/Tone: Normal Gait/Station: Normal Psychiatric Treatment Plan - Problem List (1) Opioid dependence Current Visit: Yes (2) Cocaine dependence Current Visit: Yes (3) Alcohol dependence Current Visit: Yes (4) Bipolar disorder, most recent episode depressed Current Visit: Yes (5) Nicotine dependence Current Visit: No Qualifiers: Nicotine product type: cigarettes Substance use status: uncomplicated Qualified Code(s): F17.210 - Nicotine dependence, cigarettes, uncomplicated
[2017-07-12] MEDS: QUEtiapine FUMARATE 50 MG TABLET PO SCH (21:38)
[2017-07-12] MEDS: THIAMINE HCL 100 MG TABLET (FP) PO SCH (21:38)
[2017-07-13] MEDS: LISINOPRIL 10 MG TABLET (FP) PO SCH (09:51)
[2017-07-13] MEDS: VENLAFAXINE HCL 75 MG E.R. CAPSULES (FP) PO SCH (09:51)
[2017-07-13] MEDS: PRENATAL VITAMINS W/ FOLIC ACID TABLET (FP) PO SCH (09:51)
[2017-07-13] MEDS: RANITIDINE HCL 150 MG TABLET (FP) PO SCH ×2 (09:51→21:15)
[2017-07-13] MEDS: NICOTINE 14 MG/24 HOURS TOPICAL PATCH TD SCH (09:51)
[2017-07-13] MEDS: THIAMINE HCL 100 MG TABLET (FP) PO SCH (21:15)
[2017-07-13] MEDS: QUEtiapine FUMARATE 50 MG TABLET PO SCH (21:15)
[2017-07-13] MEDS: NICOTINE POLACRILEX 2 MG GUM BUC PRN (21:16)
[2017-07-14] MEDS: RANITIDINE HCL 150 MG TABLET (FP) PO SCH ×2 (10:00→21:15)
[2017-07-14] MEDS: LISINOPRIL 10 MG TABLET (FP) PO SCH (10:00)
[2017-07-14] MEDS: PRENATAL VITAMINS W/ FOLIC ACID TABLET (FP) PO SCH (10:00)
[2017-07-14] MEDS: VENLAFAXINE HCL 75 MG E.R. CAPSULES (FP) PO SCH (10:00)
[2017-07-14] MEDS: NICOTINE 14 MG/24 HOURS TOPICAL PATCH TD SCH (10:00)
[2017-07-14] MEDS: NICOTINE POLACRILEX 2 MG GUM BUC PRN (10:01)
[2017-07-14] MEDS: ACETAMINOPHEN 325 MG TABLET (FP) PO PRN (10:03)
[2017-07-14] MEDS: QUEtiapine FUMARATE 50 MG TABLET PO SCH (21:15)
[2017-07-14] MEDS: THIAMINE HCL 100 MG TABLET (FP) PO SCH (21:15)
[2017-07-15] MEDS: RANITIDINE HCL 150 MG TABLET (FP) PO SCH ×2 (09:53→21:18)
[2017-07-15] MEDS: LISINOPRIL 10 MG TABLET (FP) PO SCH (09:54)
[2017-07-15] MEDS: NICOTINE 14 MG/24 HOURS TOPICAL PATCH TD SCH (09:54)
[2017-07-15] MEDS: VENLAFAXINE HCL 75 MG E.R. CAPSULES (FP) PO SCH (09:54)
[2017-07-15] MEDS: PRENATAL VITAMINS W/ FOLIC ACID TABLET (FP) PO SCH (09:54)
[2017-07-15] MEDS: QUEtiapine FUMARATE 50 MG TABLET PO SCH (21:19)
[2017-07-15] MEDS: THIAMINE HCL 100 MG TABLET (FP) PO SCH (21:19)
[2017-07-16 06:49] VITALS: BP 138/80; PULSE 56; TEMP 97.7
[2017-07-16] MEDS: RANITIDINE HCL 150 MG TABLET (FP) PO SCH (10:05)
[2017-07-16] MEDS: PRENATAL VITAMINS W/ FOLIC ACID TABLET (FP) PO SCH (10:05)
[2017-07-16] MEDS: VENLAFAXINE HCL 75 MG E.R. CAPSULES (FP) PO SCH (10:05)
[2017-07-16] MEDS: NICOTINE 14 MG/24 HOURS TOPICAL PATCH TD SCH (10:05)
[2017-07-16] MEDS: LISINOPRIL 10 MG TABLET (FP) PO SCH (10:06)
[2017-07-16] MEDS: ACETAMINOPHEN 325 MG TABLET (FP) PO PRN (10:07)
--- NOTE | 2017-07-16 11:21 | PN ---
[facility] Progress Note Note: patient requested to be discharged today, discharge order placed, scripts for 30 days provided, patient is stable for discharge.
== END 2017-07-16 11:45 | disposition home or self-care (01) | DRG 772 ==
LOC: YASAS 13:46 → Y5N 13:48
PROVIDERS: ADMIT Psychiatry & Neurology Psychiatry; ATTEND Psychiatry & Neurology Psychiatry
PROC: HZ42ZZZ Group Counseling for Substance Abuse Treatment, Cognitive-Behavioral (ICD-10-PCS; principal; 2017-07-06)
DX: F11.20 Opioid dependence, uncomplicated (principal); F10.20 Alcohol dependence, uncomplicated; F14.20 Cocaine dependence, uncomplicated; F17.210 Nicotine dependence, cigarettes, uncomplicated; F31.9 Bipolar disorder, unspecified

== ENCOUNTER 2018-01-28 13:23 | Inpatient (IN) | payer OTHER ==
[2018-01-28 13:45] VITALS: BMI 25.5
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
[2018-01-28] MEDS ORDERED: chlordiazePOXIDE HCL 25 MG CAPSULE PO ONE (14:40)
[2018-01-28] MEDS ORDERED: MAGNESIUM CITRATE 300 ML BOTTLE PO PRN (14:40)
[2018-01-28] MEDS ORDERED: MAGNESIUM HYDROX 2400MG/30ML ORAL SUSPENSION 30 ML CUP PO PRN (14:40)
[2018-01-28] MEDS ORDERED: IBUPROFEN 400 MG TABLET (FP) PO PRN (14:40)
[2018-01-28] MEDS ORDERED: METHADONE HCL 10 MG TABLET (FOR DETOX USE ONLY) PO ONE ×2 (14:40→23:00)
[2018-01-28] MEDS ORDERED: guaiFENesin/D-METHORPHAN HB 10 ML UNIT-DOSE CUPS PO PRN (14:40)
[2018-01-28] MEDS ORDERED: MENTHOL/PHENOL 1 EACH UD MM PRN (14:40)
[2018-01-28] MEDS ORDERED: P-EPHED 60MG/TRIPROLIDI 2.5MG TABLET PO PRN (14:40)
[2018-01-28] MEDS ORDERED: MAG HYDROX/AL HYDROX/SIMETH 30 ML UNIT-DOSE CUP PO PRN (14:40)
[2018-01-28] MEDS ORDERED: ACETAMINOPHEN 325 MG TABLET (FP) PO PRN (14:40)
[2018-01-28] MEDS ORDERED: hydrOXYzine PAMOATE 25 MG CAPSULE (FP) PO PRN (14:40)
[2018-01-28] MEDS ORDERED: LOPERAMIDE HCL 2 MG CAPSULE PO PRN (14:40)
[2018-01-28] MEDS ORDERED: chlordiazePOXIDE HCL 25 MG CAPSULE PO PRN (14:40)
[2018-01-28] MEDS: chlordiazePOXIDE HCL 25 MG CAPSULE PO SCH ×2 (18:03→22:45)
[2018-01-28] MEDS: NICOTINE 21 MG/24 HOURS TOPICAL PATCH TD SCH (18:07)
[2018-01-28] MEDS ORDERED: MELATONIN 5 MG TABLETS PO PRN (22:00)
[2018-01-28] MEDS: THIAMINE HCL 100 MG TABLET (FP) PO SCH (22:44)
[2018-01-29] MEDS: chlordiazePOXIDE HCL 25 MG CAPSULE PO SCH ×4 (06:26→22:21)
--- NOTE | 2018-01-29 08:37 | EKG ---
Test Reason : Blood Pressure : / mmHG Vent. Rate : 065 BPM Atrial Rate : 065 BPM P-R Int : 130 ms QRS Dur : 084 ms QT Int : 402 ms P-R-T Axes : 073 061 023 degrees QTc Int : 418 ms NORMAL SINUS RHYTHM NORMAL ECG WHEN COMPARED WITH ECG OF 01-JUL-2017 20:30, NO SIGNIFICANT CHANGE WAS FOUND Confirmed by SHELBIE PEÑA MD ([id number]) on 01/29/2018 8:37:20 AM Referred By: Confirmed By:SHELBIE PEÑA MD
--- NOTE | 2018-01-29 09:42 | PN ---
[facility] CIWA - CIWA Score Nausea/Vomitin-Mild Nausea/No Vomiting Muscle Tremors: 4-Moderate,w/Arms Extend Anxiety: 3 Agitation: 4-Moderately Restless Paroxysmal Sweats: 1-Minimal Palms Moist Orientation: 0-Oriented Tacttile Disturbances: 0-None Auditory Disturbances: 0-None Visual Disturbances: 0-None Headache: 2-Mild CIWA-Ar Total Score: 15 BHS COWS - Scale Resting Pulse: 0= [place] 80 or Below Sweatin= Chills/Flushing Restless Observation: 1= Difficult to Sit Still Pupil Size: 0= Normal to Room Light Bone or Joint Aches: 2= Severe Diffuse Aches Runny Nose/ Eye Tearin= Runny Nose/Eyes GI Upset > 30mins: 2= Nausea/Diarrhea Tremor Observation of Outstretched Hands: 2= Slight Tremor Visible Yawning Observation: 2= >3x During Session Anxiety or Irritability: 2=Irritable/Anxious Goose Flesh Skin: 0=Smooth Skin COWS Score: 14 S Progress Note (SOAP) Subjective: headache sweat tremor restlessness muscle ache trouble sleep at night Objective: 01/29/18 09:43 Vital Signs Temperature 97.7 F 01/29/18 09:21 Pulse Rate 55 L 01/29/18 09:21 Respiratory Rate 18 01/29/18 09:21 Blood Pressure 137/62 01/29/18 09:21 O2 Sat by Pulse Oximetry (%) lab pending Assessment: 01/29/18 09:43 withdrawal sx Plan: continue alcohol and opiate detox
[2018-01-29] MEDS ORDERED: METHADONE HCL 10 MG TABLET (FOR DETOX USE ONLY) PO SCH (10:00)
[2018-01-29] MEDS: LISINOPRIL 10 MG TABLET (FP) PO SCH (10:04)
[2018-01-29] MEDS: NICOTINE 21 MG/24 HOURS TOPICAL PATCH TD SCH (10:04)
[2018-01-29] MEDS: PANTOPRAZOLE 40 MG TABLET (FP) PO SCH (10:04)
[2018-01-29] MEDS: PRENATAL VITAMINS W/ FOLIC ACID TABLET (FP) PO SCH (10:04)
[2018-01-29 10:23] LABS: HEMATOCRIT 42.1 % (35.4-49); HEMOGLOBIN 14.3 GM/dL (11.7-16.9); MCH 32.8 pg (25.7-33.7); MEAN CELL VOLUME 96.4 fl (80-96); PLATELET COUNT 171 K/MM3 (134-434); RBC 4.37 M/mm3 (4.00-5.60); RDW 13.8 % (11.9-15.9); WHITE BLOOD COUNT 7.8 K/mm3 (4.0-10.0)
[2018-01-29 10:54] LABS: CHLORIDE 102 mmol/L (98-107); POTASSIUM 4.3 mmol/L (3.5-5.1); SODIUM 141 mmol/L (136-145)
[2018-01-29 11:08] LABS: ALBUMIN 3.7 g/dl (3.4-5.0); ALK PHOS 84 U/L (45-117); ANION GAP 5 (8-16); BILIRUBIN,TOTAL 0.2 mg/dL (0.2-1.0); BLOOD UREA NITROGEN 15 mg/dL (7-18); CALCIUM 9.5 mg/dL (8.5-10.1); CO2 34 mmol/L (21-32); CREATININE 1.1 mg/dL (0.7-1.3); GLUCOSE,RANDOM 103 mg/dL (74-106); SGOT/AST 21 U/L (15-37); SGPT/ALT 29 U/L (12-78)
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
[2018-01-29] MEDS ORDERED: QUEtiapine FUMARATE 100 MG TABLET (FP) PO SCH (12:30)
[2018-01-29] MEDS ORDERED: VENLAFAXINE HCL 100 MG TABLET PO ONE (13:30)
[2018-01-29] MEDS: NICOTINE POLACRILEX 4 MG GUM BC PRN (14:15)
[2018-01-29] MEDS: THIAMINE HCL 100 MG TABLET (FP) PO SCH (22:21)
[2018-01-29] MEDS: QUEtiapine FUMARATE 100 MG TABLET (FP) PO SCH (22:21)
[2018-01-30] MEDS: chlordiazePOXIDE HCL 25 MG CAPSULE PO SCH ×2 (06:00→10:21)
[2018-01-30] MEDS: METHADONE HCL 5 MG TABLET (FOR DETOX USE ONLY) PO SCH (10:18)
[2018-01-30] MEDS: LISINOPRIL 10 MG TABLET (FP) PO SCH (10:19)
[2018-01-30] MEDS: PANTOPRAZOLE 40 MG TABLET (FP) PO SCH (10:19)
[2018-01-30] MEDS: PRENATAL VITAMINS W/ FOLIC ACID TABLET (FP) PO SCH (10:19)
[2018-01-30] MEDS: NICOTINE 21 MG/24 HOURS TOPICAL PATCH TD SCH (10:19)
--- NOTE | 2018-01-30 10:20 | PN ---
[facility] CIWA - CIWA Score Nausea/Vomitin Muscle Tremors: 3 Anxiety: 3 Agitation: 2 Paroxysmal Sweats: 1-Minimal Palms Moist Orientation: 0-Oriented Tacttile Disturbances: 1-Very Mild Itch/Numbness Auditory Disturbances: 1-Very Mild Visual Disturbances: 0-None Headache: 2-Mild CIWA-Ar Total Score: 16 [facility] COWS - Scale Resting Pulse: 0= [place] 80 or Below Sweatin= Chills/Flushing Restless Observation: 3= Extraneous Movement Pupil Size: 1= Pupils >than Normal Bone or Joint Aches: 2= Severe Diffuse Aches Runny Nose/ Eye Tearin= Runny Nose/Eyes GI Upset > 30mins: 2= Nausea/Diarrhea Tremor Observation of Outstretched Hands: 2= Slight Tremor Visible Yawning Observation: 1= 1-2x During Session Anxiety or Irritability: 2=Irritable/Anxious Goose Flesh Skin: 0=Smooth Skin COWS Score: 16 [facility] Progress Note (SOAP) Subjective: alert,irritable,interrupted sleep,tremor,pain in the body abd back Objective: 01/30/18 10:18 Vital Signs Temperature 97.7 F 01/30/18 06:00 Pulse Rate 54 L 01/30/18 06:00 Respiratory Rate 20 01/30/18 06:00 Blood Pressure 153/90 01/30/18 06:00 O2 Sat by Pulse Oximetry (%) Laboratory Last Values WBC 7.8 K/mm3 (4.0-10.0) 01/29/18 07:50 RBC 4.37 M/mm3 (4.00-5.60) 01/29/18 07:50 Hgb 14.3 GM/dL (11.7-16.9) 01/29/18 07:50 Hct 42.1 % (35.4-49) 01/29/18 07:50 MCV 96.4 fl (80-96) H 01/29/18 07:50 MCH 32.8 pg (25.7-33.7) 01/29/18 07:50 MCHC 34.0 g/dl (32.0-35.9) 01/29/18 07:50 RDW 13.8 % (11.9-15.9) 01/29/18 07:50 Plt Count 171 K/MM3 (134-434) 01/29/18 07:50 MPV 9.0 fl (7.5-11.1) 01/29/18 07:50 Sodium 141 mmol/L (136-145) 01/29/18 07:50 Potassium 4.3 mmol/L (3.5-5.1) 01/29/18 07:50 Chloride 102 mmol/L (98-107) 01/29/18 07:50 Carbon Dioxide 34 mmol/L (21-32) H 01/29/18 07:50 Anion Gap 5 (8-16) L 01/29/18 07:50 BUN 15 mg/dL (7-18) 01/29/18 07:50 Creatinine 1.1 mg/dL (0.7-1.3) 01/29/18 07:50 Creat Clearance w eGFR > 60 (>60) 01/29/18 07:50 Random Glucose 103 mg/dL (74-106) 01/29/18 07:50 Calcium 9.5 mg/dL (8.5-10.1) 01/29/18 07:50 Total Bilirubin 0.2 mg/dL (0.2-1.0) 01/29/18 07:50 AST 21 U/L (15-37) D 01/29/18 07:50 ALT 29 U/L (12-78) 01/29/18 07:50 Alkaline Phosphatase 84 U/L (45-117) 01/29/18 07:50 Total Protein 7.0 g/dl (6.4-8.2) 01/29/18 07:50 Albumin 3.7 g/dl (3.4-5.0) 01/29/18 07:50 RPR Titer Nonreactive (NONREACTIVE) 01/29/18 07:50 Assessment: 01/30/18 10:19withdrawal symptom Plan: continue detox
[2018-01-30] MEDS: chlordiazePOXIDE 5 MG CAPSULE PO SCH ×2 (17:47→22:27)
[2018-01-30] MEDS: QUEtiapine FUMARATE 100 MG TABLET (FP) PO SCH (22:27)
[2018-01-30] MEDS: THIAMINE HCL 100 MG TABLET (FP) PO SCH (22:27)
[2018-01-31] MEDS: chlordiazePOXIDE 5 MG CAPSULE PO SCH ×2 (05:47→10:12)
--- NOTE | 2018-01-31 09:38 | PN ---
[facility] Progress Note (SOAP) Subjective: alert,irritable,anxious,interrupted sleep,pain in the body Objective: 01/31/18 09:37 Vital Signs Temperature 97.1 F L 01/31/18 09:05 Pulse Rate 65 01/31/18 09:05 Respiratory Rate 18 01/31/18 09:05 Blood Pressure 147/85 01/31/18 09:05 O2 Sat by Pulse Oximetry (%) Assessment: 01/31/18 09:37 withdrawal symptom Plan: continue detox
[2018-01-31] MEDS: NICOTINE POLACRILEX 4 MG GUM BC PRN (09:55)
[2018-01-31] MEDS: NICOTINE 21 MG/24 HOURS TOPICAL PATCH TD SCH (10:11)
[2018-01-31] MEDS: PRENATAL VITAMINS W/ FOLIC ACID TABLET (FP) PO SCH (10:12)
[2018-01-31] MEDS: PANTOPRAZOLE 40 MG TABLET (FP) PO SCH (10:12)
[2018-01-31] MEDS: METHADONE HCL 5 MG TABLET (FOR DETOX USE ONLY) PO SCH (10:12)
[2018-01-31] MEDS: LISINOPRIL 10 MG TABLET (FP) PO SCH (10:18)
[2018-01-31] MEDS: chlordiazePOXIDE HCL 10 MG CAPSULE PO SCH ×2 (19:17→22:44)
[2018-01-31] MEDS: THIAMINE HCL 100 MG TABLET (FP) PO SCH (22:43)
[2018-01-31] MEDS: QUEtiapine FUMARATE 100 MG TABLET (FP) PO SCH (22:44)
[2018-02-01] MEDS: chlordiazePOXIDE HCL 10 MG CAPSULE PO SCH ×2 (05:55→10:12)
[2018-02-01] MEDS ORDERED: METHADONE HCL 10 MG TABLET (FOR DETOX USE ONLY) PO SCH (10:00)
[2018-02-01] MEDS: PRENATAL VITAMINS W/ FOLIC ACID TABLET (FP) PO SCH (10:12)
[2018-02-01] MEDS: PANTOPRAZOLE 40 MG TABLET (FP) PO SCH (10:12)
[2018-02-01] MEDS: NICOTINE 21 MG/24 HOURS TOPICAL PATCH TD SCH (10:12)
[2018-02-01] MEDS: LISINOPRIL 10 MG TABLET (FP) PO SCH (10:12)
--- NOTE | 2018-02-01 12:07 | PN ---
[facility] Progress Note (SOAP) Subjective: feeling better social with peers in day room discuss aftercare less sweat no tremor no gi distress no body aches Objective: 02/01/18 12:08 Vital Signs Temperature 97.2 F L 02/01/18 11:34 Pulse Rate 58 L 02/01/18 11:34 Respiratory Rate 18 02/01/18 11:34 Blood Pressure 148/83 02/01/18 11:34 O2 Sat by Pulse Oximetry (%) Laboratory Last Values WBC 7.8 K/mm3 (4.0-10.0) 01/29/18 07:50 RBC 4.37 M/mm3 (4.00-5.60) 01/29/18 07:50 Hgb 14.3 GM/dL (11.7-16.9) 01/29/18 07:50 Hct 42.1 % (35.4-49) 01/29/18 07:50 MCV 96.4 fl (80-96) H 01/29/18 07:50 MCH 32.8 pg (25.7-33.7) 01/29/18 07:50 MCHC 34.0 g/dl (32.0-35.9) 01/29/18 07:50 RDW 13.8 % (11.9-15.9) 01/29/18 07:50 Plt Count 171 K/MM3 (134-434) 01/29/18 07:50 MPV 9.0 fl (7.5-11.1) 01/29/18 07:50 Sodium 141 mmol/L (136-145) 01/29/18 07:50 Potassium 4.3 mmol/L (3.5-5.1) 01/29/18 07:50 Chloride 102 mmol/L (98-107) 01/29/18 07:50 Carbon Dioxide 34 mmol/L (21-32) H 01/29/18 07:50 Anion Gap 5 (8-16) L 01/29/18 07:50 BUN 15 mg/dL (7-18) 01/29/18 07:50 Creatinine 1.1 mg/dL (0.7-1.3) 01/29/18 07:50 Creat Clearance w eGFR > 60 (>60) 01/29/18 07:50 Random Glucose 103 mg/dL (74-106) 01/29/18 07:50 Calcium 9.5 mg/dL (8.5-10.1) 01/29/18 07:50 Total Bilirubin 0.2 mg/dL (0.2-1.0) 01/29/18 07:50 AST 21 U/L (15-37) D 01/29/18 07:50 ALT 29 U/L (12-78) 01/29/18 07:50 Alkaline Phosphatase 84 U/L (45-117) 01/29/18 07:50 Total Protein 7.0 g/dl (6.4-8.2) 01/29/18 07:50 Albumin 3.7 g/dl (3.4-5.0) 01/29/18 07:50 RPR Titer Nonreactive (NONREACTIVE) 01/29/18 07:50 lab noted Assessment: 02/01/18 12:09 mild withdrawal sx Plan: medically supervised detox
[2018-02-01] MEDS ORDERED: ONDANSETRON *ODT* 4 MG TABLET SL PRN (19:12)
--- NOTE | 2018-02-01 19:13 | PN ---
S Progress Note Note: Vital Signs Temperature 97.7 F 02/01/18 18:53 Pulse Rate 58 L 02/01/18 18:53 Respiratory Rate 18 02/01/18 18:53 Blood Pressure 154/86 02/01/18 18:53 O2 Sat by Pulse Oximetry (%) c/o of nausea and vomiting withdrawal sx zofran PRN fluids as tolerated continue to monitor
[2018-02-01] MEDS: THIAMINE HCL 100 MG TABLET (FP) PO SCH (22:36)
[2018-02-01] MEDS: QUEtiapine FUMARATE 100 MG TABLET (FP) PO SCH (22:36)
[2018-02-02] MEDS ORDERED: METHADONE HCL 5 MG TABLET (FOR DETOX USE ONLY) PO SCH (06:00)
--- NOTE | 2018-02-02 08:43 | DS ---
[facility] Detox Discharge Summary Admission Date: 01/28/18 Discharge Date: 02/02/18 - History Present History: Alcohol Dependence, Opioid Dependence Additional Comments: 52 years old male admitted on 01/28/18 for alcohol and opiate withdrawal sx completed alcohol and opiate detox regimen tolerated well had mild gi distress yesterday feeling better today ate 90% breakfast denies alcohol and opiate withdrawal sx alert oriented x 3 no acute distress aftercare [facility] Pertinent Past History: patient agrees follow up at [facility] for medical such as hypertension mental and addiction issues health teaching on risks of medications none adherence also alcohol and opiate misuse complications related to hypertension - Physical Exam Results Vital Signs: Vital Signs Temperature 97 F L 02/02/18 07:25 Pulse Rate 53 L 02/02/18 07:25 Respiratory Rate 20 02/02/18 07:25 Blood Pressure 154/84 02/02/18 07:25 O2 Sat by Pulse Oximetry (%) Pertinent Admission Physical Exam Findings: alcohol and opiate withdrawal sx Vital Signs Temperature 97 F L 02/02/18 07:25 Pulse Rate 53 L 02/02/18 07:25 Respiratory Rate 20 02/02/18 07:25 Blood Pressure 154/84 02/02/18 07:25 O2 Sat by Pulse Oximetry (%) Laboratory Last Values WBC 7.8 K/mm3 (4.0-10.0) 01/29/18 07:50 RBC 4.37 M/mm3 (4.00-5.60) 01/29/18 07:50 Hgb 14.3 GM/dL (11.7-16.9) 01/29/18 07:50 Hct 42.1 % (35.4-49) 01/29/18 07:50 MCV 96.4 fl (80-96) H 01/29/18 07:50 MCH 32.8 pg (25.7-33.7) 01/29/18 07:50 MCHC 34.0 g/dl (32.0-35.9) 01/29/18 07:50 RDW 13.8 % (11.9-15.9) 01/29/18 07:50 Plt Count 171 K/MM3 (134-434) 01/29/18 07:50 MPV 9.0 fl (7.5-11.1) 01/29/18 07:50 Sodium 141 mmol/L (136-145) 01/29/18 07:50 Potassium 4.3 mmol/L (3.5-5.1) 01/29/18 07:50 Chloride 102 mmol/L (98-107) 01/29/18 07:50 Carbon Dioxide 34 mmol/L (21-32) H 01/29/18 07:50 Anion Gap 5 (8-16) L 01/29/18 07:50 BUN 15 mg/dL (7-18) 01/29/18 07:50 Creatinine 1.1 mg/dL (0.7-1.3) 01/29/18 07:50 Creat Clearance w eGFR > 60 (>60) 01/29/18 07:50 Random Glucose 103 mg/dL (74-106) 01/29/18 07:50 Calcium 9.5 mg/dL (8.5-10.1) 01/29/18 07:50 Total Bilirubin 0.2 mg/dL (0.2-1.0) 01/29/18 07:50 AST 21 U/L (15-37) D 01/29/18 07:50 ALT 29 U/L (12-78) 01/29/18 07:50 Alkaline Phosphatase 84 U/L (45-117) 01/29/18 07:50 Total Protein 7.0 g/dl (6.4-8.2) 01/29/18 07:50 Albumin 3.7 g/dl (3.4-5.0) 01/29/18 07:50 RPR Titer Nonreactive (NONREACTIVE) 01/29/18 07:50 lab noted - Treatment Hospital Course: Detox Protocol Followed, Detoxed Safely, Responded well, Discharged Condition Good, Rehab Referral Accepted Patient has Accepted a Rehab Referral to: [facility] services - Medication Discharge Medications: Ambulatory Orders Venlafaxine HCl ER [Effexor Xr -] 75 mg PO DAILY #30 cap.er.24h 05/15/17 Quetiapine Fumarate [Seroquel] 100 mg PO HS #30 tablet 07/02/17 Pantoprazole Sodium [Protonix -] 40 mg PO DAILY #30 tab 07/16/17 Lisinopril [Prinivil] 10 mg PO DAILY #14 tablet 02/01/18 - Diagnosis (1) Alcohol dependence with uncomplicated withdrawal Current Visit: Yes Status: Acute (2) Hypertension Current Visit: Yes Status: Chronic Qualifiers: Hypertension type: essential hypertension Qualified Code(s): I10 - Essential (primary) hypertension (3) Nicotine dependence Current Visit: Yes Status: Acute Qualifiers: Nicotine product type: cigarettes Substance use status: in withdrawal Qualified Code(s): F17.213 - Nicotine dependence, cigarettes, with withdrawal (4) Opioid dependence with withdrawal Current Visit: Yes Status: Chronic (5) Substance induced mood disorder Current Visit: Yes Status: Suspected - AMA Did Patient Leave Against Medical Advice: No
[2018-02-02] MEDS ORDERED: LISINOPRIL 10 MG TABLET (FP) PO SCH (10:00)
[2018-02-02] MEDS: PRENATAL VITAMINS W/ FOLIC ACID TABLET (FP) PO SCH (10:04)
[2018-02-02] MEDS: PANTOPRAZOLE 40 MG TABLET (FP) PO SCH (10:04)
[2018-02-02] MEDS: NICOTINE 21 MG/24 HOURS TOPICAL PATCH TD SCH (10:05)
[2018-02-02 10:38] VITALS: BP 150/91; PULSE 70; TEMP 97
[2018-02-02 14:43] LABS: URINE APPEARANCE CLEAR; URINE BILIRUBIN NEGATIVE (<2.0 mg/dL); URINE COLOR LTYELLOW; URINE GLUCOSE (UA) NEGATIVE (NEGATIVE); URINE KETONE NEGATIVE (NEGATIVE); URINE LEUK ESTERASE NEGATIVE (NEGATIVE); URINE NITRITE NEGATIVE (NEGATIVE); URINE PROTEIN NEGATIVE (NEGATIVE); URINE UROBILINOGEN NEGATIVE mg/dL (0.2-1.0)
== END 2018-02-02 12:51 | disposition other institution (70) | DRG 773 ==
LOC: YASAS 13:23 → Y6N 15:32
PROVIDERS: ADMIT Surgery; ATTEND Surgery
PROC: HZ2ZZZZ Detoxification Services for Substance Abuse Treatment (ICD-10-PCS; principal; 2018-01-28)
DX: F11.23 Opioid dependence with withdrawal (principal); F10.230 Alcohol dependence with withdrawal, uncomplicated; F14.20 Cocaine dependence, uncomplicated; F12.20 Cannabis dependence, uncomplicated; F17.213 Nicotine dependence, cigarettes, with withdrawal; F31.30 Bipolar disorder, current episode depressed, mild or moderate severity, unspecified; F19.24 Other psychoactive substance dependence with psychoactive substance-induced mood disorder; F19.282 Other psychoactive substance dependence with psychoactive substance-induced sleep disorder; I10 Essential (primary) hypertension; E86.0 Dehydration; K21.9 Gastro-esophageal reflux disease without esophagitis; M54.5 Low back pain; G89.29 Other chronic pain; Z91.5 Personal history of self-harm
CPT/HCPCS: 36415; 80053; 81003; 85027; 86593; 93005; 93010; Q0162

== ENCOUNTER 2018-02-02 14:09 | Inpatient (IN) | payer OTHER ==
--- NOTE | 2018-02-02 15:58 | PN ---
[facility] Progress Note Note: Psychiatric nurse practitioner: Pt. seen by Dr. Stern while in detox. Chart reviewed. Will order patient's seroquel 100mg qhs. Verbal consent given. Nursing staff informed.
[2018-02-02] MEDS ORDERED: IBUPROFEN 400 MG TABLET (FP) PO PRN (18:07)
[2018-02-02] MEDS ORDERED: P-EPHED 60MG/TRIPROLIDI 2.5MG TABLET PO PRN (18:07)
[2018-02-02] MEDS ORDERED: MAGNESIUM HYDROX 2400MG/30ML ORAL SUSPENSION 30 ML CUP PO PRN (18:07)
[2018-02-02] MEDS ORDERED: guaiFENesin/D-METHORPHAN HB 10 ML UNIT-DOSE CUPS PO PRN (18:07)
[2018-02-02] MEDS ORDERED: MAGNESIUM CITRATE 300 ML BOTTLE PO PRN (18:07)
[2018-02-02] MEDS ORDERED: MENTHOL/PHENOL 1 EACH UD MM PRN (18:07)
[2018-02-02] MEDS ORDERED: MAG HYDROX/AL HYDROX/SIMETH 30 ML UNIT-DOSE CUP PO PRN (18:07)
[2018-02-02] MEDS ORDERED: ACETAMINOPHEN 325 MG TABLET (FP) PO PRN (18:07)
[2018-02-02] MEDS ORDERED: NICOTINE POLACRILEX 2 MG GUM BUC PRN (18:07)
--- NOTE | 2018-02-02 18:10 | HP ---
[facility] Rehab Assess/Revision - Admission History Admitted to Rehab from: [facility] Date of Admission to Rehab: 02/02/18 - Vital signs Vital Signs: Vital Signs Period Temp Pulse Resp BP Sys/Montoya Pulse Ox Last 24 Hr 97.6 F 56 18 150/80 - Findings Detox History & Physical reviewed: Yes Concur with findings: Yes Inpatient Rehab Admission - Initial Determination Are CD services needed?: Yes Free of communicable disease: Yes Not in need of hospitalization: Yes - Rehab Admission Criteria Previous failed treatment: Yes Poor recovery environment: Yes Comorbidities: Yes Lacks judgement: Yes Patient is meeting Inpatient Rehab admission criteria:: Yes
[2018-02-02] MEDS: LOPERAMIDE HCL 2 MG CAPSULE PO PRN (18:57)
[2018-02-02] MEDS: THIAMINE HCL 100 MG TABLET (FP) PO SCH (21:34)
[2018-02-02] MEDS: LISINOPRIL 10 MG TABLET (FP) PO SCH (21:35)
[2018-02-02] MEDS: QUEtiapine FUMARATE 100 MG TABLET (FP) PO SCH (21:35)
[2018-02-02] MEDS ORDERED: MELATONIN 5 MG TABLETS PO PRN (22:00)
[2018-02-02] MEDS: hydrOXYzine PAMOATE 50 MG CAPSULE (FP) PO PRN (22:27)
[2018-02-03] MEDS: LOPERAMIDE HCL 2 MG CAPSULE PO PRN ×2 (01:45→09:16)
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
[2018-02-03] MEDS: PANTOPRAZOLE 40 MG TABLET (FP) PO SCH (11:02)
[2018-02-03] MEDS: VENLAFAXINE HCL 75 MG E.R. CAPSULES (FP) PO SCH (11:02)
[2018-02-03] MEDS: PRENATAL VITAMINS W/ FOLIC ACID TABLET (FP) PO SCH (11:03)
[2018-02-03] MEDS: LISINOPRIL 10 MG TABLET (FP) PO SCH ×2 (11:05→21:31)
[2018-02-03] MEDS: NICOTINE 21 MG/24 HOURS TOPICAL PATCH TD SCH (11:07)
--- NOTE | 2018-02-03 11:26 | PN ---
[facility] Progress Note Note: Vital Signs Temperature 97.6 F 02/02/18 14:26 Pulse Rate 56 L 02/02/18 14:26 Respiratory Rate 18 02/03/18 07:27 Blood Pressure 150/80 02/02/18 14:26 O2 Sat by Pulse Oximetry (%) Patient reports he was in detox and was not getting "his methadone and will like a script for suboxone upon discharge." patient also c/o of blood in stool, BM was witnessed by RN Fe, mild steak. Reference #: [id number] Others' Prescriptions Patient Name: Fausto Lomeli Date: 1965 Address: [address] [place] [address] Sex: Male Rx Written Rx Dispensed Drug Quantity Days Supply Prescriber Name 10/21/2017 10/24/2017 suboxone 8 mg-2 mg sl film 15 7 Eliz Grider Patient Aox3, no distress, irritable, no distress no adventitious breath sounds ambulating in the unit Plan: hemorrhoids: increase fluids, fiber, continue to monitor while in rehab. Patient was educated on the importance to follow up with primary care physician and schedule colonoscopy screen mild elevated BP, increase fluids, repeat v/s, continue to monitor Patient advised needs link to Suboxone program and to discuss with counselor.
[2018-02-03] MEDS ORDERED: COLLOIDAL OATMEAL 1 BAR EACH TP PRN (11:57)
[2018-02-03] MEDS: hydrOXYzine PAMOATE 50 MG CAPSULE (FP) PO PRN (21:31)
[2018-02-03] MEDS: QUEtiapine FUMARATE 100 MG TABLET (FP) PO SCH (21:31)
[2018-02-03] MEDS: THIAMINE HCL 100 MG TABLET (FP) PO SCH (21:31)
[2018-02-04 07:29] VITALS: BP 126/75; PULSE 63; TEMP 97.7
[2018-02-04] MEDS: NICOTINE 21 MG/24 HOURS TOPICAL PATCH TD SCH (11:05)
[2018-02-04] MEDS: LISINOPRIL 10 MG TABLET (FP) PO SCH (11:06)
[2018-02-04] MEDS: PANTOPRAZOLE 40 MG TABLET (FP) PO SCH (11:06)
[2018-02-04] MEDS: PRENATAL VITAMINS W/ FOLIC ACID TABLET (FP) PO SCH (11:06)
[2018-02-04] MEDS: VENLAFAXINE HCL 75 MG E.R. CAPSULES (FP) PO SCH (11:06)
== END 2018-02-04 20:40 | disposition left against medical advice (07) | DRG 770 ==
LOC: YASAS 14:09 → Y5N 14:11
PROVIDERS: ADMIT Psychiatry & Neurology Psychiatry; ATTEND Psychiatry & Neurology Psychiatry
PROC: HZ42ZZZ Group Counseling for Substance Abuse Treatment, Cognitive-Behavioral (ICD-10-PCS; principal; 2018-02-02)
DX: F11.20 Opioid dependence, uncomplicated (principal); F10.20 Alcohol dependence, uncomplicated; F14.20 Cocaine dependence, uncomplicated; F17.213 Nicotine dependence, cigarettes, with withdrawal; F19.282 Other psychoactive substance dependence with psychoactive substance-induced sleep disorder; F19.24 Other psychoactive substance dependence with psychoactive substance-induced mood disorder; F39 Unspecified mood [affective] disorder; I10 Essential (primary) hypertension; K21.9 Gastro-esophageal reflux disease without esophagitis; Z91.5 Personal history of self-harm

== ENCOUNTER 2018-04-11 10:24 | Inpatient (IN) | payer OTHER ==
[2018-04-11 11:36] VITALS: BMI 24.7
--- NOTE | 2018-04-11 11:58 | HP ---
COWS - Scale Resting Pulse: 0= DC 80 or Below Restless Observation: 1= Difficult to Sit Still Pupil Size: 0= Normal to Room Light Bone or Joint Aches: 0= None Runny Nose/ Eye Tearin= Runny Nose/Eyes GI Upset > 30mins: 0= None Tremor Observation: 0= None Yawning Observation: 0= None Anxiety or Irritability: 2=Irritable/Anxious Goose Flesh Skin: 0=Smooth Skin CIWA Score - CIWA Score Nausea/Vomitin-No Nausea/No Vomiting Muscle Tremors: None Anxiety: 2 Agitation: 1-Slight > Activity Paroxysmal Sweats: 1-Minimal Palms Moist Orientation: 0-Oriented Tacttile Disturbances: 0-None Auditory Disturbances: 0-None Visual Disturbances: 0-None Headache: 0-None Present CIWA-Ar Total Score: 4 Admission ROS [facility] - HPI Allergies/Adverse Reactions: Allergies Allergy/AdvReac Type Severity Reaction Status Date / Time No Known Allergies Allergy Verified 04/11/18 12:15 History of Present Illness: patient here requesting detox from etoh and opiate , reports latest use today 1 hr ago , in the last 6 days every day , reports has not slept in 6 days . Denies recent injuries to himself, prior detox at this facility 2 mo ago, immediate relapse after d/c . Used to have rx for percocet . heroin : 1 bundle /week , denies ivdu oxycodone : 10 mg Percocet not daily use , 2-3 when using cocaine : " no limit , when I binge , I binge " not daily , latest today cannabis use : yesterday latest use , 3 d/week etoh : in the last 6 d . " all day every day ", prior beer 2 x /week , denies seizures , blackouts , occasional tremors if not drinking . denies recent falls . methadone : denies use benzo : admits to use of Ambien , MDMA K2 - recent use PCP - " not in while " utox : thc, opi, parrish , bzo, oxy, mtd. tobacco - 2 ppd , requesting nrt w/ patch . PMHX : HTN , chronic LBP pshx : denies psych : bipolar d/o meds : did not take psych meds > 1 mo , Lisinopril - no recent rx . admits he has not seen PCP > 1 yr . has not worked in 1 week 2/2 use , prior work in [employer] . i-STOP 10/21/2017 10/24/2017 suboxone 8 mg-2 mg sl film 15 7 Eliz Grider Exam Limitations: No Limitations - Ebola screening Have you traveled outside of the country in the last 21 days: No Have you had contact with anyone from an Ebola affected area: No Have you been sick,other than usual withdrawal symptoms: No Do you have a fever: No - Review of Systems Constitutional: See HPI, Loss of Appetite EENT: reports: No Symptoms Reported, Other (many missing teeth) Respiratory: reports: No Symptoms reported Cardiac: reports: No Symptoms Reported GI: reports: No Symptoms Reported : reports: No Symptoms Reported Musculoskeletal: reports: No Symptoms Reported Integumentary: reports: No Symptoms Reported Neuro: reports: No Symptoms reported Endocrine: reports: No Symptoms Reported Psychiatric: reports: Judgement Intact, Orientated x3, other (psych consult) Patient History - Patient Medical History Hx Anemia: No Hx Asthma: No Hx Chronic Obstructive Pulmonary Disease (COPD): No Hx Cancer: No Hx Cardiac Disorders: No Hx Congestive Heart Failure: No Hx Hypertension: Yes (ON MEDS) Hx Hypercholesterolemia: No Hx Pacemaker: No HX Cerebrovascular Accident: No Hx Seizures: No Hx Dementia: No Hx Diabetes: No Hx Gastrointestinal Disorders: Yes (PT. REPORTED HISTORY GERD) Hx Liver Disease: No Hx Genitourinary Disorders: No Hx Sexually Transmitted Disorders: No Hx Renal Disease (ESRD): No Hx Thyroid Disease: No Hx Human Immunodeficiency Virus (HIV): No Hx Hepatitis C: No Hx Depression: Yes Hx Suicide Attempt: No Hx Bipolar Disorder: Yes (Takes med.) Hx Schizophrenia: No - Patient Surgical History Past Surgical History: No Hx Neurologic Surgery: No Hx Cataract Extraction: No Hx Cardiac Surgery: No Hx Lung Surgery: No Hx Breast Surgery: No Hx Breast Biopsy: No Hx Abdominal Surgery: No Hx Appendectomy: No Hx Cholecystectomy: No Hx Genitourinary Surgery: No Hx Section: No Hx Orthopedic Surgery: No Anesthesia Reaction: No - PPD History Date: 01/30/18 Results: 0 mm. - Smoking Cessation Smoking history: Current every day smoker Have you smoked in the past 12 months: Yes Aproximately how many cigarettes per day: 20 Cigars Per Day: 0 Hx Chewing Tobacco Use: No Initiated information on smoking cessation: No Family Disease History - Family Disease History Family Disease History: Diabetes: Father (, hx etoh/drugs), Heart Disease: Mother (living, ), Other: Father, Mother, Brother (six - healthy) Admission Physical Exam [facility] - Vital Signs Vital Signs: Vital Signs - 24 hr 04/11/18 11:34 Temperature 98.9 F Pulse Rate 75 Respiratory 17 Rate Blood Pressure 172/94 H - Physical General Appearance: Yes: Nourished, Appropriately Dressed, Mild Distress, Anxious HEENTM: Yes: Within Normal Limits, EOMI, Hearing grossly Normal, Normal ENT Inspection, Normocephalic, Normal Voice, COMFORT, Pharynx Normal, Other (poor dentition) Respiratory: Yes: Chest Non-Tender, Lungs Clear, Normal Breath Sounds, No Respiratory Distress, No Accessory Muscle Use Neck: Yes: Within Normal Limits, No masses,lesions,Nodules, Trachea in good position Cardiology: Yes: Regular Rhythm, Regular Rate, S1, S2, Diastolic Murmur Abdominal: Yes: Within Normal Limits, Normal Bowel Sounds, Non Tender, Flat, Soft Genitourinary: Yes: Within Normal Limits Back: Yes: Within Normal Limits, Normal Inspection Musculoskeletal: Yes: Within Normal Limits, full range of Motion, Gait Steady, Pelvis Stable Extremities: Yes: Within Normal Limits, Normal Capillary Refill, Normal Inspection, Normal Range of Motion, Non-Tender Neurological: Yes: Within Normal Limits, Fully Oriented, Alert, Motor Strength 5 /5, Normal Mood/Affect, Normal Response Integumentary: Yes: Normal Color, Dry, Warm - Diagnostic (1) Alcohol dependence with uncomplicated withdrawal Current Visit: No Status: Acute (2) Cocaine dependence Current Visit: No Status: Acute Qualifiers: Complication of substance-induced condition: uncomplicated (3) Nicotine dependence Current Visit: No Status: Acute Qualifiers: Nicotine product type: cigarettes Substance use status: in withdrawal Qualified Code(s): F17.213 - Nicotine dependence, cigarettes, with withdrawal (4) Opioid dependence with withdrawal Current Visit: No Status: Acute (5) Back pain, chronic Current Visit: No Status: Chronic Qualifiers: Back pain location: low back pain Back pain laterality: unspecified Sciatica presence: without sciatica Qualified Code(s): M54.5 - Low back pain; G89.29 - Other chronic pain (6) Cannabis dependence, uncomplicated Current Visit: No Status: Chronic BHS Breath Alcohol Content Breath Alcohol Content: 0 Urine Drug Screen - Results Drug Screen Negative: No Urine Drug Screen Results: THC-Marijuana, PARRISH-Cocaine, OPI-Opiates, BZO- Benzodiazepines, MTD-Methadone, OXY-Oxycodone
[2018-04-11] MEDS ORDERED: chlordiazePOXIDE HCL 10 MG CAPSULE PO PRN (12:08)
[2018-04-11] MEDS ORDERED: MAGNESIUM HYDROX 2400MG/30ML ORAL SUSPENSION 30 ML CUP PO PRN (12:08)
[2018-04-11] MEDS ORDERED: IBUPROFEN 400 MG TABLET (FP) PO PRN (12:08)
[2018-04-11] MEDS ORDERED: LOPERAMIDE HCL 2 MG CAPSULE PO PRN (12:08)
[2018-04-11] MEDS ORDERED: MAGNESIUM CITRATE 300 ML BOTTLE PO PRN (12:08)
[2018-04-11] MEDS ORDERED: P-EPHED 60MG/TRIPROLIDI 2.5MG TABLET PO PRN (12:08)
[2018-04-11] MEDS ORDERED: guaiFENesin/D-METHORPHAN HB 10 ML UNIT-DOSE CUPS PO PRN (12:08)
[2018-04-11] MEDS ORDERED: ACETAMINOPHEN 325 MG TABLET (FP) PO PRN (12:08)
[2018-04-11] MEDS ORDERED: MENTHOL/PHENOL 1 EACH UD MM PRN (12:08)
[2018-04-11] MEDS ORDERED: METHADONE HCL 10 MG TABLET (FOR DETOX USE ONLY) PO ONE ×2 (14:36→23:00)
--- NOTE | 2018-04-11 16:04 | EKG ---
Test Reason : Blood Pressure : / mmHG Vent. Rate : 064 BPM Atrial Rate : 064 BPM P-R Int : 136 ms QRS Dur : 090 ms QT Int : 392 ms P-R-T Axes : 072 062 028 degrees QTc Int : 404 ms NORMAL SINUS RHYTHM NORMAL ECG WHEN COMPARED WITH ECG OF 28-JAN-2018 17:42, NO SIGNIFICANT CHANGE WAS FOUND Confirmed by Vishal Syed MD ([id number]) on 04/11/2018 4:03:54 PM Referred By: Confirmed By:Vishal Syed MD
[2018-04-11] MEDS: chlordiazePOXIDE HCL 25 MG CAPSULE PO SCH ×2 (16:57→22:21)
--- NOTE | 2018-04-11 17:05 | PN ---
S Progress Note Note: Vital Signs Temperature 98.9 F 04/11/18 11:34 Pulse Rate 75 04/11/18 11:34 Respiratory Rate 17 04/11/18 11:34 Blood Pressure 172/94 H 04/11/18 11:34 O2 Sat by Pulse Oximetry (%) asymptomatic elevated BP one time clonidine 0.1 mg ordered increase PO fluids continue to monitor
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
[2018-04-11] MEDS ORDERED: cloNIDine HCL 0.1 MG TABLET PO ONE (17:30)
[2018-04-11 18:03] LABS: URINE APPEARANCE CLEAR; URINE BILIRUBIN NEGATIVE (<2.0 mg/dL); URINE COLOR DKYELLOW; URINE GLUCOSE (UA) NEGATIVE (NEGATIVE); URINE KETONE TRACE (NEGATIVE); URINE LEUK ESTERASE NEGATIVE (NEGATIVE); URINE NITRITE NEGATIVE (NEGATIVE); URINE UROBILINOGEN 4.0 E.U/dl mg/dL (0.2-1.0)
[2018-04-11 18:16] LABS: URINE PROTEIN 1+ (NEGATIVE)
[2018-04-11 18:44] LABS: URINE BACTERIA FEW /hpf (NONE SEEN); URINE MUCUS RARE
[2018-04-11] MEDS: THIAMINE HCL 100 MG TABLET (FP) PO SCH (21:43)
[2018-04-11] MEDS: QUEtiapine FUMARATE 100 MG TABLET (FP) PO SCH (21:43)
[2018-04-11] MEDS: MAG HYDROX/AL HYDROX/SIMETH 30 ML UNIT-DOSE CUP PO PRN (21:43)
[2018-04-11] MEDS ORDERED: MELATONIN 5 MG TABLETS PO PRN (22:00)
[2018-04-12] MEDS: chlordiazePOXIDE HCL 25 MG CAPSULE PO SCH ×2 (06:29→10:31)
[2018-04-12] MEDS ORDERED: METHADONE HCL 10 MG TABLET (FOR DETOX USE ONLY) PO SCH (10:00)
[2018-04-12 10:30] LABS: HEMATOCRIT 40.4 % (35.4-49); HEMOGLOBIN 13.5 GM/dL (11.7-16.9); MCH 31.7 pg (25.7-33.7); MCHC 33.4 g/dl (32.0-35.9); MEAN CELL VOLUME 94.8 fl (80-96); MEAN PLT VOLUME 9.7 fl (7.5-11.1); PLATELET COUNT 195 K/MM3 (134-434); RBC 4.26 M/mm3 (4.00-5.60); RDW 12.8 % (11.9-15.9)
[2018-04-12] MEDS: PRENATAL VITAMINS W/ FOLIC ACID TABLET (FP) PO SCH (10:31)
[2018-04-12] MEDS: NICOTINE 7 MG/24 HOURS TOPICAL PATCH TD SCH (10:32)
[2018-04-12 11:25] LABS: ALBUMIN 3.8 g/dl (3.4-5.0); ALK PHOS 84 U/L (45-117); ANION GAP 8 MMOL/L (8-16); BILIRUBIN,TOTAL 0.6 mg/dL (0.2-1); BLOOD UREA NITROGEN 15 mg/dL (7-18); CALCIUM 9.1 mg/dL (8.5-10.1); CHLORIDE 106 mmol/L (98-107); CO2 28 mmol/L (21-32); CREATININE 1.1 mg/dL (0.55-1.3); GLUCOSE,RANDOM 106 mg/dL (74-106); POTASSIUM 4.1 mmol/L (3.5-5.1); SGOT/AST 26 U/L (15-37); SGPT/ALT 23 U/L (13-61); SODIUM 141 mmol/L (136-145)
[2018-04-12] MEDS ORDERED: FLU VACCINE QUAD 60 MCG/0.5 ML (MDV 18-19) IM ONE (12:00)
--- NOTE | 2018-04-12 14:41 | PN ---
[facility] CIWA - CIWA Score Nausea/Vomitin-Mild Nausea/No Vomiting Muscle Tremors: 4-Moderate,w/Arms Extend Anxiety: 4-Mod. Anxious/Guarded Agitation: 4-Moderately Restless Paroxysmal Sweats: 3 Orientation: 0-Oriented Tacttile Disturbances: 0-None Auditory Disturbances: 0-None Visual Disturbances: 0-None Headache: 1-Very Mild CIWA-Ar Total Score: 17 [facility] COWS - Scale Resting Pulse: 0= [place] 80 or Below Sweatin= Chills/Flushing Restless Observation: 3= Extraneous Movement Pupil Size: 1= Pupils >than Normal Bone or Joint Aches: 2= Severe Diffuse Aches Runny Nose/ Eye Tearin= Runny Nose/Eyes GI Upset > 30mins: 2= Nausea/Diarrhea Tremor Observation of Outstretched Hands: 2= Slight Tremor Visible Yawning Observation: 1= 1-2x During Session Anxiety or Irritability: 2=Irritable/Anxious Goose Flesh Skin: 0=Smooth Skin COWS Score: 16 [facility] Progress Note (SOAP) Subjective: Sweating, tremor, chills, loose stool Objective: 04/12/18 14:46 Last Vital Signs Temp Pulse Resp BP Pulse Ox 97.6 F 68 18 162/82 04/12/18 13:38 04/12/18 13:38 04/12/18 13:38 04/12/18 13:38 H/O HTN: presently uncontrolled, was on lisinopril 10mg PO bid Laboratory Tests 04/11/18 04/12/18 04/12/18 16:30 06:00 06:00 WBC 9.0 RBC 4.26 Hgb 13.5 Hct 40.4 MCV 94.8 MCH 31.7 MCHC 33.4 RDW 12.8 Plt Count 195 MPV 9.7 Sodium 141 Potassium 4.1 Chloride 106 Carbon Dioxide 28 Anion Gap 8 BUN 15 Creatinine 1.1 Creat Clearance w eGFR > 60 Random Glucose 106 Calcium 9.1 Total Bilirubin 0.6 AST 26 ALT 23 Alkaline Phosphatase 84 Total Protein 7.0 Albumin 3.8 Urine Color Dkyellow Urine Appearance Clear Urine pH 5.0 D Ur Specific [place] 1.031 Urine Protein 1+ H Urine Glucose (UA) Negative Urine Ketones Trace H Urine Blood Negative Urine Nitrite Negative Urine Bilirubin Negative Urine Urobilinogen 4.0 e.u/dl Ur Leukocyte Esterase Negative Urine WBC (Auto) 1 Urine RBC (Auto) 2 Urine Bacteria Few Urine Mucus Rare RPR Titer 04/12/18 06:00 WBC RBC Hgb Hct MCV MCH MCHC RDW Plt Count MPV Sodium Potassium Chloride Carbon Dioxide Anion Gap BUN Creatinine Creat Clearance w eGFR Random Glucose Calcium Total Bilirubin AST ALT Alkaline Phosphatase Total Protein Albumin Urine Color Urine Appearance Urine pH Ur Specific [place] Urine Protein Urine Glucose (UA) Urine Ketones Urine Blood Urine Nitrite Urine Bilirubin Urine Urobilinogen Ur Leukocyte Esterase Urine WBC (Auto) Urine RBC (Auto) Urine Bacteria Urine Mucus RPR Titer Nonreactive Labs reviewed: abnormal UA Assessment: 04/12/18 14:47 Withdrawal sxs Noted with uncontrolled HTN and abnormal UA Plan: Continue detox Uncontrolled HTN: resume lisinopril 10mg PO bid starting tomorrow, give lisinopril 20mg PO x 1 dose, continue to monitor b/p Abnormal UA: Encouraged PO water intake, repeat UA
[2018-04-12] MEDS ORDERED: LISINOPRIL 20 MG TABLET (FP) PO ONE (14:51)
[2018-04-12] MEDS: chlordiazePOXIDE 5 MG CAPSULE PO SCH ×2 (17:32→22:03)
[2018-04-12] MEDS: MAG HYDROX/AL HYDROX/SIMETH 30 ML UNIT-DOSE CUP PO PRN (17:34)
[2018-04-12] MEDS ORDERED: LISINOPRIL 10 MG TABLET (FP) PO ONE (21:14)
[2018-04-12] MEDS ORDERED: cloNIDine HCL 0.1 MG TABLET PO ONE (21:16)
--- NOTE | 2018-04-12 21:17 | PN ---
S Progress Note Note: Report received from BYRON posada re: patient with elevated BP 172/92 one time dose clonidine ordered low sodium diet increase PO fluids continue to monitor
[2018-04-12] MEDS ORDERED: PANTOPRAZOLE 40 MG TABLET (FP) PO ONE (21:57)
[2018-04-12] MEDS: THIAMINE HCL 100 MG TABLET (FP) PO SCH (22:03)
[2018-04-12] MEDS: QUEtiapine FUMARATE 100 MG TABLET (FP) PO SCH (22:04)
[2018-04-13] MEDS: chlordiazePOXIDE 5 MG CAPSULE PO SCH ×2 (06:11→10:20)
[2018-04-13] MEDS ORDERED: METHADONE HCL 5 MG TABLET (FOR DETOX USE ONLY) PO SCH (10:00)
[2018-04-13] MEDS: PRENATAL VITAMINS W/ FOLIC ACID TABLET (FP) PO SCH (10:20)
[2018-04-13] MEDS: LISINOPRIL 10 MG TABLET (FP) PO SCH ×2 (10:20→22:04)
[2018-04-13] MEDS: NICOTINE 7 MG/24 HOURS TOPICAL PATCH TD SCH (10:21)
--- NOTE | 2018-04-13 13:24 | PN ---
[facility] CIWA - CIWA Score Nausea/Vomitin Muscle Tremors: 3 Anxiety: 3 Agitation: 3 Paroxysmal Sweats: 3 Orientation: 0-Oriented Tacttile Disturbances: 0-None Auditory Disturbances: 0-None Visual Disturbances: 0-None Headache: 1-Very Mild CIWA-Ar Total Score: 15 [facility] COWS - Scale Resting Pulse: 0= ID 80 or Below Sweatin= Chills/Flushing Restless Observation: 3= Extraneous Movement Pupil Size: 0= Normal to Room Light Bone or Joint Aches: 2= Severe Diffuse Aches Runny Nose/ Eye Tearin= Runny Nose/Eyes GI Upset > 30mins: 2= Nausea/Diarrhea Tremor Observation of Outstretched Hands: 2= Slight Tremor Visible Yawning Observation: 1= 1-2x During Session Anxiety or Irritability: 2=Irritable/Anxious Goose Flesh Skin: 0=Smooth Skin COWS Score: 15 [facility] Progress Note (SOAP) Subjective: Tremor, diarrhea, interrupted sleep, stomach cramp Objective: 04/13/18 13:23 Last Vital Signs Temp Pulse Resp BP Pulse Ox 97.4 F L 65 18 136/74 04/13/18 09:30 04/13/18 09:30 04/13/18 09:30 04/13/18 09:30 Laboratory Tests 04/11/18 04/12/18 04/12/18 16:30 06:00 06:00 WBC 9.0 RBC 4.26 Hgb 13.5 Hct 40.4 MCV 94.8 MCH 31.7 MCHC 33.4 RDW 12.8 Plt Count 195 MPV 9.7 Sodium 141 Potassium 4.1 Chloride 106 Carbon Dioxide 28 Anion Gap 8 BUN 15 Creatinine 1.1 Creat Clearance w eGFR > 60 Random Glucose 106 Calcium 9.1 Total Bilirubin 0.6 AST 26 ALT 23 Alkaline Phosphatase 84 Total Protein 7.0 Albumin 3.8 Urine Color Dkyellow Urine Appearance Clear Urine pH 5.0 D Ur Specific [place] 1.031 Urine Protein 1+ H Urine Glucose (UA) Negative Urine Ketones Trace H Urine Blood Negative Urine Nitrite Negative Urine Bilirubin Negative Urine Urobilinogen 4.0 e.u/dl Ur Leukocyte Esterase Negative Urine WBC (Auto) 1 Urine RBC (Auto) 2 Urine Bacteria Few Urine Mucus Rare RPR Titer 04/12/18 06:00 WBC RBC Hgb Hct MCV MCH MCHC RDW Plt Count MPV Sodium Potassium Chloride Carbon Dioxide Anion Gap BUN Creatinine Creat Clearance w eGFR Random Glucose Calcium Total Bilirubin AST ALT Alkaline Phosphatase Total Protein Albumin Urine Color Urine Appearance Urine pH Ur Specific [place] Urine Protein Urine Glucose (UA) Urine Ketones Urine Blood Urine Nitrite Urine Bilirubin Urine Urobilinogen Ur Leukocyte Esterase Urine WBC (Auto) Urine RBC (Auto) Urine Bacteria Urine Mucus RPR Titer Nonreactive Labs reviewed Assessment: 04/13/18 13:24 Withdrawal sxs Plan: Continue detox
[2018-04-13 14:50] LABS: URINE APPEARANCE CLEAR; URINE BILIRUBIN NEGATIVE (<2.0 mg/dL); URINE COLOR YELLOW; URINE GLUCOSE (UA) NEGATIVE (NEGATIVE); URINE KETONE NEGATIVE (NEGATIVE); URINE LEUK ESTERASE NEGATIVE (NEGATIVE); URINE NITRITE NEGATIVE (NEGATIVE); URINE PROTEIN NEGATIVE (NEGATIVE); URINE UROBILINOGEN NEGATIVE mg/dL (0.2-1.0)
[2018-04-13] MEDS: chlordiazePOXIDE HCL 10 MG CAPSULE PO SCH ×2 (17:28→22:04)
[2018-04-13] MEDS: THIAMINE HCL 100 MG TABLET (FP) PO SCH (22:04)
[2018-04-13] MEDS: QUEtiapine FUMARATE 100 MG TABLET (FP) PO SCH (22:04)
[2018-04-14] MEDS: chlordiazePOXIDE HCL 10 MG CAPSULE PO SCH ×2 (05:30→10:29)
[2018-04-14] MEDS ORDERED: METHADONE HCL 10 MG TABLET (FOR DETOX USE ONLY) PO SCH (10:00)
[2018-04-14] MEDS: PRENATAL VITAMINS W/ FOLIC ACID TABLET (FP) PO SCH (10:29)
[2018-04-14] MEDS: NICOTINE 7 MG/24 HOURS TOPICAL PATCH TD SCH (10:29)
[2018-04-14] MEDS: LISINOPRIL 10 MG TABLET (FP) PO SCH ×2 (10:29→22:11)
[2018-04-14] MEDS: MAG HYDROX/AL HYDROX/SIMETH 30 ML UNIT-DOSE CUP PO PRN (10:38)
--- NOTE | 2018-04-14 16:08 | PN ---
[facility] Progress Note (SOAP) Subjective: Tremor, blurry vision, chills, sweating, interrupted sleep Objective: 04/14/18 16:06 Last Vital Signs Temp Pulse Resp BP Pulse Ox 97.0 F L 60 17 135/79 04/14/18 13:36 04/14/18 13:36 04/14/18 13:36 04/14/18 13:36 Laboratory Tests 04/11/18 04/12/18 04/12/18 16:30 06:00 06:00 WBC 9.0 RBC 4.26 Hgb 13.5 Hct 40.4 MCV 94.8 MCH 31.7 MCHC 33.4 RDW 12.8 Plt Count 195 MPV 9.7 Sodium 141 Potassium 4.1 Chloride 106 Carbon Dioxide 28 Anion Gap 8 BUN 15 Creatinine 1.1 Creat Clearance w eGFR > 60 Random Glucose 106 Calcium 9.1 Total Bilirubin 0.6 AST 26 ALT 23 Alkaline Phosphatase 84 Total Protein 7.0 Albumin 3.8 Urine Color Dkyellow Urine Appearance Clear Urine pH 5.0 D Ur Specific [place] 1.031 Urine Protein 1+ H Urine Glucose (UA) Negative Urine Ketones Trace H Urine Blood Negative Urine Nitrite Negative Urine Bilirubin Negative Urine Urobilinogen 4.0 e.u/dl Ur Leukocyte Esterase Negative Urine WBC (Auto) 1 Urine RBC (Auto) 2 Urine Bacteria Few Urine Mucus Rare RPR Titer 04/12/18 04/13/18 06:00 11:30 WBC RBC Hgb Hct MCV MCH MCHC RDW Plt Count MPV Sodium Potassium Chloride Carbon Dioxide Anion Gap BUN Creatinine Creat Clearance w eGFR Random Glucose Calcium Total Bilirubin AST ALT Alkaline Phosphatase Total Protein Albumin Urine Color Yellow Urine Appearance Clear Urine pH 5.0 Ur Specific [place] 1.018 Urine Protein Negative Urine Glucose (UA) Negative Urine Ketones Negative Urine Blood Negative Urine Nitrite Negative Urine Bilirubin Negative Urine Urobilinogen Negative Ur Leukocyte Esterase Negative Urine WBC (Auto) Urine RBC (Auto) Urine Bacteria Urine Mucus RPR Titer Nonreactive Labs reviewed Assessment: 04/14/18 16:08 Withdrawal sxs Plan: Continue detox
[2018-04-14] MEDS: QUEtiapine FUMARATE 100 MG TABLET (FP) PO SCH (22:11)
[2018-04-14] MEDS: THIAMINE HCL 100 MG TABLET (FP) PO SCH (22:11)
[2018-04-15] MEDS ORDERED: METHADONE HCL 5 MG TABLET (FOR DETOX USE ONLY) PO SCH (06:00)
[2018-04-15 06:52] VITALS: BP 112/64; PULSE 59; TEMP 97.9
--- NOTE | 2018-04-15 08:41 | DS ---
[facility] Detox Discharge Summary Admission Date: 04/11/18 Discharge Date: 04/15/18 - History Present History: Alcohol Dependence, Opioid Dependence Additional Comments: Patient to follow up with primary care provider in 1 -2 weeks Pertinent Past History: Vital Signs Temperature 97.9 F 04/15/18 06:52 Pulse Rate 59 L 04/15/18 06:52 Respiratory Rate 18 04/15/18 06:52 Blood Pressure 112/64 04/15/18 06:52 O2 Sat by Pulse Oximetry (%) Laboratory Last Values WBC 9.0 K/mm3 (4.0-10.0) 04/12/18 06:00 RBC 4.26 M/mm3 (4.00-5.60) 04/12/18 06:00 Hgb 13.5 GM/dL (11.7-16.9) 04/12/18 06:00 Hct 40.4 % (35.4-49) 04/12/18 06:00 MCV 94.8 fl (80-96) 04/12/18 06:00 MCH 31.7 pg (25.7-33.7) 04/12/18 06:00 MCHC 33.4 g/dl (32.0-35.9) 04/12/18 06:00 RDW 12.8 % (11.9-15.9) 04/12/18 06:00 Plt Count 195 K/MM3 (134-434) 04/12/18 06:00 MPV 9.7 fl (7.5-11.1) 04/12/18 06:00 Sodium 141 mmol/L (136-145) 04/12/18 06:00 Potassium 4.1 mmol/L (3.5-5.1) 04/12/18 06:00 Chloride 106 mmol/L (98-107) 04/12/18 06:00 Carbon Dioxide 28 mmol/L (21-32) 04/12/18 06:00 Anion Gap 8 MMOL/L (8-16) 04/12/18 06:00 BUN 15 mg/dL (7-18) 04/12/18 06:00 Creatinine 1.1 mg/dL (0.55-1.3) 04/12/18 06:00 Creat Clearance w eGFR > 60 (>60) 04/12/18 06:00 Random Glucose 106 mg/dL (74-106) 04/12/18 06:00 Calcium 9.1 mg/dL (8.5-10.1) 04/12/18 06:00 Total Bilirubin 0.6 mg/dL (0.2-1) 04/12/18 06:00 AST 26 U/L (15-37) 04/12/18 06:00 ALT 23 U/L (13-61) 04/12/18 06:00 Alkaline Phosphatase 84 U/L (45-117) 04/12/18 06:00 Total Protein 7.0 g/dl (6.4-8.2) 04/12/18 06:00 Albumin 3.8 g/dl (3.4-5.0) 04/12/18 06:00 Urine Color Yellow 04/13/18 11:30 Urine Appearance Clear 04/13/18 11:30 Urine pH 5.0 (5.0-8.0) 04/13/18 11:30 Ur Specific [place] 1.018 (1.004-1.035) 04/13/18 11:30 Urine Protein Negative (NEGATIVE) 04/13/18 11:30 Urine Glucose (UA) Negative (NEGATIVE) 04/13/18 11:30 Urine Ketones Negative (NEGATIVE) 04/13/18 11:30 Urine Blood Negative (NEGATIVE) 04/13/18 11:30 Urine Nitrite Negative (NEGATIVE) 04/13/18 11:30 Urine Bilirubin Negative (<2.0 mg/dL) 04/13/18 11:30 Urine Urobilinogen Negative mg/dL (0.2-1.0) 04/13/18 11:30 Ur Leukocyte Esterase Negative (NEGATIVE) 04/13/18 11:30 Urine WBC (Auto) 1 /hpf (3-5) 04/11/18 16:30 Urine RBC (Auto) 2 /hpf (0-3) 04/11/18 16:30 Urine Bacteria Few /hpf (NONE SEEN) 04/11/18 16:30 Urine Mucus Rare 04/11/18 16:30 RPR Titer Nonreactive (NONREACTIVE) 04/12/18 06:00 - Physical Exam Results Vital Signs: Vital Signs Temperature 97.9 F 04/15/18 06:52 Pulse Rate 59 L 04/15/18 06:52 Respiratory Rate 18 04/15/18 06:52 Blood Pressure 112/64 04/15/18 06:52 O2 Sat by Pulse Oximetry (%) - Treatment Hospital Course: Detox Protocol Followed, Detoxed Safely, Responded well, Discharged Condition Good Patient has Accepted a Rehab Referral to: follow up with out patient programs - Medication Discharge Medications: Ambulatory Orders Venlafaxine HCl ER [Effexor Xr -] 75 mg PO DAILY #30 cap.er.24h 05/15/17 Quetiapine Fumarate [Seroquel] 100 mg PO HS #30 tablet 07/02/17 Pantoprazole Sodium [Protonix -] 40 mg PO DAILY #30 tab 07/16/17 Lisinopril [Prinivil] 10 mg PO BID #30 tablet 02/02/18 Lisinopril 04/11/18 Lisinopril [Prinivil] 10 mg PO BID #30 tablet 04/15/18 - Diagnosis (1) Alcohol dependence with uncomplicated withdrawal Status: Acute (2) Opioid dependence with withdrawal Status: Acute (3) Cocaine dependence, uncomplicated Status: Chronic (4) GERD (gastroesophageal reflux disease) Status: Chronic Qualifiers: Esophagitis presence: esophagitis presence not specified Qualified Code(s) : K21.9 - Gastro-esophageal reflux disease without esophagitis
== END 2018-04-15 09:28 | disposition home or self-care (01) | DRG 773 ==
LOC: YASAS 10:24 → Y3N 13:26
PROC: HZ2ZZZZ Detoxification Services for Substance Abuse Treatment (ICD-10-PCS; principal; 2018-04-11)
DX: F11.23 Opioid dependence with withdrawal (principal); F10.230 Alcohol dependence with withdrawal, uncomplicated; F14.20 Cocaine dependence, uncomplicated; F12.20 Cannabis dependence, uncomplicated; F17.213 Nicotine dependence, cigarettes, with withdrawal; F19.24 Other psychoactive substance dependence with psychoactive substance-induced mood disorder; F31.9 Bipolar disorder, unspecified; G47.00 Insomnia, unspecified; I10 Essential (primary) hypertension; K21.9 Gastro-esophageal reflux disease without esophagitis; M54.5 Low back pain; G89.29 Other chronic pain; Z91.5 Personal history of self-harm; Z91.19 Patient's noncompliance with other medical treatment and regimen
CPT/HCPCS: 36415; 80053; 81003; 81015; 85027; 86593; 90688; 93005; 93010; G0008; J0735

== ENCOUNTER 2019-02-05 10:53 | Inpatient (IN) | payer OTHER ==
--- NOTE | 2019-02-05 13:21 | HP ---
COWS - Scale Resting Pulse: 0= [place] 80 or Below Sweatin= Chills/Flushing Restless Observation: 1= Difficult to Sit Still Pupil Size: 2= Moderately Dilated Bone or Joint Aches: 2= Severe Diffuse Aches Runny Nose/ Eye Tearin= Nasal Congestion GI Upset > 30mins: 1= Stomach Cramp Tremor Observation: 1= Tremor [place], Not Seen Yawning Observation: 1= 1-2x During Session Anxiety or Irritability: 2=Irritable/Anxious Goose Flesh Skin: 0=Smooth Skin COWS Score: 12 CIWA Score Nausea/Vomitin Muscle Tremors: 1-None Visible, but [place] Anxiety: 1-Mildly Anxious Agitation: 1-Slight > Activity Paroxysmal Sweats: 1-Minimal Palms Moist Orientation: 1-Uncertain about Date Tacttile Disturbances: 1-Very Mild Itch/Numbness Auditory Disturbances: 0-None Visual Disturbances: 0-None - Admission Criteria OASAS Guidelines: Admission for Medically Managed Detox: Requires at least one of the followin. CIWA greater than 12 2. Seizures within the past 24 hours 3. Delirium tremens within the past 24 hours 4. Hallucinations within the past 24 hours 5. Acute intervention needed for co occurring medical disorder 6. Acute intervention needed for co occurring psychiatric disorder 7. Severe withdrawal that cannot be handled at a lower level of care (continued vomiting, continued diarrhea, abnormal vital signs) requiring intravenous medication and/or fluids 8. Admission [facility] Chief Complaint: "I am here to get detox from heroin and alcohol" Allergies/Adverse Reactions: Allergies Allergy/AdvReac Type Severity Reaction Status Date / Time No Known Allergies Allergy Verified 04/11/18 12:15 History of Present Illness: Patient is a 53 year old black male with history of opioid and alcohol dependence. Patient has been in detox in the past 2 months ago. He did not continue to do rehab. He currently uses 2 bundles per day about 3-6 times per week. He last used yesterday evening. Alcohol he uses 1/2 pint per day. See substance use history. Patient qualifies for detox for alcohol and opioid detox. Patient denies legal issues. 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 PSurgical History: None Allergies: None Shx: no illicited. FHX; significant for father passing away from alcohol and drugs. He wants to enter detox and then follow up with rehab this time. Exam Limitations: No Limitations - Ebola screening Have you traveled outside of the country in the last 21 days: No Have you had contact with anyone from an Ebola affected area: No Have you been sick,other than usual withdrawal symptoms: No Do you have a fever: No - Review of Systems Constitutional: Chills, Loss of Appetite, Changes in sleep EENT: reports: No Symptoms Reported, Blurred Vision Respiratory: reports: Cough Cardiac: reports: No Symptoms Reported GI: reports: Abdominal cramping Musculoskeletal: reports: No Symptoms Reported Integumentary: reports: Dryness Neuro: reports: No Symptoms reported, See HPI Endocrine: reports: No Symptoms Reported Hematology: reports: No Symptoms Reported Psychiatric: reports: Judgement Intact, Mood/Affect Appropiate, Orientated x3 ( Patient states he has a cough and saw an urgicenter doctor that gave him an antibiotic which he took but doesn't know what it is.) Patient History - Patient Medical History Hx Anemia: No Hx Asthma: No Hx Chronic Obstructive Pulmonary Disease (COPD): No Hx Cancer: No Hx Cardiac Disorders: No Hx Congestive Heart Failure: No Hx Hypertension: Yes (ON MEDS) Hx Hypercholesterolemia: No Hx Pacemaker: No HX Cerebrovascular Accident: No Hx Seizures: No Hx Dementia: No Hx Diabetes: No Hx Gastrointestinal Disorders: Yes (PT. REPORTED HISTORY GERD) Hx Liver Disease: No Hx Genitourinary Disorders: No Hx Sexually Transmitted Disorders: No Hx Renal Disease (ESRD): No Hx Thyroid Disease: No Hx Human Immunodeficiency Virus (HIV): No Hx Hepatitis C: No Hx Depression: Yes Hx Suicide Attempt: No Hx Bipolar Disorder: Yes (Takes med.) Hx Schizophrenia: No - Patient Surgical History Past Surgical History: No Hx Neurologic Surgery: No Hx Cataract Extraction: No Hx Cardiac Surgery: No Hx Lung Surgery: No Hx Breast Surgery: No Hx Breast Biopsy: No Hx Abdominal Surgery: No Hx Appendectomy: No Hx Cholecystectomy: No Hx Genitourinary Surgery: No Hx Section: No Hx Orthopedic Surgery: No Anesthesia Reaction: No - PPD History Date: 01/30/18 Results: 0 mm. - Smoking Cessation Smoking history: Current every day smoker Have you smoked in the past 12 months: Yes Aproximately how many cigarettes per day: 20 Cigars Per Day: 0 Hx Chewing Tobacco Use: No Initiated information on smoking cessation: No 'Breaking Loose' booklet given: 02/05/19 - Substance & Tx. History Hx Alcohol Use: Yes (see history) Hx Substance Use: Yes Substance Use Type: Alcohol, Cocaine, Heroin, Opiates Hx Substance Use Treatment: Yes (was in a suboxone treatment but then discontinued) - Substances abused Heroin Substance route: Inhalation Frequency: 3-6 times per week Amount used: 3 bags Age of first use: 23 Date of last use: 02/05/19 Alcohol Substance route: Oral Frequency: 1-2 times per week Amount used: 1/2 pint Age of first use: 16 Date of last use: 02/04/19 Cocaine Substance route: Inhalation Frequency: Daily Amount used: 5 grams Age of first use: 15 Date of last use: 02/05/19 Benzodiazepine (Klonopin) Substance route: Oral Frequency: 1-3 times last 30 days Amount used: 3 Age of first use: 49 Date of last use: 02/04/19 Family Disease History - Family Disease History Family Disease History: Diabetes: Father (, hx etoh/drugs), Heart Disease: Mother (living, ), Other: Father, Mother, Brother (six - healthy) Admission Physical Exam S - Vital Signs Vital Signs: Vital Signs - 24 hr 02/05/19 02/05/19 11:25 11:56 Temperature 97.2 F L 97.2 F L Pulse Rate 63 63 Respiratory 18 18 Rate Blood Pressure 142/86 142/86 - Physical General Appearance: Yes: Within Normal Limits, Mild Distress HEENTM: Yes: Within Normal Limits, Normocephalic, Normal Voice, COMFORT, Pharynx Normal Respiratory: Yes: Within Normal Limits, Chest Non-Tender, Lungs Clear, Normal Breath Sounds, No Respiratory Distress, No Accessory Muscle Use Neck: Yes: No masses,lesions,Nodules, Trachea in good position Breast: Yes: Within Normal Limits Cardiology: Yes: Regular Rhythm, Regular Rate, S1, S2 Abdominal: Yes: Normal Bowel Sounds, Non Tender, Soft Genitourinary: Yes: Within Normal Limits Back: Yes: Normal Inspection Musculoskeletal: Yes: full range of Motion, Gait Steady, Back pain Extremities: Yes: Normal Capillary Refill, Normal Inspection, Normal Range of Motion, Non-Tender Neurological: Yes: tattoo technician II-XII NML intact, Fully Oriented, Alert, Motor Strength 5/5, Normal Mood/Affect, Normal Response Integumentary: Yes: Normal Color, Dry Lymphatic: Yes: Within Normal Limits - Diagnostic (1) Alcohol dependence with uncomplicated withdrawal Current Visit: Yes Status: Acute (2) Opioid dependence with withdrawal Current Visit: Yes Status: Acute (3) Back pain, chronic Current Visit: Yes Status: Chronic Qualifiers: Back pain location: low back pain Back pain laterality: unspecified Sciatica presence: without sciatica Qualified Code(s): M54.5 - Low back pain; G89.29 - Other chronic pain (4) Bipolar disorder Current Visit: Yes Status: Chronic Qualifiers: Current episode severity: unspecified Comment: History.Non compliant with medications. (5) Dehydration Current Visit: Yes Status: Chronic (6) Hypertension Current Visit: Yes Status: Chronic Qualifiers: Hypertension type: essential hypertension Qualified Code(s): I10 - Essential (primary) hypertension (7) Nicotine dependence Current Visit: Yes Status: Chronic Qualifiers: Nicotine product type: cigarettes Substance use status: in withdrawal Qualified Code(s): F17.213 - Nicotine dependence, cigarettes, with withdrawal Cleared for Admission [facility] - Detox or Rehab Detox Regimen/Protocol: Methadone/Librium Screened but not Admitted - Documentation of Visit Screened but not Admitted: No Breathalyzer - Breathalyzer Breathalyzer: 0 Vital Signs - Vital Signs Vital signs refused: No Temperature: 97.2 F Temperature source: Oral Pulse Rate: 63 Respiratory Rate: 18 Blood Pressure: 142/82 BP Location: Right Arm Blood Pressure position: Sitting - Height Height: 5 ft 11 in - Weight Weight: 174 lb Weight measurement method: Standing scale - BMI Body Mass Index (BMI): 24.3 - Bowel Function Bowel Movement: No Urine Drug Screen - Test Device Lot number: [id number] Expiration date: 11/07/20 - Control Is test valid?: Yes - Results Drug screen NEGATIVE: No Urine drug screen results: THC-Marijuana, MAURA-Cocaine, FEN-Fentanyl, MOP-Opiates Inpatient Rehab Admission - Rehab Decision to Admit Inpatient rehab admission?: No
[2019-02-05 13:46] VITALS: BMI 24.3
[2019-02-05] MEDS ORDERED: MELATONIN 5 MG TABLETS PO PRN (13:50)
[2019-02-05] MEDS ORDERED: MAGNESIUM CITRATE 300 ML BOTTLE PO PRN (13:50)
[2019-02-05] MEDS ORDERED: BISMUTH SUBSALICYLATE 524 MG/30 ML UD PO PRN (13:50)
[2019-02-05] MEDS ORDERED: cloNIDine HCL 0.1 MG TABLET PO PRN (13:50)
[2019-02-05] MEDS ORDERED: ACETAMINOPHEN 325 MG TABLET (FP) PO PRN ×2 (13:50)
[2019-02-05] MEDS ORDERED: METHADONE HCL 10 MG TABLET (FOR DETOX USE ONLY) PO ONE (13:50)
[2019-02-05] MEDS ORDERED: hydrOXYzine PAMOATE 25 MG CAPSULE (FP) PO PRN (13:50)
[2019-02-05] MEDS ORDERED: MENTHOL/PHENOL 1 EACH UD MM PRN (13:50)
[2019-02-05] MEDS ORDERED: IBUPROFEN 400 MG TABLET (FP) PO PRN (13:50)
[2019-02-05] MEDS ORDERED: chlordiazePOXIDE HCL 25 MG CAPSULE PO PRN (13:50)
[2019-02-05] MEDS ORDERED: MAGNESIUM HYDROX 2400MG/30ML ORAL SUSPENSION 30 ML CUP PO PRN (13:50)
[2019-02-05] MEDS ORDERED: METHOCARBAMOL 500 MG TABLET PO PRN (13:50)
[2019-02-05] MEDS: LISINOPRIL 10 MG TABLET (FP) PO SCH ×2 (15:41→22:27)
[2019-02-05] MEDS: NICOTINE 21 MG/24 HOURS TOPICAL PATCH TD SCH (15:42)
[2019-02-05] MEDS: chlordiazePOXIDE HCL 25 MG CAPSULE PO SCH ×2 (17:30→22:27)
[2019-02-05] MEDS: THIAMINE HCL 100 MG TABLET (FP) PO SCH (22:26)
[2019-02-06] MEDS: chlordiazePOXIDE HCL 25 MG CAPSULE PO SCH ×4 (05:49→22:04)
[2019-02-06] MEDS ORDERED: METHADONE HCL 10 MG TABLET (FOR DETOX USE ONLY) ONE (08:10)
[2019-02-06] MEDS ORDERED: METHADONE HCL 5 MG TABLET (FOR DETOX USE ONLY) ONE (08:11)
[2019-02-06] MEDS ORDERED: METHADONE (DETOX) 20 MG, METHADONE (DETOX) 5 MG PO ONE (10:00)
[2019-02-06] MEDS: NICOTINE 21 MG/24 HOURS TOPICAL PATCH TD SCH (10:14)
[2019-02-06] MEDS: PRENATAL VITAMINS W/ FOLIC ACID TABLET (FP) PO SCH (10:14)
[2019-02-06] MEDS: LISINOPRIL 10 MG TABLET (FP) PO SCH ×2 (10:14→22:03)
--- NOTE | 2019-02-06 10:19 | CONSULT ---
[facility] Psychiatric Consult - Data Date of interview: 02/06/19 Admission source: [facility] Identifying data: Patient is a 53 year old single male, without children, unemployed, resides in the [facility] snf, and is supported by medicaid benefits. This is one of multiple admissios for patient. Patient admitted to for alcohol, benzodiazepine and opiate dependence. Substance Abuse History: Smoking Cessation. Smoking history: Current every day smoker. Have you smoked in the past 12 months: Yes. Aproximately how many cigarettes per day: 20. Cigars Per Day: 0. Hx Chewing Tobacco Use: No. Initiated information on smoking cessation: No. 'Breaking Loose' booklet given : 02/05/19. - Substance & Tx. History. Hx Alcohol Use: Yes (see history). Hx Substance Use: Yes. Substance Use Type: Alcohol, Cocaine, Heroin, Opiates. Hx Substance Use Treatment: Yes (was in a suboxone treatment but then discontinued) . - Substances abused. Heroin. Substance route: Inhalation. Frequency: 3- 6 times per week. Amount used: 3 bags. Age of first use: 23. Date of last use : 02/05/19. Alcohol. Substance route: Oral. Frequency: 1-2 times per week. Amount used: 1/2 pint. Age of first use: 16. Date of last use: . Cocaine. Substance route: Inhalation. Frequency: Daily. Amount used: 5 grams. Age of first use: 15. Date of last use: 02/05/19. Benzodiazepine (Klonopin). Substance route: Oral. Frequency: 1-3 times last 30 days. Amount used: 3. Age of first use: 49. Date of last use: 02/04/19 Medical History: hypertension, GERD Psychiatric History: Mr. Lomeli was first diagnosed in 1992 after he was referred to see a psychiatrist. He reports h/o multiple psychiatric hospitalizations, most recently three months ago at [facility] after feeling depressed and expressing suicidal thoughts. Reports diagnosis of bipolar disorder. He reports additional psychiatric hospitalizations at [facility] and hospitals in [place] and [facility]. Mr. Lomeli is currently provided with psychiatric care at [facility] and is prescribed Effexor 75mg daily (reports taking it two days ago) and Seroquel 150-200mg ?? unsure. Reports last taking seroquel 2 weeks ago. Mr. Lomeli reports h/o one suicide attemp by jumping onto the path of oncoming traffic. At present patient reports difficulty sleeping. Physical/Sexual Abuse/Trauma History: denies. Mental Status Exam - Mental Status Exam Alert and Oriented to: Time, Place, Person Cognitive Function: Good Patient Appearance: Well Groomed Mood: Euthymic Affect: Mood Congruent Patient Behavior: Cooperative Speech Pattern: Appropriate Voice Loudness: Normal Thought Process: Goal Oriented Thought Disorder: Not Present Hallucinations: Denies Suicidal Ideation: Denies Homicidal Ideation: Denies Insight/Judgement: Poor Sleep: Poorly Appetite: Fair Muscle strength/Tone: Normal Gait/Station: Normal Psychiatric Findings - Problem List ([place] 1, 2,3) (1) Alcohol dependence with uncomplicated withdrawal Current Visit: Yes Status: Acute (2) Bipolar disorder Current Visit: Yes Status: Chronic Qualifiers: Current episode severity: unspecified Comment: History.Non compliant with medications. (3) Nicotine dependence Current Visit: Yes Status: Chronic Qualifiers: Nicotine product type: cigarettes Substance use status: in withdrawal Qualified Code(s): F17.213 - Nicotine dependence, cigarettes, with withdrawal (4) Substance-induced sleep disorder Current Visit: Yes Status: Acute - Initial Treatment Plan Initial Treatment Plan: Psychoeducation provided. Detoxification in progress. Will order Effexor 75mg XR + Seroquel 100mg HS. Benefits and side effects discussed. Verbal consent given.
[2019-02-06 10:38] LABS: ALBUMIN 3.8 g/dl (3.4-5.0); BILIRUBIN,TOTAL 0.4 mg/dL (0.2-1); BLOOD UREA NITROGEN 13.3 mg/dL (7-18); CALCIUM 9.5 mg/dL (8.5-10.1); CREATININE 1.1 mg/dL (0.55-1.3); POTASSIUM 4.3 mmol/L (3.5-5.1); TOT PROT 7.2 g/dl (6.4-8.2)
[2019-02-06 10:59] LABS: HEMATOCRIT 40.9 % (35.4-49); MCH 32.1 pg (25.7-33.7); MCHC 34.2 g/dl (32.0-35.9); MEAN CELL VOLUME 93.7 fl (80-96); MEAN PLT VOLUME 9.9 fl (7.5-11.1); PLATELET COUNT 215 K/MM3 (134-434); RBC 4.37 M/mm3 (4.00-5.60); WHITE BLOOD COUNT 7.4 K/mm3 (4.0-10.0)
[2019-02-06] MEDS ORDERED: PANTOPRAZOLE 40 MG TABLET (FP) PO ONE (11:00)
[2019-02-06] MEDS: VENLAFAXINE HCL 75 MG E.R. CAPSULES (FP) PO SCH (15:06)
--- NOTE | 2019-02-06 16:50 | PN ---
[facility] CIWA - CIWA Score Nausea/Vomitin-No Nausea/No Vomiting Muscle Tremors: None Anxiety: 3 Agitation: 2 Paroxysmal Sweats: 3 Orientation: 2-Disoriented Date<2 days Tacttile Disturbances: 2-Mild Itch/Numbness/Burn Auditory Disturbances: 2-Mild Harshness/Frighten Visual Disturbances: 0-None Headache: 0-None Present CIWA-Ar Total Score: 14 S COWS - Scale Resting Pulse: 0= [place] 80 or Below Sweatin= Chills/Flushing Restless Observation: 1= Difficult to Sit Still Pupil Size: 0= Normal to Room Light Bone or Joint Aches: 0= None Runny Nose/ Eye Tearin= None GI Upset > 30mins: 1= Stomach Cramp Tremor Observation of Outstretched Hands: 0= None Yawning Observation: 1= 1-2x During Session Anxiety or Irritability: 2=Irritable/Anxious Goose Flesh Skin: 3=Piloerection COWS Score: 9 S Progress Note (SOAP) Subjective: Sweating, Anxious, Stomach Cramping. Objective: PATIENT A & O X 2 (UNCERTAIN ABOUT CURRENT DAY / DATE). PATIENT OBSERVED AMBULATING ON UNIT UNASSISTED. IN NO ACUTE DISTRESS. 02/06/19 16:51 Vital Signs Temperature 96 F L 02/06/19 13:04 Pulse Rate 55 L 02/06/19 13:04 Respiratory Rate 20 02/06/19 13:04 Blood Pressure 162/84 02/06/19 13:04 O2 Sat by Pulse Oximetry (%) Laboratory Tests 02/06/19 02/06/19 06:30 06:30 WBC 7.4 RBC 4.37 Hgb 14.0 Hct 40.9 MCV 93.7 MCH 32.1 MCHC 34.2 RDW 13.0 Plt Count 215 MPV 9.9 Sodium 142 Potassium 4.3 Chloride 106 Carbon Dioxide 33 H Anion Gap 3 L BUN 13.3 Creatinine 1.1 Est GFR (CKD-EPI)AfAm 87.74 Est GFR (CKD-EPI)NonAf 75.70 Random Glucose 63 L Calcium 9.5 Total Bilirubin 0.4 AST 24 ALT 26 Alkaline Phosphatase 86 Total Protein 7.2 Albumin 3.8 LABS NOTED. RESULTS OF ADMISSION QFT /TB TEST AND RPR PENDING. 02/06/19 16:52 Assessment: 02/06/19 16:52 WITHDRAWAL SYMPTOMS. Plan: CONTINUE DETOX.
[2019-02-06] MEDS: MAG HYDROX/AL HYDROX/SIMETH 30 ML UNIT-DOSE CUP PO PRN (19:07)
[2019-02-06] MEDS: THIAMINE HCL 100 MG TABLET (FP) PO SCH (22:03)
[2019-02-06] MEDS: QUEtiapine FUMARATE 100 MG TABLET (FP) PO SCH (22:04)
[2019-02-07] MEDS: chlordiazePOXIDE HCL 25 MG CAPSULE PO SCH ×4 (05:42→22:02)
[2019-02-07] MEDS: PANTOPRAZOLE 40 MG TABLET (FP) PO SCH (05:43)
[2019-02-07] MEDS ORDERED: METHADONE HCL 10 MG TABLET (FOR DETOX USE ONLY) PO ONE (10:00)
[2019-02-07] MEDS: NICOTINE 21 MG/24 HOURS TOPICAL PATCH TD SCH (10:18)
[2019-02-07] MEDS: VENLAFAXINE HCL 75 MG E.R. CAPSULES (FP) PO SCH (10:18)
[2019-02-07] MEDS: LISINOPRIL 10 MG TABLET (FP) PO SCH ×2 (10:18→22:03)
[2019-02-07] MEDS: PRENATAL VITAMINS W/ FOLIC ACID TABLET (FP) PO SCH (10:18)
--- NOTE | 2019-02-07 14:39 | PN ---
S CIWA - CIWA Score Nausea/Vomitin-Mild Nausea/No Vomiting Muscle Tremors: 3 Anxiety: 2 Agitation: 2 Paroxysmal Sweats: 1-Minimal Palms Moist Orientation: 1-Uncertain about Date Tacttile Disturbances: 0-None Auditory Disturbances: 0-None Visual Disturbances: 0-None Headache: 0-None Present CIWA-Ar Total Score: 10 BHS COWS - Scale Resting Pulse: 0= [place] 80 or Below Sweatin= Chills/Flushing Restless Observation: 0= Sits Still Pupil Size: 0= Normal to Room Light Bone or Joint Aches: 1= Mild Discomfort Runny Nose/ Eye Tearin= None GI Upset > 30mins: 1= Stomach Cramp Tremor Observation of Outstretched Hands: 1= Tremor [place], Not Seen Yawning Observation: 0= None Anxiety or Irritability: 1=Feels Anxious/Irritable Goose Flesh Skin: 0=Smooth Skin COWS Score: 5 S Progress Note (SOAP) Subjective: 53 years old male admitted on 02/05/19 for acute alcohol and opiate withdrawal sx management report sober 9 years recent relapse has network of support in the community stated that feeling better today and estimate discharge date on 02/09/19 Objective: 02/07/19 14:46 Vital Signs Temperature 96.5 F L 02/07/19 13:26 Pulse Rate 49 L 02/07/19 13:26 Respiratory Rate 18 02/07/19 13:26 Blood Pressure 140/76 02/07/19 13:26 O2 Sat by Pulse Oximetry (%) Laboratory Last Values WBC 7.4 K/mm3 (4.0-10.0) 02/06/19 06:30 RBC 4.37 M/mm3 (4.00-5.60) 02/06/19 06:30 Hgb 14.0 GM/dL (11.7-16.9) 02/06/19 06:30 Hct 40.9 % (35.4-49) 02/06/19 06:30 MCV 93.7 fl (80-96) 02/06/19 06:30 MCH 32.1 pg (25.7-33.7) 02/06/19 06:30 MCHC 34.2 g/dl (32.0-35.9) 02/06/19 06:30 RDW 13.0 % (11.9-15.9) 02/06/19 06:30 Plt Count 215 K/MM3 (134-434) 02/06/19 06:30 MPV 9.9 fl (7.5-11.1) 02/06/19 06:30 Sodium 142 mmol/L (136-145) 02/06/19 06:30 Potassium 4.3 mmol/L (3.5-5.1) 02/06/19 06:30 Chloride 106 mmol/L (98-107) 02/06/19 06:30 Carbon Dioxide 33 mmol/L (21-32) H 02/06/19 06:30 Anion Gap 3 MMOL/L (8-16) L 02/06/19 06:30 BUN 13.3 mg/dL (7-18) 02/06/19 06:30 Creatinine 1.1 mg/dL (0.55-1.3) 02/06/19 06:30 Est GFR (CKD-EPI)AfAm 87.74 02/06/19 06:30 Est GFR (CKD-EPI)NonAf 75.70 02/06/19 06:30 Random Glucose 63 mg/dL (74-106) L 02/06/19 06:30 Calcium 9.5 mg/dL (8.5-10.1) 02/06/19 06:30 Total Bilirubin 0.4 mg/dL (0.2-1) 02/06/19 06:30 AST 24 U/L (15-37) 02/06/19 06:30 ALT 26 U/L (13-61) 02/06/19 06:30 Alkaline Phosphatase 86 U/L (45-117) 02/06/19 06:30 Total Protein 7.2 g/dl (6.4-8.2) 02/06/19 06:30 Albumin 3.8 g/dl (3.4-5.0) 02/06/19 06:30 RPR Titer Nonreactive (NONREACTIVE) 02/06/19 06:30 lab noted Assessment: 02/07/19 14:46 alcohol and opiate withdrawal sx Plan: continue alcohol and opiate detox
[2019-02-07] MEDS: MAG HYDROX/AL HYDROX/SIMETH 30 ML UNIT-DOSE CUP PO PRN (18:31)
[2019-02-07] MEDS: THIAMINE HCL 100 MG TABLET (FP) PO SCH (22:02)
[2019-02-07] MEDS: QUEtiapine FUMARATE 100 MG TABLET (FP) PO SCH (22:03)
[2019-02-08] MEDS ORDERED: chlordiazePOXIDE HCL 10 MG CAPSULE PO PRN
[2019-02-08] MEDS: chlordiazePOXIDE HCL 10 MG CAPSULE PO SCH ×4 (06:25→22:02)
[2019-02-08] MEDS: PANTOPRAZOLE 40 MG TABLET (FP) PO SCH (06:26)
[2019-02-08] MEDS ORDERED: METHADONE HCL 10 MG TABLET (FOR DETOX USE ONLY) PO ONE (10:00)
[2019-02-08] MEDS ORDERED: METHADONE (DETOX) 10 MG, METHADONE (DETOX) 5 MG PO ONE (10:00)
[2019-02-08] MEDS: PRENATAL VITAMINS W/ FOLIC ACID TABLET (FP) PO SCH (10:31)
[2019-02-08] MEDS: LISINOPRIL 10 MG TABLET (FP) PO SCH ×2 (10:32→22:02)
[2019-02-08] MEDS: VENLAFAXINE HCL 75 MG E.R. CAPSULES (FP) PO SCH (10:32)
[2019-02-08] MEDS: NICOTINE 21 MG/24 HOURS TOPICAL PATCH TD SCH (10:32)
--- NOTE | 2019-02-08 14:28 | PN ---
[facility] CIWA - CIWA Score Nausea/Vomitin-No Nausea/No Vomiting Muscle Tremors: 2 Anxiety: 1-Mildly Anxious Agitation: 1-Slight > Activity Paroxysmal Sweats: No Perspiration Orientation: 0-Oriented Tacttile Disturbances: 0-None Auditory Disturbances: 0-None Visual Disturbances: 0-None Headache: 0-None Present CIWA-Ar Total Score: 4 BHS COWS - Scale Resting Pulse: 0= [place] 80 or Below Sweatin= No chills or Flushing Restless Observation: 0= Sits Still Pupil Size: 0= Normal to Room Light Bone or Joint Aches: 1= Mild Discomfort Runny Nose/ Eye Tearin= Nasal Congestion GI Upset > 30mins: 0= None Tremor Observation of Outstretched Hands: 1= Tremor [place], Not Seen Yawning Observation: 0= None Anxiety or Irritability: 1=Feels Anxious/Irritable Goose Flesh Skin: 0=Smooth Skin COWS Score: 4 S Progress Note (SOAP) Subjective: feeling better today prefers to be discharge tomorrow transportation arranged less tremor mild body ache Objective: 02/08/19 14:30 Vital Signs Temperature 97 F L 02/08/19 13:04 Pulse Rate 67 02/08/19 13:04 Respiratory Rate 18 02/08/19 13:04 Blood Pressure 125/71 02/08/19 13:04 O2 Sat by Pulse Oximetry (%) Laboratory Last Values WBC 7.4 K/mm3 (4.0-10.0) 02/06/19 06:30 RBC 4.37 M/mm3 (4.00-5.60) 02/06/19 06:30 Hgb 14.0 GM/dL (11.7-16.9) 02/06/19 06:30 Hct 40.9 % (35.4-49) 02/06/19 06:30 MCV 93.7 fl (80-96) 02/06/19 06:30 MCH 32.1 pg (25.7-33.7) 02/06/19 06:30 MCHC 34.2 g/dl (32.0-35.9) 02/06/19 06:30 RDW 13.0 % (11.9-15.9) 02/06/19 06:30 Plt Count 215 K/MM3 (134-434) 02/06/19 06:30 MPV 9.9 fl (7.5-11.1) 02/06/19 06:30 Sodium 142 mmol/L (136-145) 02/06/19 06:30 Potassium 4.3 mmol/L (3.5-5.1) 02/06/19 06:30 Chloride 106 mmol/L (98-107) 02/06/19 06:30 Carbon Dioxide 33 mmol/L (21-32) H 02/06/19 06:30 Anion Gap 3 MMOL/L (8-16) L 02/06/19 06:30 BUN 13.3 mg/dL (7-18) 02/06/19 06:30 Creatinine 1.1 mg/dL (0.55-1.3) 02/06/19 06:30 Est GFR (CKD-EPI)AfAm 87.74 02/06/19 06:30 Est GFR (CKD-EPI)NonAf 75.70 02/06/19 06:30 Random Glucose 63 mg/dL (74-106) L 02/06/19 06:30 Calcium 9.5 mg/dL (8.5-10.1) 02/06/19 06:30 Total Bilirubin 0.4 mg/dL (0.2-1) 02/06/19 06:30 AST 24 U/L (15-37) 02/06/19 06:30 ALT 26 U/L (13-61) 02/06/19 06:30 Alkaline Phosphatase 86 U/L (45-117) 02/06/19 06:30 Total Protein 7.2 g/dl (6.4-8.2) 02/06/19 06:30 Albumin 3.8 g/dl (3.4-5.0) 02/06/19 06:30 RPR Titer Nonreactive (NONREACTIVE) 02/06/19 06:30 TB (QFT) Incubation (.) 02/05/19 14:00 TB Test (QFT) Nil 0.03 IU/mL (.) 02/05/19 14:00 TB Test (QFT) Mitogen >10.00 IU/mL (.) 02/05/19 14:00 TB Test (QFT) Antigen 0.02 IU/mL (.) 02/05/19 14:00 TB Test (QFT) Negative (Negative) 02/05/19 14:00 TB Positive Criteria (.) 02/05/19 14:00 lab noted Assessment: 02/08/19 14:30 alcohol and opiate withdrawal sx Plan: continue opiate and alcohol detox
[2019-02-08] MEDS: THIAMINE HCL 100 MG TABLET (FP) PO SCH (22:02)
[2019-02-08] MEDS: QUEtiapine FUMARATE 100 MG TABLET (FP) PO SCH (22:02)
[2019-02-09] MEDS ORDERED: chlordiazePOXIDE HCL 10 MG CAPSULE PO SCH (05:00)
[2019-02-09] MEDS: PANTOPRAZOLE 40 MG TABLET (FP) PO SCH (05:47)
[2019-02-09] MEDS ORDERED: METHADONE HCL 5 MG TABLET (FOR DETOX USE ONLY) PO ONE (06:00)
[2019-02-09 07:27] VITALS: TEMP 96.6
[2019-02-09 09:21] VITALS: BP 124/67; PULSE 68
[2019-02-09] MEDS ORDERED: METHADONE HCL 10 MG TABLET (FOR DETOX USE ONLY) PO ONE (10:00)
[2019-02-09] MEDS: PRENATAL VITAMINS W/ FOLIC ACID TABLET (FP) PO SCH (10:47)
[2019-02-09] MEDS: LISINOPRIL 10 MG TABLET (FP) PO SCH (10:47)
[2019-02-09] MEDS: NICOTINE 21 MG/24 HOURS TOPICAL PATCH TD SCH (10:47)
[2019-02-09] MEDS: VENLAFAXINE HCL 75 MG E.R. CAPSULES (FP) PO SCH (10:47)
--- NOTE | 2019-02-09 18:48 | DS ---
[facility] Detox Discharge Summary Admission Date: 02/05/19 Discharge Date: 02/09/19 - History Present History: Alcohol Dependence, Opioid Dependence Additional Comments: PATIENT GOING TO [facility] ([place], [place]) FOR AFTERCARE. PATIENT WAS DISCHARGED FROM DETOX UNIT IN STABLE MEDICAL CONDITION. Pertinent Past History: HTN, Bipolar Disorder, Dehydration, Nicotine Dependence, History Of Chronic Back Pain, History Of G.E.R.D. - Physical Exam Results Vital Signs: Vital Signs Temperature 96.6 F L 02/09/19 09:20 Pulse Rate 68 02/09/19 09:20 Respiratory Rate 18 02/09/19 09:20 Blood Pressure 124/67 02/09/19 09:20 O2 Sat by Pulse Oximetry (%) Pertinent Admission Physical Exam Findings: WITHDRAWAL SYMPTOMS. Laboratory Tests 02/05/19 02/06/19 02/06/19 14:00 06:30 06:30 WBC 7.4 RBC 4.37 Hgb 14.0 Hct 40.9 MCV 93.7 MCH 32.1 MCHC 34.2 RDW 13.0 Plt Count 215 MPV 9.9 Sodium 142 Potassium 4.3 Chloride 106 Carbon Dioxide 33 H Anion Gap 3 L BUN 13.3 Creatinine 1.1 Est GFR (CKD-EPI)AfAm 87.74 Est GFR (CKD-EPI)NonAf 75.70 Random Glucose 63 L Calcium 9.5 Total Bilirubin 0.4 AST 24 ALT 26 Alkaline Phosphatase 86 Total Protein 7.2 Albumin 3.8 RPR Titer TB (QFT) Incubation TB Test (QFT) Nil 0.03 TB Test (QFT) Mitogen >10.00 TB Test (QFT) Antigen 0.02 TB Test (QFT) Negative TB Positive Criteria 02/06/19 06:30 WBC RBC Hgb Hct MCV MCH MCHC RDW Plt Count MPV Sodium Potassium Chloride Carbon Dioxide Anion Gap BUN Creatinine Est GFR (CKD-EPI)AfAm Est GFR (CKD-EPI)NonAf Random Glucose Calcium Total Bilirubin AST ALT Alkaline Phosphatase Total Protein Albumin RPR Titer Nonreactive TB (QFT) Incubation TB Test (QFT) Nil TB Test (QFT) Mitogen TB Test (QFT) Antigen TB Test (QFT) TB Positive Criteria LABS NOTED. - Treatment Hospital Course: Detox Protocol Followed, Detoxed Safely, Responded well, Discharged Condition Good, Rehab Referral Accepted Patient has Accepted a Rehab Referral to: [facility] ([place], [place]). - Medication Discharge Medications: Ambulatory Orders Venlafaxine HCl ER [Effexor Xr -] 75 mg PO DAILY #30 cap.er.24h 05/15/17 Quetiapine Fumarate [Seroquel] 100 mg PO HS #30 tablet 07/02/17 Lisinopril [Prinivil] 10 mg PO BID #30 tablet 02/08/19 - Diagnosis (1) Alcohol dependence with uncomplicated withdrawal Status: Acute (2) Opioid dependence with withdrawal Status: Acute (3) Substance-induced sleep disorder Status: Acute (4) Back pain, chronic Status: Chronic Qualifiers: Back pain location: low back pain Back pain laterality: unspecified Sciatica presence: without sciatica Qualified Code(s): M54.5 - Low back pain; G89.29 - Other chronic pain (5) Bipolar disorder Status: Chronic Qualifiers: Active/Remission status: remission status unspecified Qualified Code(s): F31.9 - Bipolar disorder, unspecified (6) Dehydration Status: Chronic (7) Hypertension Status: Chronic Qualifiers: Hypertension type: essential hypertension Qualified Code(s): I10 - Essential (primary) hypertension (8) Nicotine dependence Status: Chronic Qualifiers: Nicotine product type: cigarettes Substance use status: in withdrawal Qualified Code(s): F17.213 - Nicotine dependence, cigarettes, with withdrawal - AMA Did Patient Leave Against Medical Advice: No
[2019-02-10] MEDS ORDERED: chlordiazePOXIDE HCL 10 MG CAPSULE PO ONE (05:00)
[2019-02-10] MEDS ORDERED: METHADONE HCL 5 MG TABLET (FOR DETOX USE ONLY) PO ONE (06:00)
== END 2019-02-09 15:05 | disposition home or self-care (01) | DRG 773 ==
LOC: YASAS 10:53 → Y3N 14:10
PROVIDERS: ADMIT Surgery; ATTEND Surgery
PROC: HZ2ZZZZ Detoxification Services for Substance Abuse Treatment (ICD-10-PCS; principal; 2019-02-05)
DX: F10.230 Alcohol dependence with withdrawal, uncomplicated (principal); F11.23 Opioid dependence with withdrawal; F13.10 Sedative, hypnotic or anxiolytic abuse, uncomplicated; F14.20 Cocaine dependence, uncomplicated; F17.213 Nicotine dependence, cigarettes, with withdrawal; F19.282 Other psychoactive substance dependence with psychoactive substance-induced sleep disorder; F31.9 Bipolar disorder, unspecified; E86.0 Dehydration; I10 Essential (primary) hypertension; M54.5 Low back pain; G89.29 Other chronic pain; Z87.19 Personal history of other diseases of the digestive system
CPT/HCPCS: 36415; 80053; 85027; 86480; 86593

== ENCOUNTER 2019-05-22 18:57 | Inpatient (IN) | payer OTHER ==
[2019-05-22 21:20] VITALS: BMI 24.7
--- NOTE | 2019-05-22 23:02 | HP ---
COWS - Scale Anxiety or Irritability: 2=Irritable/Anxious CIWA Score Nausea/Vomitin Muscle Tremors: 4-Moderate,w/Arms Extend Anxiety: 3 Agitation: 4-Moderately Restless Paroxysmal Sweats: 2 Orientation: 0-Oriented Tacttile Disturbances: 0-None Auditory Disturbances: 0-None Visual Disturbances: 0-None Headache: 3-Moderate CIWA-Ar Total Score: 18 - Admission Criteria OASAS Guidelines: Admission for Medically Managed Detox: Requires at least one of the followin. CIWA greater than 12 2. Seizures within the past 24 hours 3. Delirium tremens within the past 24 hours 4. Hallucinations within the past 24 hours 5. Acute intervention needed for co occurring medical disorder 6. Acute intervention needed for co occurring psychiatric disorder 7. Severe withdrawal that cannot be handled at a lower level of care (continued vomiting, continued diarrhea, abnormal vital signs) requiring intravenous medication and/or fluids 8. Admitting History and Physical - Smoking History Smoking history: Current every day smoker Have you smoked in the past 12 months: Yes Aproximately how many cigarettes per day: 20 - Alcohol/Substance Use Hx Alcohol Use: Yes (see history) Admission [facility] Chief Complaint: Heroin and alcohol withdrawal symptoms Allergies/Adverse Reactions: Allergies Allergy/AdvReac Type Severity Reaction Status Date / Time No Known Allergies Allergy Verified 04/11/18 12:15 History of Present Illness: 54 years old male with a long history of alcohol withdrawal symptoms, dependent on heroine and on prescribed buprenorphine-naloxone 8-2 mg sl film is seeking admission to detox. Patient has been in previous multiple detox and reports insignificant period of sobriety. He has history of hypertension and reports suicide attempt in 1992. Denies suicidal ideation at this time. Patient is on buprenorphine -naloxone 8-2mg sLfilm to be initiated Confidential Drug Utilization Report Search Terms: vincent Bonilla, 1965 Search Date: 05/22/2019 10:56:33 PM The Drug Utilization Report below displays all of the controlled substance prescriptions, if any, that your patient has filled in the last twelve months. The information displayed on this report is compiled from pharmacy submissions to the Department, and accurately reflects the information as submitted by the pharmacies. Patient Name: Vincent Bonilla Date: 1965 Address: [address] [place] [address] Sex: Male Rx Written Rx Dispensed Drug Quantity Days Supply Prescriber Name 04/24/2019 04/24/2019 buprenorphine-naloxone 8-2 mg sl film 90 30 Eduardo Ambrose ([place]) 04/10/2019 04/10/2019 buprenorphine-naloxone 8-2 mg sl film 42 14 Eduardo Ambrose ([place]) 02/19/2019 02/19/2019 buprenorphine-naloxone 8-2 mg sl film 60 30 Cheo Parra MD Patient Name: Vincent Bonilla Date: 1965 Address: [address] [place] [address] Sex: Male Rx Written Rx Dispensed Drug Quantity Days Supply Prescriber Name 10/30/2018 10/30/2018 buprenorphine-naloxone 8-2 mg sl film 90 30 Sarah Gaytan Exam Limitations: No Limitations - Ebola screening Have you traveled outside of the country in the last 21 days: No (N) Have you had contact with anyone from an Ebola affected area: No Do you have a fever: No - Review of Systems Constitutional: Chills, Malaise, Night Sweats, Changes in sleep EENT: reports: Nose Congestion Respiratory: reports: No Symptoms reported Cardiac: reports: No Symptoms Reported GI: reports: Poor Appetite, Poor Fluid Intake, Abdominal cramping : reports: No Symptoms Reported Musculoskeletal: reports: Back Pain, Muscle Weakness Integumentary: reports: Bruising, Dryness, Flushing Neuro: reports: No Symptoms reported Endocrine: reports: No Symptoms Reported Hematology: reports: No Symptoms Reported Psychiatric: reports: Mood/Affect Appropiate, Orientated x3, Anxious, Depressed Other Systems: Reviewed and Negative Patient History - Patient Medical History Hx Anemia: No Hx Asthma: No Hx Chronic Obstructive Pulmonary Disease (COPD): No Hx Cancer: No Hx Cardiac Disorders: No Hx Congestive Heart Failure: No Hx Hypertension: Yes (Lisinopril) Hx Hypercholesterolemia: No Hx Pacemaker: No HX Cerebrovascular Accident: No Hx Seizures: No Hx Dementia: No Hx Diabetes: No Hx Gastrointestinal Disorders: No Hx Liver Disease: No Hx Genitourinary Disorders: No Hx Sexually Transmitted Disorders: No Hx Renal Disease (ESRD): No Hx Thyroid Disease: No Hx Human Immunodeficiency Virus (HIV): No Hx Hepatitis C: No Hx Depression: No Hx Suicide Attempt: No Hx Bipolar Disorder: Yes (Takes med.) Hx Schizophrenia: No - Patient Surgical History Past Surgical History: No Hx Neurologic Surgery: No Hx Cataract Extraction: No Hx Cardiac Surgery: No Hx Lung Surgery: No Hx Abdominal Surgery: No Hx Appendectomy: No Hx Cholecystectomy: No Hx Genitourinary Surgery: No Hx Orthopedic Surgery: No Anesthesia Reaction: No - PPD History Previous Implant?: Yes Documented Results: Negative w/proof Implanted On Prior [facility] Admission?: Yes Date: 01/30/18 Results: 0 mm. PPD to be Administered?: No - Reproductive History Patient is a Female of Child Bearing Age (11 -55 yrs old): No (male) - Smoking Cessation Smoking history: Current every day smoker Have you smoked in the past 12 months: Yes Aproximately how many cigarettes per day: 20 Cigars Per Day: 0 Hx Chewing Tobacco Use: No Initiated information on smoking cessation: Yes 'Breaking Loose' booklet given: 05/22/19 - Substance & Tx. History Hx Alcohol Use: No Hx Substance Use: Yes Substance Use Type: Alcohol, Cocaine, Heroin, Marijuana, Opiates Hx Substance Use Treatment: Yes ([facility]) - Substances abused Heroin Substance route: Inhalation Frequency: 3-6 times per week Amount used: 3 bags Age of first use: 23 Date of last use: 02/05/19 Alcohol Substance route: Oral Frequency: 1-2 times per week Amount used: 1/2 pint Age of first use: 16 Date of last use: 02/04/19 Cocaine Substance route: Inhalation Frequency: Daily Amount used: 5 grams Age of first use: 15 Date of last use: 02/05/19 Benzodiazepine (Klonopin) Substance route: Oral Frequency: 1-3 times last 30 days Amount used: 3 Age of first use: 49 Date of last use: 02/04/19 Admission Physical Exam S - Vital Signs Vital Signs: Vital Signs - 24 hr 05/22/19 21:15 Temperature 98.2 F Pulse Rate 72 Respiratory 18 Rate Blood Pressure 173/98 H - Physical General Appearance: Yes: Within Normal Limits, Mild Distress, Moderate Distress HEENTM: Yes: Within Normal Limits, Normal Voice, COMFORT Respiratory: Yes: Lungs Clear, Normal Breath Sounds, No Respiratory Distress Neck: Yes: Supple Breast: Yes: Within Normal Limits Cardiology: Yes: Regular Rhythm, Regular Rate Abdominal: Yes: Normal Bowel Sounds, Soft Genitourinary: Yes: Within Normal Limits Back: Yes: Normal Inspection Musculoskeletal: Yes: Back pain, Muscle Pain Extremities: Yes: Tremors Neurological: Yes: Alert, Normal Mood/Affect, Abnormal Cranial NS Integumentary: Yes: Warm Lymphatic: Yes: Within Normal Limits - Diagnostic (1) Alcohol dependence with uncomplicated withdrawal Current Visit: Yes Status: Acute (2) Opioid dependence with withdrawal Current Visit: Yes Status: Acute (3) Back pain, chronic Current Visit: Yes Status: Chronic Qualifiers: Back pain location: low back pain Back pain laterality: unspecified Sciatica presence: without sciatica Qualified Code(s): M54.5 - Low back pain; G89.29 - Other chronic pain (4) Cannabis dependence, uncomplicated Current Visit: Yes Status: Chronic (5) Cocaine dependence, uncomplicated Current Visit: Yes Status: Chronic (6) GERD (gastroesophageal reflux disease) Current Visit: Yes Status: Chronic Qualifiers: Esophagitis presence: esophagitis presence not specified Qualified Code(s) : K21.9 - Gastro-esophageal reflux disease without esophagitis (7) Hypertension Current Visit: Yes Status: Chronic Qualifiers: Hypertension type: essential hypertension Qualified Code(s): I10 - Essential (primary) hypertension (8) Nicotine dependence Current Visit: Yes Status: Chronic Qualifiers: Nicotine product type: cigarettes Substance use status: uncomplicated Qualified Code(s): F17.210 - Nicotine dependence, cigarettes, uncomplicated (9) Non-compliance with treatment Current Visit: Yes Status: Chronic Cleared for Admission S - Detox or Rehab [facility] Level of Care: Medically Managed Detox Regimen/Protocol: Librium Breathalyzer - Breathalyzer Breathalyzer: 0 Urine Drug Screen - Test Device Lot number: [id number] Expiration date: 11/07/20 - Control Is test valid?: Yes - Results Drug screen NEGATIVE: No Urine drug screen results: THC-Marijuana, MAURA-Cocaine, MOP-Opiates Inpatient Rehab Admission - Rehab Decision to Admit Inpatient rehab admission?: No
[2019-05-22] MEDS ORDERED: MELATONIN 5 MG TABLETS PO PRN (23:32)
[2019-05-22] MEDS ORDERED: METHOCARBAMOL 500 MG TABLET PO PRN (23:32)
[2019-05-22] MEDS ORDERED: MENTHOL/PHENOL 1 EACH UD MM PRN (23:32)
[2019-05-22] MEDS ORDERED: MAGNESIUM CITRATE 300 ML BOTTLE PO PRN (23:32)
[2019-05-22] MEDS ORDERED: hydrOXYzine PAMOATE 25 MG CAPSULE (FP) PO PRN (23:32)
[2019-05-22] MEDS ORDERED: MAG HYDROX/AL HYDROX/SIMETH 30 ML UNIT-DOSE CUP PO PRN (23:32)
[2019-05-22] MEDS ORDERED: MAGNESIUM HYDROX 2400MG/30ML ORAL SUSPENSION 30 ML CUP PO PRN (23:32)
[2019-05-22] MEDS ORDERED: IBUPROFEN 400 MG TABLET (FP) PO PRN (23:32)
[2019-05-22] MEDS ORDERED: chlordiazePOXIDE HCL 25 MG CAPSULE PO PRN (23:32)
[2019-05-22] MEDS ORDERED: BISMUTH SUBSALICYLATE 524 MG/30 ML UD PO PRN (23:32)
[2019-05-22] MEDS ORDERED: ACETAMINOPHEN 325 MG TABLET (FP) PO PRN ×2 (23:32)
[2019-05-23] MEDS: chlordiazePOXIDE HCL 25 MG CAPSULE PO SCH ×5 (00:42→22:21)
--- NOTE | 2019-05-23 09:31 | PN ---
S CIWA - CIWA Score Nausea/Vomitin-Mild Nausea/No Vomiting Muscle Tremors: 4-Moderate,w/Arms Extend Anxiety: 3 Agitation: 3 Paroxysmal Sweats: 2 Orientation: 0-Oriented Tacttile Disturbances: 1-Very Mild Itch/Numbness Auditory Disturbances: 1-Very Mild Visual Disturbances: 0-None Headache: 1-Very Mild CIWA-Ar Total Score: 16 BHS Progress Note (SOAP) Subjective: 54 years old male admitted on 05/22/19 for alcohol withdrawal sx management treated with librium detox regimen reported taking suboxone 8-2mg sl tid last dose "days" ago due to "lost track" negative suboxone urine tox upon admission recommend suboxone detox detox patient refuses patient prefers to return to suboxone provider Arnol keller physician environmental emergencies assistant at [phone] 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
--- NOTE | 2019-05-23 09:31 | EKG ---
Test Reason : Blood Pressure : / mmHG Vent. Rate : 064 BPM Atrial Rate : 064 BPM P-R Int : 134 ms QRS Dur : 084 ms QT Int : 390 ms P-R-T Axes : 072 068 049 degrees QTc Int : 402 ms NORMAL SINUS RHYTHM NORMAL ECG WHEN COMPARED WITH ECG OF 11-APR-2018 14:27, NO SIGNIFICANT CHANGE WAS FOUND Confirmed by SHELBIE PEÑA MD ([id number]) on 05/23/2019 9:30:50 AM Referred By: Aravind Barragan Confirmed By:SHELBIE PEÑA MD
[2019-05-23 09:43] LABS: HEMATOCRIT 41.4 % (35.4-49); MCH 32.1 pg (25.7-33.7); MCHC 33.8 g/dl (32.0-35.9); MEAN CELL VOLUME 94.9 fl (80-96); MEAN PLT VOLUME 9.9 fl (7.5-11.1); PLATELET COUNT 152 K/MM3 (134-434); RBC 4.37 M/mm3 (4.00-5.60); RDW 12.7 % (11.9-15.9); WHITE BLOOD COUNT 5.7 K/mm3 (4.0-10.0)
[2019-05-23] MEDS: LISINOPRIL 10 MG TABLET (FP) PO SCH ×2 (10:16→22:22)
[2019-05-23] MEDS: NICOTINE 14 MG/24 HOURS TOPICAL PATCH TD SCH (10:16)
[2019-05-23] MEDS: NICOTINE 21 MG/24 HOURS TOPICAL PATCH TD SCH (10:16)
[2019-05-23] MEDS: PRENATAL VITAMINS W/ FOLIC ACID TABLET (FP) PO SCH (10:17)
[2019-05-23 10:24] LABS: ALBUMIN 3.2 g/dl (3.4-5.0); BILIRUBIN,TOTAL 0.3 mg/dL (0.2-1); BLOOD UREA NITROGEN 20.5 mg/dL (7-18); CALCIUM 9.1 mg/dL (8.5-10.1); TOT PROT 6.1 g/dl (6.4-8.2)
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
--- NOTE | 2019-05-23 12:55 | CONSULT ---
[facility] Psychiatric Consult - Data Date of interview: 05/23/19 Admission source: [facility]
[2019-05-23] MEDS: BUPRENORPHINE/NALOXONE 8 MG/2 MG FILM PACKET SL SCH ×2 (13:47→22:23)
[2019-05-23] MEDS ORDERED: QUEtiapine FUMARATE 100 MG TABLET (FP) PO SCH (22:00)
[2019-05-23] MEDS: THIAMINE HCL 100 MG TABLET (FP) PO SCH (22:22)
[2019-05-24] MEDS: BUPRENORPHINE/NALOXONE 8 MG/2 MG FILM PACKET SL SCH ×3 (05:39→22:23)
[2019-05-24] MEDS: chlordiazePOXIDE HCL 25 MG CAPSULE PO SCH ×4 (05:39→22:22)
[2019-05-24] MEDS: NICOTINE POLACRILEX 2 MG GUM BUC PRN ×3 (05:42→14:24)
[2019-05-24] MEDS: PRENATAL VITAMINS W/ FOLIC ACID TABLET (FP) PO SCH (10:04)
[2019-05-24] MEDS: NICOTINE 21 MG/24 HOURS TOPICAL PATCH TD SCH (10:04)
[2019-05-24] MEDS: LISINOPRIL 10 MG TABLET (FP) PO SCH ×2 (10:04→22:22)
[2019-05-24] MEDS: NICOTINE 14 MG/24 HOURS TOPICAL PATCH TD SCH (10:04)
[2019-05-24] MEDS: VENLAFAXINE HCL 75 MG E.R. CAPSULES (FP) PO SCH (10:18)
--- NOTE | 2019-05-24 13:27 | PN ---
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 05/25/19 patient prefers to go to rehab [place] tomorrow with transportation arranged patient is alert oriented x 3 speech clearly coherently Objective: 05/24/19 13:34 Vital Signs Temperature 97.1 F L 05/24/19 13:10 Pulse Rate 57 L 05/24/19 13:10 Respiratory Rate 18 05/24/19 13:10 Blood Pressure 121/64 05/24/19 13:10 O2 Sat by Pulse Oximetry (%) Laboratory Last Values WBC 5.7 K/mm3 (4.0-10.0) 05/23/19 07:10 RBC 4.37 M/mm3 (4.00-5.60) 05/23/19 07:10 Hgb 14.0 GM/dL (11.7-16.9) 05/23/19 07:10 Hct 41.4 % (35.4-49) 05/23/19 07:10 MCV 94.9 fl (80-96) 05/23/19 07:10 MCH 32.1 pg (25.7-33.7) 05/23/19 07:10 MCHC 33.8 g/dl (32.0-35.9) 05/23/19 07:10 RDW 12.7 % (11.9-15.9) 05/23/19 07:10 Plt Count 152 K/MM3 (134-434) D 05/23/19 07:10 MPV 9.9 fl (7.5-11.1) 05/23/19 07:10 Sodium 140 mmol/L (136-145) 05/23/19 07:10 Potassium 4.0 mmol/L (3.5-5.1) 05/23/19 07:10 Chloride 106 mmol/L (98-107) 05/23/19 07:10 Carbon Dioxide 31 mmol/L (21-32) 05/23/19 07:10 Anion Gap 3 MMOL/L (8-16) L 05/23/19 07:10 BUN 20.5 mg/dL (7-18) H 05/23/19 07:10 Creatinine 1.0 mg/dL (0.55-1.3) 05/23/19 07:10 Est GFR (CKD-EPI)AfAm 97.77 05/23/19 07:10 Est GFR (CKD-EPI)NonAf 84.35 05/23/19 07:10 Random Glucose 128 mg/dL (74-106) H 05/23/19 07:10 Calcium 9.1 mg/dL (8.5-10.1) 05/23/19 07:10 Total Bilirubin 0.3 mg/dL (0.2-1) 05/23/19 07:10 AST 17 U/L (15-37) 05/23/19 07:10 ALT 23 U/L (13-61) 05/23/19 07:10 Alkaline Phosphatase 86 U/L (45-117) 05/23/19 07:10 Total Protein 6.1 g/dl (6.4-8.2) L 05/23/19 07:10 Albumin 3.2 g/dl (3.4-5.0) L 05/23/19 07:10 RPR Titer Nonreactive (NONREACTIVE) 05/23/19 07:10 lab noted Assessment: 05/24/19 13:34 alcohol withdrawal sx Plan: continue librium detox regimen
--- NOTE | 2019-05-24 16:33 | PN ---
Psychiatric Progress Note Vital Signs: Vital Signs Period Temp Pulse Resp BP Sys/Montoya Pulse Ox Last 24 Hr 96.7 F-98.2 F 55-69 18-18 115-146/64-87 Date of Session: 05/24/19 Chief Complaint:: " Can i get an increase in Seroquel." HPI: Patient admitted to for alcohol, cocaine, cannabis, heroin, nicotine dependence. ROS: Patient is coherent, alert + oriented X3. Current Medications: Active Medications Generic Name Dose Route Start Last Admin Trade Name Freq PRN Reason Stop Dose Admin Acetaminophen 650 mg 05/22/19 23:32 Tylenol - PO Q6H PRN PAIN LEVEL 4 - 6 Acetaminophen 650 mg 05/22/19 23:32 Tylenol - PO Q6H PRN FEVER Al Hydroxide/Mg Hydroxide 30 ml 05/22/19 23:32 05/24/19 01:24 Mylanta Oral Suspension - PO 30 ml Q6H PRN Administration DYSPEPSIA Bismuth Subsalicylate 524 mg 05/22/19 23:32 Pepto-Bismol - PO Q1H PRN DIARRHEA Buprenorphine/Naloxone 1 each 05/23/19 14:00 05/24/19 14:05 Suboxone 8 Mg/2 Mg Film Packet SL 05/30/19 13:59 1 each TID LETICIA Administration Chlordiazepoxide HCl 10 mg 05/25/19 05:00 Librium - PO 05/25/19 23:01 [id number] LETICIA Chlordiazepoxide HCl 10 mg 05/26/19 05:00 Librium - PO 05/26/19 17:01 Q12H LETICIA Chlordiazepoxide HCl 10 mg 05/25/19 00:00 Librium - PO 05/26/19 00:00 Q4H PRN WITHDRAWAL(CONT SUBST) Chlordiazepoxide HCl 10 mg 05/27/19 05:00 Librium - PO 05/27/19 05:01 ONCE@0500 ONE Chlordiazepoxide HCl 25 mg 05/24/19 05:00 05/24/19 10:04 Librium - PO 05/24/19 23:01 25 mg [id number] LETICIA Administration Chlordiazepoxide HCl 25 mg 05/22/19 23:32 05/23/19 00:39 Librium - PO 05/24/19 23:59 25 mg Q4H PRN Administration WITHDRAWAL(CONT SUBST) Eucalyptus/Menthol/Phenol/Sorbitol 1 each 05/22/19 23:32 Cepastat Lozenge - MM 05/28/19 23:33 Q4H PRN SORE THROAT Famotidine 20 mg 05/24/19 15:40 Pepcid - PO BID LETICIA Hydroxyzine Pamoate 25 mg 05/22/19 23:32 05/24/19 01:24 Vistaril - PO 05/28/19 23:33 25 mg Q6H PRN Administration For Anxiety Lisinopril 10 mg 05/23/19 10:00 05/24/19 10:04 Prinivil PO 10 mg BID LETICIA Administration Magnesium Citrate 300 ml 05/22/19 23:32 Citroma - PO Q48H PRN CONSTIPATION Magnesium Hydroxide 30 ml 05/22/19 23:32 Milk Of Magnesia - PO PRN PRN CONSTIPATION Melatonin 5 mg 05/22/19 23:32 05/23/19 00:35 Melatonin PO 5 mg HS PRN Administration INSOMNIA Methocarbamol 500 mg 05/22/19 23:32 Robaxin - PO 05/28/19 23:33 Q6H PRN MUSCLE SPASMS Nicotine 21 mg 05/23/19 10:00 05/24/19 10:04 Nicoderm Patch - TD Not Given DAILY LETICIA Nicotine 14 mg 05/23/19 10:00 05/24/19 10:04 Nicoderm Patch - TD Not Given DAILY LETICIA Nicotine Polacrilex 2 mg 05/22/19 23:32 05/24/19 14:24 Nicorette Gum - BUC 2 mg Q2H PRN Administration NICOTINE REPLACEMENT RX Multivit/Folic Acid/Iron 1 tab 05/23/19 10:00 05/24/19 10:04 Vitamins (Sjr) - PO 1 tab DAILY LETICIA Administration Quetiapine Fumarate 100 mg 05/23/19 22:00 05/23/19 22:21 Seroquel - PO 100 mg HS LETICIA Administration Thiamine HCl 100 mg 05/23/19 22:00 05/23/19 22:22 Vitamin B1 - PO 100 mg HS LETICIA Administration Venlafaxine HCl 75 mg 05/24/19 10:00 05/24/19 10:18 Effexor Xr - PO 75 mg DAILY LETICIA Administration Medication(s) Change(s): Yes. Current Side Effect: No Lab tests ordered: No Lab tests reviewed: Yes Provider note:: Patient requesting an increase in seroquel. Patient see by Dr. Jennings. Dr. Jennings note read and appreciated. Reports receiving outpatient psychiatric care at [facility] and is prescribed effexor 75mg + Seroquel 400mg. Reports being off medications for several days. Dr. Jennings ordered effexor 75mg daily + Seroquel 100mg. Will d/c seroquel 100mg and will order Seroquel 200mg HS. Benefits and side effects discussed. Verbal consent given. Total face to face time:: 25 Mental Status Exam - Mental Status Exam Alert and Oriented to: Time, Place, Person Cognitive Function: Good Patient Appearance: Well Groomed Mood: Euthymic Affect: Mood Congruent Patient Behavior: Cooperative Speech Pattern: Appropriate Voice Loudness: Normal Thought Process: Goal Oriented Thought Disorder: Not Present Hallucinations: Denies Suicidal Ideation: Denies Homicidal Ideation: Denies Insight/Judgement: Poor Sleep: Poorly Appetite: Fair Muscle strength/Tone: Normal Gait/Station: Normal Psychiatric Treatment Plan - Problem List (1) Alcohol dependence with uncomplicated withdrawal Comment: .. (2) Opioid dependence Comment: .. (3) Substance-induced sleep disorder Comment: .. (4) Cocaine dependence Qualifiers: Complication of substance-induced condition: uncomplicated (5) History of depression Comment: .. (6) Nicotine dependence Qualifiers: Nicotine product type: cigarettes Substance use status: uncomplicated Qualified Code(s): F17.210 - Nicotine dependence, cigarettes, uncomplicated
[2019-05-24] MEDS: FAMOTIDINE 20 MG TABLET PO SCH ×2 (17:33→22:22)
[2019-05-24] MEDS ORDERED: QUEtiapine FUMARATE 100 MG TABLET (FP) PO SCH (22:00)
[2019-05-24] MEDS: THIAMINE HCL 100 MG TABLET (FP) PO SCH (22:23)
[2019-05-25] MEDS ORDERED: chlordiazePOXIDE HCL 10 MG CAPSULE PO PRN
[2019-05-25] MEDS ORDERED: chlordiazePOXIDE HCL 10 MG CAPSULE PO SCH (05:00)
[2019-05-25] MEDS: BUPRENORPHINE/NALOXONE 8 MG/2 MG FILM PACKET SL SCH (05:13)
[2019-05-25] MEDS: NICOTINE POLACRILEX 2 MG GUM BUC PRN (05:40)
[2019-05-25 09:09] VITALS: BP 131/70; PULSE 69; TEMP 98.2
[2019-05-25] MEDS: PRENATAL VITAMINS W/ FOLIC ACID TABLET (FP) PO SCH (09:36)
[2019-05-25] MEDS: VENLAFAXINE HCL 75 MG E.R. CAPSULES (FP) PO SCH (09:36)
[2019-05-25] MEDS: NICOTINE 21 MG/24 HOURS TOPICAL PATCH TD SCH (09:36)
[2019-05-25] MEDS: LISINOPRIL 10 MG TABLET (FP) PO SCH (09:36)
[2019-05-25] MEDS: NICOTINE 14 MG/24 HOURS TOPICAL PATCH TD SCH (09:36)
[2019-05-25] MEDS: FAMOTIDINE 20 MG TABLET PO SCH (09:36)
--- NOTE | 2019-05-25 10:41 | PN ---
[facility] COWS - Scale Resting Pulse: 0= IA 80 or Below Sweatin= No chills or Flushing Restless Observation: 1= Difficult to Sit Still Pupil Size: 1= Pupils >than Normal Bone or Joint Aches: 1= Mild Discomfort Runny Nose/ Eye Tearin= None GI Upset > 30mins: 0= None Tremor Observation of Outstretched Hands: 0= None Yawning Observation: 0= None Anxiety or Irritability: 1=Feels Anxious/Irritable Goose Flesh Skin: 0=Smooth Skin COWS Score: 4 [facility] Progress Note (SOAP) Subjective: alert,no complaint Objective: 05/25/19 10:40 Vital Signs Temperature 98.2 F 05/25/19 09:09 Pulse Rate 69 05/25/19 09:09 Respiratory Rate 18 05/25/19 09:09 Blood Pressure 131/70 05/25/19 09:09 O2 Sat by Pulse Oximetry (%) Assessment: 05/25/19 10:40 detox completed,no withdrawal symptom Plan: discharge today,follow up with [facility]
--- NOTE | 2019-05-25 10:44 | DS ---
[facility] Detox Discharge Summary Admission Date: 05/23/19 Discharge Date: 05/25/19 - History Present History: Alcohol Dependence, Cannabis Dependence, Cocaine Dependence, Opioid Dependence Additional Comments: [facility] Pertinent Past History: gerd hypertension nicotine dependence - Physical Exam Results Vital Signs: Vital Signs Temperature 98.2 F 05/25/19 09:09 Pulse Rate 69 05/25/19 09:09 Respiratory Rate 18 05/25/19 09:09 Blood Pressure 131/70 05/25/19 09:09 O2 Sat by Pulse Oximetry (%) Pertinent Admission Physical Exam Findings: withdrawal signs and syptom - Treatment Hospital Course: Detox Protocol Followed, Detoxed Safely - Medication Discharge Medications: Ambulatory Orders Venlafaxine HCl ER [Effexor Xr -] 75 mg PO DAILY #30 cap.er.24h 05/15/17 Quetiapine Fumarate [Seroquel -] 100 mg PO HS #30 tablet 07/02/17 Lisinopril [Prinivil] 10 mg PO BID #30 tablet 02/08/19 - Diagnosis (1) Opioid dependence with withdrawal Status: Acute (2) Alcohol dependence with uncomplicated withdrawal Status: Acute (3) Cannabis dependence, uncomplicated Status: Chronic (4) Cocaine dependence Status: Chronic Qualifiers: Complication of substance-induced condition: uncomplicated (5) GERD (gastroesophageal reflux disease) Status: Chronic Qualifiers: Esophagitis presence: esophagitis presence not specified Qualified Code(s) : K21.9 - Gastro-esophageal reflux disease without esophagitis (6) Hypertension Status: Chronic Qualifiers: Hypertension type: essential hypertension Qualified Code(s): I10 - Essential (primary) hypertension (7) Nicotine dependence Status: Chronic Qualifiers: Nicotine product type: cigarettes Substance use status: uncomplicated Qualified Code(s): F17.210 - Nicotine dependence, cigarettes, uncomplicated - AMA Did Patient Leave Against Medical Advice: No
[2019-05-26] MEDS ORDERED: chlordiazePOXIDE HCL 10 MG CAPSULE PO SCH (05:00)
[2019-05-27] MEDS ORDERED: chlordiazePOXIDE HCL 10 MG CAPSULE PO ONE (05:00)
== END 2019-05-25 09:20 | disposition other institution (70) | DRG 773 ==
LOC: YASAS 18:57 → Y6N 05-23 00:03 → Y3N 05-23 00:14
PROVIDERS: ADMIT Allergy & Immunology; ATTEND Allergy & Immunology
PROC: HZ2ZZZZ Detoxification Services for Substance Abuse Treatment (ICD-10-PCS; principal; 2019-05-23)
DX: F10.230 Alcohol dependence with withdrawal, uncomplicated (principal); F11.23 Opioid dependence with withdrawal; F14.20 Cocaine dependence, uncomplicated; F12.20 Cannabis dependence, uncomplicated; F17.210 Nicotine dependence, cigarettes, uncomplicated; F31.9 Bipolar disorder, unspecified; F19.24 Other psychoactive substance dependence with psychoactive substance-induced mood disorder; I10 Essential (primary) hypertension; K21.9 Gastro-esophageal reflux disease without esophagitis; G47.00 Insomnia, unspecified; M54.5 Low back pain; G89.29 Other chronic pain; Z91.19 Patient's noncompliance with other medical treatment and regimen
CPT/HCPCS: 36415; 80053; 85027; 86593; 93005; 93010